=== PATIENT | male | born 1940 | race Caucasian/White ===

== ENCOUNTER 2024-10-22 14:35 | Outpatient (CLI) | payer OTHER, SELFPAY | END 2024-10-22 14:36 | disposition home or self-care (01) | LOC: AMB 10-23 13:07 | PROVIDERS: PCP Family Medicine; Visit Provider Student in an Organized Health Care Education/Training Program | DX: S79.912A Unspecified injury of left hip, initial encounter (principal); W01.0XXA Fall on same level from slipping, tripping and stumbling without subsequent striking against object, initial encounter; Y92.128 Other place in nursing home as the place of occurrence of the external cause | CPT/HCPCS: A0425; A0429 ==

== ENCOUNTER 2024-10-22 15:04 | Inpatient (IN) | payer OTHER, MEDICARE, SELFPAY ==
[2024-10-22] VITALS (9 sets, daily range): BP systolic 127–144; BP diastolic 88–109; PULSE 86–110; RESP 18–20; TEMP 36.6–37.3; O2SAT 91–97; BMI 25.8; BMI 23.0
--- NOTE | 2024-10-22 15:21 | CRLHL7_ITS ---
For Patients: As a result of the Century Cures Act, medical imaging exams and procedure reports are released immediately into your electronic medical record. You may view this report before your referring provider. If you have questions, please contact your health care provider. INDICATION: Fall. Pain. COMPARISON: Plain films same date. TECHNIQUE: Multidetector imaging bony pelvis without for 4 months and axial coronal and sagittal small field if performance. FINDINGS: Mildly impacted 4 5 mm ventral displaced and slightly ventrally angulated fractures through the mid cervical femoral neck. Osteopenia. Moderately severe osteoarthritic changes of the hip. No intra-articular extension of fracture. No significant joint effusion. Trigger hematoma or other fluid collection. Intact pelvis. Moderate os arthritis SI joints with gracile anterior bridging osteophytes on the left. Moderate os arthritis symphysis pubis. Moderate osteoarthritis right hip. Redundant colon. Moderate stool. Prominent diffuse atherosclerotic vascular calcifications. Mild prostatomegaly. And right inguinal hernia. The this appears indirect. IMPRESSION: Acute mildly impacted and slightly displaced transcervical fracture left femoral neck. Please note that all CT scans at this facility use dose modulation, iterative reconstruction, and/or weight-based dosing when appropriate to reduce radiation dose to as low as reasonably achievable. Dictated by Norbert Rm MD @ 10/22/2024 4:23:48 PM (Electronically Signed)
--- NOTE | 2024-10-22 15:22 | CRLHL7_ITS ---
For Patients: As a result of the Cures Act, medical imaging exams and procedure reports are released immediately into your electronic medical record. You may view this report before your referring provider. If you have questions, please contact your health care provider. INDICATION: Trauma. TECHNIQUE: CT cervical spine without contrast. COMPARISON: None. FINDINGS: No acute fracture. No listhesis. Bony mineralization is age appropriate. No prevertebral soft tissue hematoma or swelling. No soft tissue abnormality is identified. Multilevel spondylosis. No pathologically enlarged lymph nodes. Thyroid is normal. Emphysema in the apices. IMPRESSION: Unremarkable cervical spine CT. Please note that all CT scans at this facility use dose modulation, iterative reconstruction, and/or weight-based dosing when appropriate to reduce radiation dose to as low as reasonably achievable. Dictated by Devante Chamberlain MD @ 10/22/2024 4:46:59 PM (Electronically Signed)
--- NOTE | 2024-10-22 15:22 | CRLHL7_ITS ---
For Patients: As a result of the Century Cures Act, medical imaging exams and procedure reports are released immediately into your electronic medical record. You may view this report before your referring provider. If you have questions, please contact your health care provider. INDICATION: Trauma. TECHNIQUE: Head CT without contrast. COMPARISON: None. FINDINGS: Periventricular areas of low attenuation, likely due to chronic small vessel ischemic changes. Generalized volume loss. Atherosclerosis. Motion degrades fine detailed evaluation of levels. No intracranial hemorrhage. No discrete mass or mass effect. There is no midline shift. The basilar cisterns are patent. No hydrocephalus. The ayon-white matter interface is otherwise preserved. No acute osseous abnormality. No extracalvarial soft tissue abnormality. The mastoid air cells are clear. The paranasal sinuses are well-aerated. The visualized portions of the orbits and globes are unremarkable. IMPRESSION: No acute intracranial process per unenhanced head CT given the above constraints. Please note that all CT scans at this facility use dose modulation, iterative reconstruction, and/or weight-based dosing when appropriate to reduce radiation dose to as low as reasonably achievable. Dictated by Devante Chamberlain MD @ 10/22/2024 4:44:21 PM (Electronically Signed)
--- NOTE | 2024-10-22 15:45 | CRLHL7_ITS ---
For Patients: As a result of the Cures Act, medical imaging exams and procedure reports are released immediately into your electronic medical record. You may view this report before your referring provider. If you have questions, please contact your health care provider. INDICATION: Left hip pain, fall, injury, hip fracture TECHNIQUE: Pelvis radiograph, Hip radiograph 3 views left COMPARISON: None FINDINGS: Bone: There is a nondisplaced impacted fracture present in the left femoral neck. A linear lucency is seen overlying the right posterior acetabular wall. Moderate diffuse osteopenia is present. Joint: Moderate bilateral hip osteoarthritis is present. The visualized sacroiliac joints are unremarkable in appearance. The pubic symphysis is normal in appearance. Soft tissue: Unremarkable. No radiopaque foreign bodies are seen. IMPRESSION: 1. There is a nondisplaced impacted fracture present in the left femoral neck. 2. A linear lucency is seen overlying the right posterior acetabular wall. This may be an os acetabulum but correlation with physical exam is recommended to exclude an acute fracture. Dictated by Bhargav Ramsey MD @ 10/22/2024 4:41:41 PM Dictated by: Bhargav Ramsey MD @ 10/22/2024 16:42:20 (Electronically Signed)
--- NOTE | 2024-10-22 15:45 | CRLHL7_ITS ---
For Patients: As a result of the Cures Act, medical imaging exams and procedure reports are released immediately into your electronic medical record. You may view this report before your referring provider. If you have questions, please contact your health care provider. INDICATION: Recent chest injury from fall TECHNIQUE: Chest radiograph 1 view COMPARISON: None FINDINGS: Mediastinum: The mediastinum is normal in appearance. The cardiac silhouette is moderately enlarged but may be accentuated by the portable technique. Lung: Minimal left basilar atelectasis is present. No sign of pleural effusion seen. No pneumothorax is identified. Bone and Soft tissue: Unremarkable for age. IMPRESSIONS: 1. The cardiac silhouette is moderately enlarged but may be accentuated by the portable technique. 2. If there is a high clinical index of suspicion for rib injury, dedicated rib series radiographs are recommended. Dictated by Bhargav Ramsey MD @ 10/22/2024 4:43:02 PM Dictated by: Bhargav Ramsey MD @ 10/22/2024 16:43:05 (Electronically Signed)
--- NOTE | 2024-10-22 16:12 | ED_ITS ---
HPI - Fall General Date Seen: 10/22/24 Chief Complaint: Fall/Minor Trauma Stated Complaint: Hip injury Source: EMS Mode of arrival: EMS Limitations: altered mental status History of Present Illness HPI Narrative: Patient is an 83-year-old male on hospice care through [facility] present he EMS after fall. Per staff he did have a fall were skin is left knee and was complaining about hip pain after that. They also states he did hit his head. He is typically is ambulatory to the brought him in for evaluation. He is at his cognitive baseline. No other concerns noted. When I asked the patient what hurts he points to his hip. Is unable to give further history due to his dementia. Related Data Home Medications ?Medication ?Instructions ?Recorded ?Confirmed hyoscyamine sulfate 0.125 mg 0.125 mg PO TID PRN 10/22/24 10/22/24 sublingual tablet lorazepam 0.5 mg tablet 0.5 mg PO Q4H PRN 10/22/24 10/22/24 melatonin 3 mg tablet 6 mg PO HS PRN 10/22/24 10/22/24 morphine concentrate 100 mg/5 mL 5 mg PO Q4H 10/22/24 10/22/24 (20 mg/mL) oral solution quetiapine 25 mg tablet 25 mg PO QHS 10/22/24 10/22/24 venlafaxine 75 mg tablet,extended 75 mg PO DAILY 10/22/24 10/22/24 release 24 hr Allergies Allergy/AdvReac Type Severity Reaction Status Date / Time No Known Drug Allergies Allergy Verified 10/22/24 16:54 Review of Systems Status of ROS: Reports: unobtainable due to mental status PFSH PFS Social History Smoking Status: Never smoker Do you use any of these nicotine containing products: None How often do you have a drink containing alcohol: never AUDIT-C Alcohol total score: 0 Non-prescribed substance use: denies use Exam Narrative: Exam Narrative: Const: In mild distress Eyes: PERRL, no conjunctival injection, and symmetrical lids HENT: Atraumatic external nose and ears. Moist mucous membranes. Neck: Symmetric, trachea midline, No thyromegaly. CVS: RRR, No murmurs or gallops. Peripheral pulses 2+ and equal in all extremities RESP: Unlabored respiratory effort. Clear to auscultation bilaterally. GI: Nontender/Nondistended, No rebound or guarding. MSK: Tenderness to palpation left hip, visually grimaces when I pressed to his left hip Skin: Warm, Dry. Abrasion just below left knee Neuro: Normal Muscle tone, No focal neurological deficits as far as can be determined due to his severe dementia Psych: Awake, Alert, but only oriented to self when it comes to pain Const: Vital Signs, click to edit/add: Vital Signs - 24 hr 10/22/24 15:09 Temperature 97.8 F Pulse Rate [Pulse Oximeter] 89 Respiratory Rate 20 Blood Pressure [Ri ght Upper Arm] 144/92 H Pulse Oximetry 97 Oxygen Delivery Me thod Room Air Course Vital Signs Vital signs: Initial Vital Signs Temperature 97.8 F 10/22/24 15:09 Temperature Source Temporal Artery Scan 10/22/24 15:09 Pulse Rate 89 10/22/24 15:09 Respiratory Rate 20 10/22/24 15:09 Blood Pressure 144/92 H 10/22/24 15:09 Blood Pressure Mean 109 H 10/22/24 15:09 Pulse Oximetry 97 10/22/24 15:09 Oxygen Delivery Method Room Air 10/22/24 15:09 Vital Signs Temperature 97.8 F 10/22/24 15:09 Pulse Rate 89 10/22/24 15:09 Respiratory Rate 20 10/22/24 15:09 Blood Pressure 144/92 H 10/22/24 15:09 Pulse Oximetry 97 10/22/24 15:09 Oxygen Delivery Method Room Air 10/22/24 15:09 Temperature 97.8 F 10/22/24 15:09 Pulse Rate 89 10/22/24 15:09 Respiratory Rate 20 10/22/24 15:09 Blood Pressure 144/92 H 10/22/24 15:09 Pulse Oximetry 97 10/22/24 15:09 Oxygen Delivery Method Room Air 10/22/24 15:09 Medications Administered Medications: Discontinued Medications Generic Name Dose Route Start Last Admin Trade Name Freq PRN Reason Stop Dose Admin Lorazepam 0.5 mg 10/22/24 16:42 10/22/24 16:50 Lorazepam 0.5 Mg Tablet PO 10/22/24 16:43 0.5 mg ONCE ONE Administration Oxycodone HCl 5 mg 10/22/24 16:55 03/18/25 16:57 Oxycodone 5 Mg Tablet PO 10/22/24 16:56 5 mg ONCE ONE Administration Quetiapine Fumarate 25 mg 10/22/24 17:44 10/22/24 17:54 Quetiapine 25 Mg Tablet PO 10/22/24 17:45 25 mg ONCE ONE Administration MDM - Fall MDM Narrative Medical decision making narrative: Patient is a 3-year-old male presenting after a fall. Since his belief he hit his head will do CT scan head and cervical spine. Does have tenderness to his left hip as he visually grimaces when I push there does not grimace with depression your hours. Do believe I will need to do a CT scan of the hip to rule out any fractures. CT scan returned showing a left hip fracture. Will go and order a hip x-ray and chest x-ray for surgical planning. CT scan of the head and cervical spine reviewed by myself and the radiologist shows no acute fractures. Did do an EKG it shows he is in AFib. Since he is on hospice I had a conversation with the daughter on if she would even want surgery for him at this time. She states he is a very active person and gets most of his interim it from walking around his dementia work so she would like him to be admitted. I then spoke to the orthopedic provider who says that can do surgery on her tomorrow. I spoke to the hospitalist I was told that the patient has to have her hospice revoked. I then had multiple phone calls calling the daughter multiple times, her hospice provider multiple times, the hospitalist here [place] multiple times and while her hospice provider was saying he does not need to be off hospice everyone here in [place] says he needs to be off hospice to be admitted. The daughter did have some concern about him getting back on hospice after admission but I was told this should not be too much of a problem. She will take him off hospice and he will be admitted. Imaging Data CT scan head: Attestation: I have reviewed the pertinent imaging results. Radiologist's impression: No acute intracranial process per unenhanced head CT given the above constraints. Please note that all CT scans at this facility use dose modulation, iterative reconstruction, and/or weight-based dosing when appropriate to reduce radiation dose to as low as reasonably achievable. Dictated by Devante Chamberlain MD @ 10/22/2024 4:44:[address] scan cervical spine: Attestation: I have reviewed the pertinent imaging results. Radiologist's impression: Unremarkable cervical spine CT. Please note that all CT scans at this facility use dose modulation, iterative reconstruction, and/or weight-based dosing when appropriate to reduce radiation dose to as low as reasonably achievable. Dictated by Devante Chamberlain MD @ 10/22/2024 4:46:59 PM Chest x-ray: Attestation: I have reviewed the pertinent imaging results. Radiologist's impression: 1. The cardiac silhouette is moderately enlarged but may be accentuated by the portable technique. 2. If there is a high clinical index of suspicion for rib injury, dedicated rib series radiographs are recommended. Dictated by Bhargav Ramsey MD @ 10/22/2024 4:43:[address] scan hip: Attestation: I have reviewed the pertinent imaging results. Radiologist's impression: Acute mildly impacted and slightly displaced transcervical fracture left femoral neck. Please note that all CT scans at this facility use dose modulation, iterative reconstruction, and/or weight-based dosing when appropriate to reduce radiation dose to as low as reasonably achievable. Dictated by Norbert Rm MD @ 10/22/2024 4:23:48 PM Hip x-ray: Attestation: I have reviewed the pertinent imaging results. Radiologist's impression: 1. There is a nondisplaced impacted fracture present in the left femoral neck. 2. A linear lucency is seen overlying the right posterior acetabular wall. This may be an os acetabulum but correlation with physical exam is recommended to exclude an acute fracture. Dictated by Bhargav Ramsey MD @ 10/22/2024 4:41:41 PM ECG Data Attestation: I personally reviewed and interpreted this ECG as follows: Prior ECG tracings: not available for review Interpretation: AFib with a rate of 113 beats per minute, normal QRS, normal QTC, no ST or T- wave abnormalities. There was a large amount of artifact due to difficulty the patient still. Discharge Plan Discharge Clinical Impression: Closed fracture of left hip Qualifiers: Encounter type: initial encounter Qualified Code(s): S72.002A - Fracture of unspecified part of neck of left femur, initial encounter for closed fracture Patient Disposition: Admitted As Observation Condition: Stable Prescriptions: No Action venlafaxine 75 mg tablet extended release 24hr 75 mg PO DAILY quetiapine 25 mg tablet 25 mg PO QHS melatonin 3 mg tablet 6 mg PO HS PRN hyoscyamine sulfate 0.125 mg tablet, sublingual 0.125 mg PO TID PRN lorazepam 0.5 mg tablet 0.5 mg PO Q4H PRN morphine concentrate 100 mg/5 mL (20 mg/mL) solution 5 mg PO Q4H Follow Up/Referrals: Azael Beard MD [Primary Care Provider] -
[2024-10-22] MEDS: LORazepam 0.5 MG TABLET PO (16:50)
[2024-10-22] MEDS: OXYCODONE 5 MG TABLET PO (16:57)
--- OUTSIDE RECORDS SUMMARY | 2024-10-22 16:59 | XMS_ITS | Encounter Summary ---
Author Name [facility] [place] [facility] [place] Address [address], [place] [address] Care Team Providers Care Oil Deliverer Name Role Phone RANDA MARQUIS Primary Care Provider Unavailabl e Insurance Providers: All historical and current Section Date Range: From patient's date of to the date document was created. This section includes the names of all active insurance providers for the patient. Insurance Provider Type of Coverage Plan Name Start of Policy Coverage End of Policy Coverage Group Number Member ID Insurance Provider's Telephone Number Policy Henriquez's Name Patient's Relationship to Policy Henriquez MEDICARE (WNR) MEDICARE (M) PART A Nov 05, 2006 PART A [id number] Calos WEEKS RTMagaly PATIENT Selected Encounter This section includes the information on record at [place] for the Encounter. Date/Time Encounter Type Encounter Description Reason Pro vider Source Oct 24, 2023 10:26 AM Outpatient Encounter CLINICAL PHARMACY IHE Encounter Template Text not used by [place] Plan of Treatment: Future Appointments (+ 6 months) and Future Tests (+/- 45 days) The Plan of Treatment section includes future care activities for the patient from all [facility] treatment[facility]ilities. This section includes future appointments and future orders which are active, pending or scheduled. Future Appointments This section includes appointments that were scheduled to occur 6 months from the date of the Encounter, up to a maximum of 20 appointments. The data comes from all [place] treatment [facility]. Appointment Date/Time Appointment Type Appointme nt Facility Name Nov 09, 2023 01:30 PM [place]IC[place] [facility] Nov 09, 2023 02:00 PM [facility] [place]IC[place] [facility] Nov 10, 2023 01:00 PM [facility] - MEDICINE [facility] Nov 18, 2023 12:01 PM [facility]ORY - NONE [place] [facility] Nov 21, 2023 08:00 AM [place]ORY - NONE [place] [facility] Nov 21, 2023 08:01 AM [facility]ORY - NONE [place] [facility] Nov 29, 2023 03:00 PM AMBULATORY - REHAB MEDICIN E [facility] Dec 01, 2023 08:00 AM [facility]ORY - NONE [place] [facility] Dec 01, 2023 08:01 AM [place]ORY - NONE [place] [facility] December 14, 2023 05:00 PM AMBULATORY - REHAB MEDICIN E [facility] Jan 19, 2024 09:30 AM AMBULATORY - MEDICINE [facility] Jan 20, 2024 08:01 AM AM[facility]UL[facility]ORY - NONE [place] [facility] Feb 14, 2024 03:30 PM [place]ORY - [place]ICINE [place] [facility] Feb 26, 2024 01:15 PM [facility]ORY - NONE [place] [facility] Feb 26, 2024 02:00 PM AMBULATORY - REHAB MEDICIN E [facility] Mar 04, 2024 09:00 AM [facility] Mar 05, 2024 02:30 PM [facility] [place] [facility] Mar 15, 2024 11:00 AM [facility]ORY - NONE [place] [facility] Mar 27, 2024 08:30 AM AMBULATORY - PS[facility]CHIATRY [facility] Mar 27, 2024 08:31 AM AMBULATORY - PSYCHIATRY [facility] Lab Results: +/- 30 days of the encounter This section includes the Chemistry and Hematology Lab Results on record with [place] for the patient. Radiology Reports and Pathology Reports are provided separately, in subsequent sections. Lab Results This section contains the Chemistry/Hematology Results that were resulted 30 days before or 30 daysafter the date of the Encounter. Date/Time Source Result Type Result - Unit Interpretation Reference Range Comment Oct 24, 2023 01:50 PM [facility] URINALYSIS Specimen Type: URINE No comment entered. Ordering Provider: TOYIN WOLF Report Released Date/Time: Oct 24, 2023 12:23 PM Reporting Lab: [facility] [id number] Performing Lab: [facility] [id number] URINE COLOR COLORLESS SPECIFIC GRAVITY 1.011 1.003-1.03 5 URINE BILIRUBIN NEGATIVE NEGATIVE URINE KETONES NEGATIVE NEGATIVE URINE GLUCOSE NEGATIVE mg/dL URINE PROTEIN NEGATIVE mg/dL URINE PH 5.0 5.0-8.0 URINE WBC/HPF NONE SEEN /[HPF] 0-7 URINE BACTERIA NONE SEEN URINE RBC/HPF <1 /[HPF] 0-3 APPEARANCE CLEAR SQUAMOUS EPITHELIAL NONE SEEN /[HPF] URINE BLOOD NEGATIVE NEGATIVE URINE NITRITE NEGATIVE NEGATIVE LEUKOCYTE ESTERASE NEGATIVE NEGATIVE Oct 24, 2023 12:46 PM [facility] B 12 Specimen Type: SERUM No comment entered. Ordering Provider: TOYIN WOLF Report Released Date/Time: Oct 24, 2023 12:23 PM Reporting Lab: [facility] [id number] Performing Lab: [facility] [id number] B 12 454 pg/mL 213-816 Oct 24, 2023 12:46 PM [facility] FOLATE Specimen Type: SERUM No comment entered. Ordering Provider: TOYIN WOLF Report Released Date/Time: Oct 24, 2023 12:23 PM Reporting Lab: [facility] [phone] Performing Lab: [facility] [id number] FOLATE 14.1 ng/mL >7.0 Oct 24, 2023 12:46 PM [facility] BNP Specimen Type: PLASMA No comment entered. Ordering Provider: TOYIN WOLF Report Released Date/Time: Oct 24, 2023 12:23 PM Reporting Lab: [facility] [id number] Performing Lab: [facility] [id number] BNP 100 pg/mL H <99 Oct 24, 2023 12:46 PM [facility] COMPREHENSIVE METABOLIC PANEL+MG Specimen Type: PLASMA No comment entered. Ordering Provider: TOYIN WOLF Report Released Date/Time: Oct 24, 2023 12:23 PM Oct 24, 2023 12:46 PM [facility] TSH W/REFLEX TO FREE T4 Specimen Type: PLASMA No comment entered. Ordering Provider: TOYIN WOLF Report Released Date/Time: Oct 24, 2023 12:23 PM Reporting Lab: [facility] [phone] Performing Lab: [facility] [phone] TSH 3.11 u[IU]/mL 0.35-4.94 Oct 24, 2023 12:46 PM [facility] PROTHROMBIN TIME/INR Specimen Type: PLASMA No comment entered. Ordering Provider: TOYIN WOLF Report Released Date/Time: Oct 24, 2023 12:23 PM Reporting Lab: [facility] [phone] Performing Lab: [facility] [phone] .INR 1.2 H 0.8-1.1 .PT 13.8 s H 9.4-12.5 Oct 24, 2023 12:46 PM [facility] CBC & DIFF Specimen Type: BLOOD Comment: Automated Differential Performed Ordering Provider: TOYIN WOLF Report Released Date/Time: Oct 24, 2023 12:23 PM Reporting Lab: [facility] [phone] Performing Lab: [facility] [phone] WBC 8.08 10*3/uL 4.0-11.0 RBC 4.78 10*6/uL 4.6-6.2 HGB 14.5 g/dL 13.5-17.9 HCT 44.1 41-54 MCV 92.3 fL 80-100 MCH 30.3 pg 27-33 MCHC 32.9 g/dL 32.0-37.5 PLT 178 10*3/uL 150-400 MPV 8.7 fL 7.4-10.4 NEUT 59.8 40.0-80.0 LYMPHS 27.6 15.0-45.0 MONO 7.4 2.0-12.0 EOSINO 3.8 0.0-6.0 BASO 1.0 0.0-2.0 RDW 12.5 11.5-14.5 ABS LYMPH 2.23 10*3/uL 1.0-4.0 ABS MONO 0.60 10*3/uL 0.1-1.0 ABS NEUT 4.83 10*3/uL 2.0-7.7 ABS EOS 0.31 10*3/uL 0-0.5 ABS BASO 0.08 10*3/uL 0-0.2 IG(META,MYELO,P RO) 0.4 ABS IMMATURE GRAN 0.03 10*3/uL 0-0.1 Vital Signs: All taken on the encounter date This section contains inpatient and outpatient Vital Signs collected on the date of the Encounter. Date/Time Temperature Pulse Blood Pressure Respiratory Rate SP02 Pain Height Weight Body Mass Index Source Oct 24, 2023 03:27 PM 202 [facility] Oct 24, 2023 02:15 PM 75 134/83 20 99 [facility] Oct 24, 2023 11:19 AM 78 16 99 1 [facility] Oct 24, 2023 11:19 AM 97.5 132/94 [facility] Advance Directives: All historical and current Section Date Range: From patient's date of to the date document was created. This section includes ALL of a patient's completed or amended [place] Advance and Rescinded Directives. The entries below indicate that a directive exists for the patient, but an actual copy is not included with this document. The data comes from all [place] facilities. Date Advance Directives Provider Source Jan 30, 2024 ADVANCE DIRECTIVE JAYME CORTEZ [facility] Jan 30, 2024 ADVANCE DIRECTIVE DISCUSSION GILDARDO CORTEZ [facility] Jan 29, 2024 STATE-AUTHORIZED POR TABLE ORDERS SUE PINO [facility] Oct 24, 2023 RESCINDED ADVANCE DIRECTIVE JASON [facility] Oct 24, 2023 ADVANCE DIRECTIVE DISCUSSION SUPA LUOIS [facility] Radiology Reports: +/- 30 days of the encounter Radiology Reports For cases when an order for radiology services may have been completed prior to the date of the Encounter, the report list includes the Radiology Reports that were completed up to 30 days before dateof the Encounter. For cases when an order for radiology services may have been completed after the date of the Encounter, the report list also includes the Radiology Reports that were completed up to30 days after date of the Encounter. The data comes from all [place] treatment facilities. Date/Time Radiology Report Provider Source Oct 24, 2023 01:37 PM CHEST 2 VIEWS PA A ND LAT: JUSTYNA WEEKS [id number] -[id number] M Exm Date: OCT 24, 2023@13:37 Req Phys: TOYIN WOLF Loc: [facility] EMERGENCY DEPT WALK-IN (Re Img Loc: MAIN X-RAY Service: Unknown (Case [id number] COMPLETE) CHEST 2 VIEWS PA AND LAT (RAD Detailed) CPT:52127 Reason for Study: CHF Clinical History: IS NOT under investigation for COVID-19 or is COVID-19 negative CHF, dementia Responsible provider name and phone number to notify for critical findings if other than user placing the order and pager listed below: User placing orders pager: [phone] LAST CREATININE____ Report Status: Verified Date Reported: OCT 24, 2023 Date Verified: OCT 24, 2023 Powerhouse Mechanic Apprentice E-Sig:/ES/SIENNA CARPIO MD, FACR, CCD Report: EXAMINATION: CHEST 2 VIEWS PA AND LAT 10/24/2023 1:37 PM INDICATION: CHF COMPARISON: None. FINDINGS: The cardiac silhouette appears to be borderline enlarged. The pulmonary vasculature appears to be within normal limits. The lungs appear clear of infiltrate. No pleural fluid identified. Degenerative changes thoracic spine. Impression: No active pulmonary disease identified. Primary Interpreting Staff: SIENNA CARPIO MD, FACR, STAFF RADIOLOGIST (Powerhouse Mechanic Apprentice) /BSF SIENNA CARPIO [facility] Oct 24, 2023 01:[address] HEAD (P): JUSTYNA WEEKS [id number] -[id number] M Exm Date: OCT 24, 2023@13:25 Req Phys: TOYIN WOLF Loc: [facility] EMERGENCY DEPT WALK-IN (Re Img Loc: CT IMAGING Service: Unknown (Case [id number] COMPLETE) CT HEAD/BRAIN W/O CONTRAST (CT Detailed) CPT:69347 Reason for Study: AMS Clinical History: LAST 3: No data available for: CREATININE .CREAT EGFR(CKD-EPI) Allergies: (Fords only) Patient has answered NKA Defer to radiologist for final CT protocol. Contact number for responsible provider who can be reached for any questions or notifications of critical findings: ER Sergio Per Joint Commission Standards, by signing this diagnostic imaging request the ordering provider confirms they have considered patients age and recent imaging history. Report Status: Verified Date Reported: OCT 24, 2023 Date Verified: OCT 24, 2023 Powerhouse Mechanic Apprentice E-Sig:/ES/CITLALI MERA MD Report: EXAM: CT HEAD/BRAIN W/O CONTRAST HISTORY: AMS Reason for Study: AMS LAST 3: No data available for: CREATININE .CREAT EGFR(CKD-EPI) Allergies: ([place]ords only) Patient has answered NKA Defer to radiologist for final CT protocol. Contact number for responsible provider who can be reached for any questions or notifications of critical findings: JESSE Wolf Per Joint Commission Standards, by signing this diagnostic imaging request the orderi COMPARISON: None TECHNIQUE: Routine axial noncontrast acquisition. Routine sagittal and coronal reconstructions. Dose: Total DLP 806. FINDINGS: Small focus of encephalomalacia at the right occipital lobe consistent with chronic infarct. Small focus of encephalomalacia at the right cingulate gyrus consistent with chronic infarct. Small focus of encephalomalacia at the right temporal lobe consistent with a chronic infarct. Patchy areas of hypodense white matter in the cerebral hemispheres consistent with small vessel ischemia. Remaining brain parenchyma is within normal limits. No evidence of intracranial hemorrhage, intracranial mass effect or hydrocephalus. Arterial calcification at the anterior circulation. Imaged paranasal sinuses are within normal limits. Skull is within normal limits. Impression: 1. 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 2. Mild amount of small vessel ischemia. 3. Arterial calcification. Primary Interpreting Staff: CITLALI MERA MD, RADIOLOGIST (Powerhouse Mechanic Apprentice) /CITLALI PIZANO [facility] Encounter Notes: All associated encounter notes This section contains the clinical notes associated to the Encounter. Date/Time Encounter Note(s) Provider Source Oct 24, 2023 02:45 PM REPORT OF CONTACT: LOCAL TITLE: PATIENT CONTACT NOTE - PHARMACY STANDARD TITLE: REPORT OF CONTACT DATE OF NOTE: OCT 24, 2023@14:45 ENTRY DATE: OCT 24, 2023@14:45:52 AUTHOR: CESAR SEXTON EXP COSIGNER: URGENCY: STATUS: COMPLETED Patient Contact Name/Relationship of contact if other than : Nuzhat (daughter) Date & Time of Contact: Oct@12:00 Type of Contact: In person Reason for Contact: Other: Identification of patient medictions which were presented by family in a bag. All meds on this list EXCEPT alprazolam were in the patient's bag given to pharmacy for identification. Alprazolam was not present with the patient or family at time of interview. All meds in this bag were returned to family with instructions for the family to take the meds home or to destroy the medications. Action: Other: Medications identified and list created (see below). Comments: Belarusian/ Greek Alprazolam 2mg (1/2 tablet)/ Alprazolam Brexpiprazole 2mg/ Brexpiprazole Dabigatran 110 mg capsule/ Dabigatran Donepecilo 10mg tablets/ Donepexil Enalapril 10mg tabletas/ Enalapril Espironolactona 25mg tablets/ Spiranolactone Furosemida tabletas 40mg/ Furosemide Pancreatina Capsula 150mg (Creon)/ Creon * Lipasa/Lipase 10,000 UI * Amilasa/Amylase 45,600 UI * Proteasa/Protease 38,400 UI Sertraline Amarox 50mg filmomhulde tableten (Mongolian) Sertraline Sertalina Capsulas 50mg Sertraline Sildenafilo 50mg/ Sildenafil Vortioxetina Timothy 10mg/ Vortioxetine NON-LEGEND OTC PRODUCTS Centrum Balance Tabletas (multivitamin) Centrum Balance Centrum Silver +50 Tabletas (multivitamin) Centrum Silver +50 /es/ CESAR SEXTON Pharmacist Signed: 10/24/2023 15:02 CESAR SEXTON [facility]
--- OUTSIDE RECORDS SUMMARY | 2024-10-22 16:59 | XMS_ITS | Encounter Summary ---
Author Name [place] Address [address], [place] [address] Care Team Providers Care Support Teacher Name Role Phone RANDA MARQUIS Primary Care [...] PART A Nov 05, 2006 PART A [id number] [phone] Calos WEEKS RTR PATIENT Selected Encounter This section includes the information on record at [place] for the Encounter. Date/Time Encounter Type Encounter Description Reason Provider Source Oct 15, 2024 12:25 PM RN CARE EA 15 MIN HH/HOSPICE [facility] FOLLOW-UP ICD-10-CM F03.B18 Unsp dementia, moderate, with other behavioral disturb TERELL AGUILA Encounter Template Text not used by [facility] Assessments - Encounter Diagnoses This section includes the primary and secondary diagnoses documented for the Encounter. Date/Time Primary/Secondary Diagnosis Diagnosis Name Provider Source Oct 16, 2024 10:32 AM PRIMARY Unsp dementia, moderate, with other behavioral disturb TERELL AGUILA [facility] Plan of Treatment: Future Appointments (+ 6 months) and Future Tests (+/- 45 days) The Plan of Treatment section includes future care activities for the patient [facility] [place] [facility] This section includes future appointments and future orders which are active, pending or scheduled. Future Appointments This section includes appointments that were scheduled to occur 6 months from the date of the Encounter, up to a maximum of 20 appointments. The data comes from all [place] treatment facilities. Appointment Date/Time Appointment Type Appointme nt Facility Name Nov 06, 2024 02:30 PM AMBULATORY - MEDICINE [facility] Advance Directives: All historical and current Section Date Range: From patient's date of to the date document was created. This section includes ALL of a patient's completed or amended [place] Advance and Rescinded Directives. The entries below indicate that a directive exists for the patient, but an actual copy is not included with this document. The data comes from all [facility]. Date Advance Directives Provider Source Jan 30, 2024 ADVANCE DIRECTIVE JAYME CORTEZ [facility] Jan 30, 2024 ADVANCE DIRECTIVE DISCUSSION GILDARDO CORTEZ [facility] Jan 29, 2024 STATE-AUTHORIZED POR TABLE ORDERS SUE PINO [facility] Oct 24, 2023 RESCINDED ADVANCE DIRECTIVE JASON [facility] Oct 24, 2023 ADVANCE DIRECTIVE DISCUSSION SUPA [facility] Encounter Notes: All associated encounter notes This section contains the clinical notes associated to the Encounter. Date/Time Encounter Note(s) Provider Source Oct 16, 2024 10:25 AM COMMUNITY SHELTER CARE NOTE: LOCAL TITLE: COMMUNITY SHELTER RESIDENT ASSESSMENT STANDARD TITLE: COMMUNITY SHELTER CARE NOTE DATE OF NOTE: OCT 16, 2024@10:25 ENTRY DATE: OCT 16, 2024@10:25:42 AUTHOR: SCOTT AGUILA COSIGNER: URGENCY: STATUS: COMPLETED SUBJECT: [facility] ([facility]) Resident Assessment GENERAL INFORMATION DS - Disabilities Eligibility: NSC VERIFIED Visit completed by: Nurse Date of visit: October 15, 2024 [facility] ([facility]) Name: [facility] Type of visit: On-site Information provided by: [place] Reason for placement: Hospice INFORMATION OBTAINED DURING VISIT WITH ASSESSMENT OF COGNITION, COMMUNICATION, MOOD AND BEHAVIOR ----- Mental status: Alert voiced, experienced, or reported delusions (misconceptions or beliefs that are firmly held, contrary to reality), hallucinations (perceptual experiences in the absence of real or external sensory stimuli) or any other unusual thought process/content/altered perception during the visit: No Thought content: Within normal limits Mood/behavior: Cooperative/pleasant Hearing: Adequate (no difficulty in normal conversation) Vision: Impaired- utilizes corrective lenses Speech: Clear speech (distinct intelligible words) Communication (ability to understand): Sometimes understands (responds to simple/direct communication only) Communication (ability to be understood): Sometimes understood (ability is limited) SUICIDE SCREEN Annual C-SSRS completed. SATISFACTION is satisfied with care received at the [facility]. [place] reported no other concerns/complaints since placement or last visit. /Dater Assembler feels 's rights as a resident of a halfway have been maintained (i.e., the right to be treated with dignity and respect, free from abuse, neglect and discrimination based on race, color, national origin, disability, age, sex, sexual orientation, or spiritism): Yes [facility] staff provided a copy of the [place] reference sheet, containing contact information for [facility] staff and the [facility] margarita, to the /Dater Assembler: N/A, annual requirement previously met appears to be well adjusted to residing in this [facility]: Yes [place] is offered daily activities: Yes [place] is offered spiritual services: Yes [facility] STAFF OBSERVATIONS Quality of sensory and environmental aesthetic is adequate: Yes Facility cleanliness is adequate: Yes Fluids available: Yes [place]'s appearance: [place] appeared: Appropriately groomed, dressed for time of day long term staff is courteous: Not observed Total time spent for visit (in minutes) 5 min Total travel time 90 min INFORMATION OBTAINED FROM [facility] MEDICAL RECORD REVIEW Hospitalization since placement or last visit: No Emergency room visit since placement or last visit: No CLINICAL REVIEW Socialization Ability: Fair Restraint free since placement or last visit: Yes Behavioral symptoms present: No FUNCTIONAL STATUS Activity of Daily Living (ADL) Loss of ADL function since placement or last visit: No Weights and vital signs recorded monthly, or as ordered: Yes Most recent weight taken by [facility] staff: Weight (lbs): 174 Date: October 13, 2024 Weight loss of 5% or greater in the last 3 months: Yes Explanation: hospice, comfort focus Diet: Regular Skin assessment completed at appropriate intervals: Yes Pressure injuries: None Specialized wound care: None Pain management is effective: Yes DOCUMENTATION OVERSIGHT Physician, Nursing, and Investigator Welfare documentation completed at regular intervals in accordance with State regulations: Yes assessed by a provider at required intervals: Yes As needed (PRN) medication effectiveness is documented: Yes [facility] Plan of Care updated: Yes Date Plan of Care updated: September 12, 2024 Care plan reflects [place]'s individualized care needs and includes multidisciplinary participation: Yes LIFE-SUSTAINING TREATMENT [place]'s preferences for Life-Sustaining Treatment (LST) are documented and have been reviewed in the [facility] medical record: No [place]'s Life-Sustaining Treatment (LST) progress note and orders are documented in the [place] medical record: No Explanation: NA SAFETY ------ has not fallen since placement or last visit. No medication errors since placement or last visit. [place] attempted to elope from the facility: No Evidence of abuse/neglect either confirmed or under investigation: No Other adverse event(s) since placement or last visit: No LEVEL OF CARE MDS RUG or PDPM score is consistent with the [place]'s care needs. DISPOSITION appears with low care needs where an alternative level of care may be appropriate: No Discharge plan in place: N/A, [place] is receiving intermediate designer care (LTC) PROGRAM CARE COORDINATION PLAN ---- [place] PLAN OF CARE: Routine oversight of veterans [facility] care Total time spent for chart review (in minutes) 15 min /tierra/ Scott Aguila, blending operator Health Nurse Coordinator Signed: 10/16/2024 10:32 SCOTT AGUILA [facility]
--- OUTSIDE RECORDS SUMMARY | 2024-10-22 16:59 | XMS_ITS | Encounter Summary ---
Author Name [facility] [place] Address [address] [facility], [place] [address] Care Team Providers Care Golf Ball Trimmer Name Role Phone SOLITARIO MARQUISE Primary Care Provider Ibis birch Insurance Providers: All historical and current Section [...] PART A Nov 05, 2006 PART A [id number] [phone] Calos WEEKS RTMagaly PATIENT Selected Encounter This section includes the information on record at [place] for the Encounter. Date/Time Encounter Type Encounter Description Reason Provider Source Oct 10, 2024 03:00 PM Outpatient Encounter TELEPHONE TRIAGE MARIA E LEVI Encounter Template Text not used by [place] Plan of Treatment: Future Appointments (+ 6 [...] 20 appointments. The data comes from all [facility] facilities. Appointment Date/Time Appointment Type Appointme nt Facility Name Nov 06, 2024 02:30 PM [facility] Advance Directives: All historical and current Section Date Range: From patient's date of to the date document was created. This section includes ALL of a patient's completed or amended [place] Advance and Rescinded Directives. The entries below indicate that a directive exists for the patient, but an actual copy is not included with this document. The data comes from all [facility]. Date Advance Directives Provider Source Jan 30, 2024 ADVANCE DIRECTIVE JAYME CORTEZ [facility] Jan 30, 2024 ADVANCE DIRECTIVE DISCUSSION GILDARDO CORTEZ [facility] Jan 29, 2024 STATE-AUTHORIZED POR TABLE ORDERS SUE [facility] Oct 24, 2023 RESCINDED ADVANCE DIRECTIVE JASON [facility] Oct 24, 2023 ADVANCE DIRECTIVE DISCUSSION SUPA [facility] Encounter Notes: All associated encounter notes This section contains the clinical notes associated to the Encounter. Date/Time Encounter Note(s) Provider Source Oct 10, 2024 03:00 PM RN PROGRESS NOTE: LOCAL TITLE: CCC: CLINICAL TRIAGE STANDARD TITLE: RN PROGRESS NOTE DATE OF NOTE: OCT 10, 2024@15:00:37 ENTRY DATE: OCT 10, 2024@15:00:37 AUTHOR: MARIA E LEVI COSIGNER: URGENCY: STATUS: COMPLETED Patient Demographics Patient Name: JUSTYNA WEEKS Patient Primary Address: [address] [place] [address] Patient Primary Phone: [phone] Patient : 1940 Patient Age: 83 Call Back Number: [phone] Caller/Recipient Relation to Patient: Other If Other Describe Relation to Patient: Daughter Caller Name: Mary Alice Watson Emergency Contact: NANDINI WATSON Triage Summary Conducted triage/discussed symptoms Pain Score: 8 (Severe Pain) Utilized the Triage Tool: Yes Chief Complaint: Skin Lesion System WHEN: Within 8 Hours Nurse's Recommendation / WHEN: Within 24 Hours System WHERE: Urgent care center Nurse's Recommendation / WHERE: Other Nurse's Other / WHERE: Hospice team Patient Disposition Patient/Caregiver agrees to plan of care: Yes Patient WHERE: Other Other - Patient Where Disposition: Hospice team Patient WHEN: Within 24 hours Nursing Plan and Disposition Other course(s) of action Generated msg to PACT/Provider Provided guidance for worsening symptoms: *Caller/Patient* advised to call facilities [place] Clinical Contact Center or seek immediate medical attention for new or worsening symptoms Nurse Summary Nurse Summary: PATIENT CONCERN/DURATION/ONSET: Hastings's daughter Mary Alice Watson at [phone] is with her father at the [place] where he is at under Hospice services. She is reporting on the back of his leg (didn't get which leg) there is a silver dollar sized skin area that his hot and looks infected. She had the [place] nurse come and look at this area and she said they could apply a warm pack. The is on antibiotics starting Monday night. No further information available on med. This agent explained he is on Hospice care-need to call that team to discuss treatment plan for lancing per her request as he has no pact team listed with him being in a LTC facility and on hospice. WHAT HAS PATIENT TRIED TO TREAT THE SYMPTOMS: ABX since Monday not helping? SL Morphine for the pain-unable to determine HISTORY/PREVIOUS TREATMENT: Dementia, Hospice care in LTC facility, [facility], [facility] coordination WHAT IS PATIENT GOAL FOR THE CALL: Advice on where to get this lanced Was Care Now considered (TELE or VVC)? no WEB PUBLISHER DISPOSITION: Recommended triage is < 24 hrs defer to his Hospice Team and will view alert his [facility] coordinator as listed in chart for further care management. She verbalizes understanding of plan of care and agrees with plan of care. Best contact for is (Verified). [phone] This note was created by a [address] distribution agent. Please do not alert this nurse by adding as a signer for future communications. Alerts are not monitored by this user, please reach out to [facility] Leadership instead if indicated. Clinical Contact Center Codes Clinic/Location: V23 [facility] PHONE CCC RN Decision Support System Output: Triage Complete Triage Date: 10/10/2024, 02:48 PM Triage Note: Decision Support Tool Used: TXCC Phone Triage Marian, 10 Oct 2024 20:42:11 +0000 [facility] Demographics 83 y/o Male Results CC: Skin Lesion Software suggested: Within 8 Hours Software suggested follow-up location: Urgent care center, consider virtual care Values and Measures Duration of CC: 2 Days Positive Responses HPI: skin erythema, around skin lump or bump HPI: skin lump, painful, moderate to severe HPI: skin lump, painful, swollen VS: temperature not taken Negative Responses Denies: HPI: red streaks, from the skin lump or bump Denies: HPI: vomiting Education Log Follow hospice or [place] directive for care, continue med as prescribed, warm pack as tolerates Need to consult with Hospice team for further care assistance IMPORTANT: This note was created by [facility] Clinical Contact Center staff. Please do not alert the staff member by adding them as a signer for future communications. Alerts are not monitored by this user. /tierra/ TESHA Lunsford, RN, [facility] VISN23 [facility] Signed: 10/10/2024 15:00 Receipt Acknowledged By: 10/22/2024 11:55 /es/ Candy Aguila, is technician Health Nurse Coordinator 10/11/2024 09:47 /es/ YUE MARIN [facility] Community [employer] Manager MARIA E LEVI [facility]
--- OUTSIDE RECORDS SUMMARY | 2024-10-22 16:59 | XMS_ITS | Encounter Summary ---
Author Name [facility] [place] Address [address] [facility], [place] [address] Care Team Providers Care Metal Cleaner Name Role Phone RANDA MARQUIS Primary Care [...] PART A Nov 05, 2006 PART A [id number] [phone] Calos WEEKS RTMagaly PATIENT Selected Encounter This section includes the information on record at [place] for the Encounter. Date/Time Encounter Type Encounter Description Reason Pro vider Source Mar 04, 2024 09:00 AM Outpatient Encounter PSYCHOLOGICAL TESTING IHE Encounter Template Text not used by [place] Plan of Treatment: Future Appointments (+ 6 [...] 20 appointments. The data comes from all [facility]. Appointment Date/Time Appointment Type Appointme nt Facility Name Mar 05, 2024 02:30 PM AMBULATORY - SURGERY [facility] Mar 15, 2024 11:00 AM [facility] Mar 27, 2024 08:30 AM AMBULATORY - PSYCHIATRY [facility] Mar 27, 2024 08:31 AM AMBUL[facility] - [facility] Mar 28, 2024 10:45 AM AMBULATORY - NONE [facility] Apr 11, 2024 08:00 AM AMBULATORY - SURGERY [facility] Apr 11, 2024 08:01 AM AMBULATORY - NONE [facility] Apr 30, 2024 09:30 AM AMBULATORY - MEDICINE ALBE [facility] May 09, 2024 11:00 AM AMBULATORY - SURGERY [facility] May 15, 2024 12:30 PM AMBULATORY - NONE [facility] May 15, 2024 01:30 PM AMBULATORY - MEDIC[facility] May 15, 2024 02:30 PM AMBULATORY - REHAB MEDICIN E [facility] May 20, 2024 08:00 AM AMBULATORY - NONE [facility] Active, Pending, and Scheduled Orders This section includes a listing of several types of active, pending, and scheduled orders, including clinic medications orders, diagnostic test orders, procedure orders and consult orders; where the start date of the order is 45 days before the date of the Encounter or 45 days after the date of theEncounter. The data comes from all [facility]. Test Date/Time Test Type Test Details Facility Name Feb 14, 2024 12:00 AM Laboratory - Chemi stry Order ENTERIC PATHOGEN PCR PANEL STOOL FECES SP ONCE [facility] Lab Results: +/- 30 days of the encounter This section includes the Chemistry and Hematology Lab Results on record with [place] for the patient. Radiology Reports and Pathology Reports are provided separately, in subsequent sections. Lab Results This section contains the Chemistry/Hematology Results that were resulted 30 days before or 30 daysafter the date of the Encounter. Date/Time Source Result Type Result - Unit Interpretation Reference Range Comment Mar 15, 2024 11:43 AM [facility] POC CREATININE Specimen Type: BLOOD No comment entered. Ordering Provider: RANDA MARQUIS Report Released Date/Time: Mar 15, 2024 11:44 AM Reporting Lab: [facility] [id number] Performing Lab: [facility] [id number] POC CREATININE 1.1 mg/dL 0.6-1.3 Feb 26, 2024 04:14 PM [facility] LIPID PANEL,FASTING Specimen Type: PLASMA No comment entered. Ordering Provider: SANYA ORTIZ Report Released Date/Time: Feb 26, 2024 03:43 PM Reporting Lab: [facility] [id number] Performing Lab: [facility] [id number] CHOLESTEROL 156 mg/dL <199 TRIGLYCERIDE 74 mg/dL <149 .HDL 46 mg/dL >40 LDL CALCULATION 95 mg/dL <99 VLDL CALCULATION 15 mg/dL <29 NON HDL CHOLESTEROL 110 mg/dL <129 Feb 26, 2024 01:28 PM [facility] TTG AB,IGA Specimen Type: SERUM Comment: REFERENCE RANGE: <15.0 U/mL Value Interpretation <15.0 Antibody not detected > or = 15.0 Antibody detected Test Performed by [facility], [facility], [address] [place] [address] Rolando Arzola M.D., Ph.D., Director of Laboratories , [facility] [id number] Ordering Provider: EMIL MEDINA Report Released Date/Time: Feb 14, 2024 04:28 PM Reporting Lab: [facility] [id number] Performing Lab: [address] TTG AB,IGA <1.0 SEE BELOW Feb 26, 2024 01:28 PM [facility] IGA Specimen Type: PLASMA No comment entered. Ordering Provider: EMIL MEDINA Report Released Date/Time: Feb 14, 2024 04:28 PM Reporting Lab: [facility] [id number] Performing Lab: [facility] [address] IGA 587.8 mg/dL 63.0-645.0 Advance Directives: All historical and current Section Date Range: From patient's date of to the date document was created. This section includes ALL of a patient's completed or amended [place] Advance and Rescinded Directives. The entries below indicate that a directive exists for the patient, but an actual copy is not included with this document. The data comes from all [place] facilities. Date Advance Directives Provider Source Jan 30, 2024 ADVANCE DIRECTIVE JAYME CORTEZ [facility] Jan 30, 2024 ADVANCE DIRECTIVE DISCUSSION GILDARDO CORTEZ [facility] Jan 29, 2024 STATE-AUTHORIZED POR TABLE ORDERS SUE PINO [facility] Oct 24, 2023 RESCINDED ADVANCE DIRECTIVE [facility] Oct 24, 2023 ADVANCE DIRECTIVE DISCUSSION [facility] Radiology Reports: +/- 30 days of [...] the Encounter. The data comes from all [place] treatment facilities. Date/Time Radiology Report Provider Source Mar 28, 2024 10:55 AM MRI-BRAIN (P): MICKYJUSTYNA JERAMIE [id number] -1940 M Ex Date: MAR 28, 2024@10:55 Req Phys: SANYA ORTIZ Loc: [facility] (Req'g Loc) Img Loc: MRI IMAGING Service: [place] [address] THIS IS AN AMENDED REPORT (Case [id number] COMPLETE) MRI BRAINBRAINSTEM W & W/O CONTRA(MRI Detailed) CPT:38005 Contrast Media : Gadolinium Reason for Study: CVA w/u (Case [id number] COMPLETE) MRA HEAD W/O CONTRAST (MRI Detailed) CPT:73120 ( 2x ) MRI 3D SCANNER RECONSTRUCTION (MRI Detailed) CPT:71806 Contrast Media : Gadolinium (Case [id number] COMPLETE) MRA NECK W & W/O CONTRAST (MRI Detailed) CPT:30278 Contrast Media : Gadolinium Clinical History: Per Joint Commission Standards, by signing this diagnostic imaging request the ordering provider confirms they have considered patients age and recent imaging history. Did the ordering provider speak with a performance improvement consultant regarding this imaging exam? No Cerebrovasular disease and dementia Responsible provider name and phone number to notify for critical findings if other than user placing the order and pager listed below: User placing orders pager: LAST CREATININE 1.1 (10/24/23) Allergies: Patient has answered NKA Report Status: Verified Date Reported: MAR 28, 2024 Date Verified: MAR 28, 2024 Flour Blender Helper E-Sig:/ES/DILCIA ELIZABETH MD Report: MRI BRAINBRAINSTEM W & W/O CONTRAST, MRA HEAD W/O CONTRAST, MRI 3D SCANNER RECONSTRUCTION, MRA NECK W & W/O CONTRAST, MRI 3D SCANNER RECONSTRUCTION 03/28/2024 10:55 AM HISTORY: Cerebrovascular disease; dementia; stroke workup. TECHNIQUE: MRI of the brain was performed before and after the administration of intravenous contrast. MRA of the neck was performed before and after the administration of intravenous contrast, including three-dimensional image postprocessing. MRA of the brain was performed without intravenous contrast, including three-dimensional image postprocessing. CONTRAST: Gadavist 10 mL. COMPARISON: No prior MRI or MRA studies are available for comparison. Correlation is made to head CT without contrast dated 10/24/2023. FINDINGS: BRAIN MRI: No intracranial mass or abnormal enhancement is identified. There is no evidence of an acute infarct. Stable localized areas of encephalomalacia centered in the right anterior cingulate gyrus, right posterolateral temporal lobe, and right inferomedial occipital lobe are consistent with chronic infarcts. Stable chronic lacunar infarcts are present in the right ng radiata along the superoposterior putaminal margin, and in the left anterior putamen. An additional tiny focal chronic infarct involves cortex in the right inferomedial parietal lobe. Patchy and focal areas of FLAIR hyperintensity in the bilateral supratentorial white matter and erick are nonspecific, but likely reflect mild to moderate chronic microangiopathic change in this 83-year-old patient. Stable bilateral cerebral volume loss remains between moderate and moderate to severe. Accompanying bilateral hippocampal volume loss is again noted. There is no evidence of superimposed hydrocephalus. No intracranial hemorrhage is identified. The major intracranial vascular flow voids are visualized. Although new, mild mucosal thickening in the right middle ethmoid air cell and minimal fluid in a few right posterior mastoid air cells are likely incidental. The left mastoid air cells and remaining paranasal sinuses are well aerated. An ovoid lesion located in the right posterior parotid gland measures 0.9 craniocaudal x 1.0 cm anteroposterior x 0.9 cm transverse. This demonstrates moderate T2 hyperintensity, mild to moderate T1 hypointensity, and slightly heterogeneous enhancement. This is suspicious for a primary parotid neoplasm. This location was excluded from the previous imaging [id number]. NECK MRA: Brachiocephalic artery: Visualized portion is widely patent, noting that its origin through proximal to mid portion is excluded from the imaging [id number]. Right common carotid artery: Widely patent. Right internal carotid artery: Mild focal areas of stenosis involve its origin and proximal portion. Widely patent more distally throughout the neck. Right external carotid artery: Widely patent. Left common carotid artery: Origin and most proximal portion are excluded from the imaging [id number]. Otherwise, widely patent. Left internal carotid artery: Widely patent throughout the neck. Left external carotid artery: Widely patent. Right subclavian artery: Mild focal stenosis at its origin. Otherwise, widely patent. Left subclavian artery: Mild focal stenosis at its origin. Otherwise, widely patent. Right vertebral artery: Mild to moderate focal stenosis at its origin. Otherwise, widely patent throughout the neck. Dominant. Left vertebral artery: Widely patent throughout its length. BRAIN MRA: The major intracranial arteries are patent, without evidence of proximal embolic occlusion or hemodynamically significant stenosis. No aneurysm is identified in the imaged intracranial compartment. Impression: 1. No evidence of acute intracranial pathology or mass. 2. Stable localized chronic infarcts centered in the right anterior cingulate gyrus, right posterolateral temporal lobe, and right inferomedial occipital lobe. Additional tiny chronic focal infarct involving the right inferomedial parietal cortex. 3. Stable chronic lacunar infarcts along the superoposterior aspect of the right putamen and in the left anterior putamen. 4. Stable bilateral cerebral volume loss remains between moderate and moderate to severe, with persistent accompanying bilateral hippocampal volume loss. 5. Mild to moderate chronic microangiopathic change. 6. Mild to moderate focal stenosis at the right vertebral artery origin. 7. No evidence of neurovascular occlusion or additional sites of hemodynamically significant stenosis in the neck, noting that the brachiocephalic origin through proximal to mid portion and proximal left common carotid artery are excluded from the imaging [id number]. 8. Mild focal stenosis involving the origins of the right common carotid and bilateral subclavian arteries, as well as the right proximal internal carotid artery. Addendum: As described in the body of this report, a 1.0 cm enhancing lesion in the right posterior parotid gland is suspicious for a primary parotid neoplasm. Otolaryngology consultation should be considered. Primary Interpreting Staff: DILCIA ELIZABETH MD, RADIOLOGIST (Flour Blender Helper) /[facility] DILCIA ELIZABETH [facility] Mar 15, 2024 11:[address] (AP) ABDOMEN/PE LVIS (P): JUSTYNA WEEKS [id number] -1940 M Exm Date: MAR 15, 2024@11:21 Req Phys: EMIL MEDINA Pat Loc: [facility] (Req' Img Loc: CT IMAGING Service: [place] [address] (Case [id number] COMPLETE) CT (AP) ABDOMEN/PELVIS W CONTRAST(CT Detailed) CPT:85353 Contrast Media : Non-ionic Iodinated Reason for Study: Chronic diarrhea, ? hx of chronic pancreatitis Clinical History: Per Joint Commission Standards, by signing this diagnostic imaging request the ordering provider confirms they have considered patients age and recent imaging history. Defer to radiologist for final CT protocol. Contact number for responsible provider who can be reached for any questions or notifications of critical findings: [phone] Spear LAST 3: Collection DT Specimen Test Name Result Units Ref Range 10/24/2023 12:46 PLASMA CREATININE 1.1 mg/dL 0.7 - 1.2 10/24/2023 12:46 PLASMA .CREAT EGFR(CKD-E 67 Ref: >=60 Allergies: ([place] only) Patient has answered NKA Report Status: Verified Date Reported: MAR 15, 2024 Date Verified: MAR 15, 2024 Flour Blender Helper E-Sig:/ES/SHELLEY BURR DO Report: CT abdomen and pelvis with contrast History: Chronic diarrhea. Questionable history of chronic pancreatitis. Comparison: None Technique: CT of the abdomen and pelvis following contrast administration. IV contrast: 100 mL Omnipaque 350. Multiplanar reconstructions were obtained and reviewed. Dose: Total DLP: 483 mGy*cm Findings: Lung bases: The heart is enlarged. Mild lower lobe bronchiectasis. Mild bibasilar scarring versus atelectasis. Calcified granuloma in the left lower lobe. Liver: Nodular surface contour consistent with cirrhosis. No focal lesion. Gallbladder and bile ducts: Normal. Pancreas: There is pancreatic atrophy without mass, calcifications or ductal dilatation. Spleen: Normal. Adrenal glands: Normal. Kidneys and ureters: Small cyst in the lower pole of the right kidney. A few subcentimeter low-density renal lesions are too small to characterize. 8 mm calculus in the lower left kidney. Symmetric nephrograms. No hydronephrosis. Lymph nodes: No lymphadenopathy. GI tract: Small hiatal hernia. Mild distention of the stomach with fluid. Small duodenal diverticulum. No small bowel obstruction. The appendix is normal. There is colonic diverticulosis. Major vasculature: There is atherosclerotic calcification. Focal saccular ectasia of the infrarenal abdominal aorta measuring 2.6 cm. Peritoneal cavity: No ascites or free intraperitoneal gas. Pelvic organs: Prostate is enlarged. 5 mm high attenuation lesion along the left aspect of the urinary bladder (axial image 352, coronal image 66). This may represent enhancement or focal faint calcification. Bones: There are degenerative changes in the spine. No acute osseous abnormality. No suspicious bone lesion. Impression: 1. Cirrhotic appearance of the liver. 2. 5 mm high attenuation lesion along the left aspect of the urinary bladder. This may represent an enhancing lesion versus focal faint calcification. Recommend further evaluation. 3. Prostatomegaly. 4. Colonic diverticulosis. 5. Nonobstructing left nephrolithiasis. Primary Interpreting Staff: SHELLEY BURR DO, RADIOLOGIST (Flour Blender Helper) /[facility] SHELLEY BURR [facility] Encounter Notes: All associated encounter notes This section contains the clinical notes associated to the Encounter. Date/Time Encounter Note(s) Provider Source Mar 04, 2024 09:46 AM NO SHOW NOTE: LOCAL TITLE: NO SHOW/CANCELLATION CLINIC NOTE STANDARD TITLE: NO SHOW NOTE DATE OF NOTE: MAR 04, 2024@09:46 ENTRY DATE: MAR 04, 2024@09:47:08 AUTHOR: JENNIFER COSTA EXP COSIGNER: URGENCY: STATUS: COMPLETED not seen for scheduled appointment due to: No Show did not present for neuropsychology evaluation. Called his daughter Mary Alice (primary phone number) and reached her. She was unaware of today's appointment, stating that she typically relies on the appointment reminder letters from the [place] and had not received one for today's appointment. She denied concerns about the 's mental health and stated that she is focused on supporting his medical care. She reported increased agitation in the last few days and was encouraged to contact his prescribing providers should this persist, as she finds his evening medications very helpful for managing agitation. [place] is not known to this advertising writer so risk assesment is limited to chart review. [place]'s risk of suicide/homicide appears low. Risk factors: age, gender, race. Protective factors: denied SI/HI in October, supported living environment, no history of MH conditions. Appointment Rescheduled: No She is interested in rescheduling. Alerted her to the availability of neuropsychological consultation at the [facility] which she would like to do. Will alert neuropsychology MSAs to request to reschedule via telehealth to the [facility]. Please review patient chart and medications for renewal needs (if appropriate). /tierra/ JENNIFER COSTA, PHD, LP, ABPP STAFF NEUROPSYCHOLIGST Signed: 03/04/2024 09:52 JENNIFER COSTA [facility]
--- OUTSIDE RECORDS SUMMARY | 2024-10-22 17:00 | XMS_ITS | Continuity of Care Document ---
Author Name [facility] Organization [facility] Care Team Providers Care Study Coordinator Name Role Phone [facility] Unavailable Unavailable Problems Combined list of problems from Department of Defense and Veterans Affairs facilities. It does not include entries that were removed or entered in error. Problem Status Onset Date Problem Type Date of Resolution Comments Source Atrial fibrillation (SNOMED CT [id number]) Active Condition [facility] Chronic atrial fibrillation Active Condition [facility] Dementia Active Condition 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 [facility] Moderate mitral valve regurgitation Active Condition [facility] Parkinson's disease Active Condition [facility] Tremor Active Condition [facility] Diagnosis: ICD-10-CM F03.B18 Unsp dementia, moderate, with other behavioral disturb Active Diagnosis [facility] Diagnosis: ICD-10-CM Z71.89 Other specified counseling Active Diagnosis [facility] Diagnosis: ICD-10-CM Z51.5 Encounter for palliative care Active Diagnosis [facility] Diagnosis: ICD-10-CM G20.C Parkinsonism, unspecified Active Diagnosis [facility] Diagnosis: ICD-10-CM R19.7 Diarrhea, unspecified Active Diagnosis 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 [facility] Diagnosis: ICD-10-CM L82.1 Other seborrheic keratosis Active Diagnosis [facility] Diagnosis: ICD-10-CM Z65.9 Problem related to unspecified psychosocial circumstances Active Diagnosis [facility] Diagnosis: ICD-10-CM D22.5 Melanocytic nevi of trunk Active Diagnosis [facility] Diagnosis: ICD-10-CM Z79.01 director long term care (current) use of anticoagulants Active Diagnosis [facility] Re[facility] Diagnosis: ICD-10-CM I48.91 Unspecified atrial fibrillation Active Diagnosis [facility] Diagnosis: ICD-10-CM I34.0 Nonrheumatic mitral (valve) insufficiency Active Diagnosis [facility] Diagnosis: ICD-10-CM Z13.6 Encounter for screening for cardiovascular disorders Active Diagnosis [facility] Diagnosis: ICD-10-CM F32.A Depression, unspecified Active Diagnosis [facility] Diagnosis: ICD-10-CM F03.918 Unsp dementia, unsp severity, with other behavioral disturb [facility] Medications Combined list of outpatient medications from Department of Defense and Veterans Affairs facilities.Medications provided include 1) outpatient medications from the last 15 months, and 2) patient-reported medications. Medication Details Route Status Patient Instructions Prescription Expires Prescription Number Last Dispense Date Ordering Provider Order Date Order Qty Source AMYLASE 30,000UNIT/ LIPASE 6,000UNIT/P ROTEASE 19,000UNIT CAP,EC TAKE 1 CAPSULE BY MOUTH BEFORE MEALS AND SNACKS FOR DIGESTIO N ORAL DISCONT INUED 12/27/2024 [id number] Calos MARQUIS NNE 2023 300 [facility] AMYLASE 30,000UNIT/ LIPASE 6,000UNIT/P ROTEASE 19,000UNIT CAP,EC TAKE 1 CAPSULE BY MOUTH BEFORE MEALS FOR DIGESTIO N BEFORE MEALS AND SNACKS ORAL DISCONT INUED 11/23/2023 [id number] SOLOMON WOLF 2023 100 [facility] AMYLASE 30,000UNIT/ LIPASE 6,000UNIT/P ROTEASE 19,000UNIT CAP,EC TAKE 1 CAPSULE BY MOUTH BEFORE MEALS FOR DIGESTIO N BEFORE MEALS AND SNACKS ORAL 12/23/2023 [id number] 4 Calos MARQUIS NNE 2023 100 [facility] APIXABAN 5MG TAB TAKE ONE TABLET BY MOUTH EVERY 12 HOURS TO PREVENT STROKES ORAL DISCONT INUED 12/01/2024 [id number] 4 UMESH LOPEZ 2023 180 [facility] APIXABAN 5MG TAB TAKE ONE TABLET BY MOUTH EVERY 12 HOURS TO PREVENT STROKES ORAL DISCONT INUED (EDIT) 11/13/2024 [id number] 4 Destiny FULLER Y 2023 60 [facility] APIXABAN 5MG TAB TAKE ONE TABLET BY MOUTH EVERY 12 HOURS TO PREVENT STROKES ORAL DISCONT INUED (EDIT) 12/10/2023 [id number] 4 BENITEZ,Calos NNE 2023 60 [facility] BREXPIPRAZO LE 2MG TAB TAKE ONE TABLET BY MOUTH AT BEDTIME FOR AGITATIO N AND MOOD ORAL DISCONT INUED BY PROVIDE R 12/14/2024 [id number] 4 BENITEZ,A NNE 2023 90 [facility] BREXPIPRAZO LE 2MG TAB TAKE ONE TABLET BY MOUTH AT BEDTIME FOR AGITATIO N AND MOOD ORAL DISCONT INUED 12/31/2023 [id number] 4 BENIETZ,Calos NNE 2023 30 [facility] BREXPIPRAZO LE 2MG TAB TAKE ONE TABLET BY MOUTH AT BEDTIME FOR AGITATIO N AND MOOD ORAL DISCONT INUED 12/23/2023 [id number] 4 BENITEZ,Calos NNE 2023 30 [facility] BREXPIPRAZO LE 2MG TAB TAKE ONE TABLET BY MOUTH AT BEDTIME FOR AGITATIO N AND MOOD ORAL DISCONT INUED 11/23/2023 [id number] 4 CLAUDE ACOSTA E 2023 30 [facility] CARBIDOPA 25MG/LEVODO PA 100MG TAB TAKE 1 TABLET BY MOUTH EVERY DAY FOR 3 DAYS, THEN TAKE 1 TABLET TWICE A DAY FOR 3 DAYS, THEN TAKE 1 TABLET THREE TIMES A DAY FOR PARKINSO N DISEASE DO NOT TAKE WITH FOOD ORAL DISCONT INUED BY PROVIDE R 02/26/2025 [id number] 4 Magaly ORTIZ E 2023 90 [facility] DABIGATRAN ETEXILATE 150MG CAP,ORAL,UD TAKE ONE CAPSULE BY MOUTH EVERY 12 HOURS ATRIAL FIBRILLA TION ORAL DISCONT INUED BY PROVIDE R 11/23/2023 [id number] SOLOMON WOLF A 2023 60 [place] [facility] DONEPEZIL HCL 10MG TAB TAKE ONE TABLET BY MOUTH EVERY DAY FOR DEMENTIA ORAL DISCONT INUED 12/14/2024 [id number] 4 BENITEZ,A NNE 2023 90 [facility] DONEPEZIL HCL 10MG TAB TAKE ONE TABLET BY MOUTH EVERY DAY FOR DEMENTIA ORAL DISCONT INUED 12/23/2023 [id number] 4 BENITEZ,A NNE 2023 30 [facility] DONEPEZIL HCL 10MG TAB TAKE ONE TABLET BY MOUTH EVERY DAY FOR DEMENTIA ORAL DISCONT INUED 11/23/2023 [id number] 4 CLAUDE ACOSTA E 2023 30 [facility] ENALAPRIL MALEATE 10MG TAB TAKE ONE TABLET BY MOUTH EVERY DAY FOR BLOOD PRESSURE ORAL DISCONT INUED BY PROVIDE R 11/23/2023 [id number] 4 SOLOMON WOLF A 2023 30 [place] [facility] FLUTICASONE PROPIONATE 50MCG/SPRAY SOLN,NASAL, 16GM SPRAY 1 SPRAY IN EACH NOSTRIL EVERY DAY FOR CONGESTI ON NASAL DISCONT INUED 01/19/2025 [id number] 4 BENITEZ,A NNE 2023 1 [facility] FUROSEMIDE 40MG TAB TAKE ONE TABLET BY MOUTH EVERY DAY NEEDED FOR EXCESS FLUID ORAL DISCONT INUED 05/30/2024 [id number] 4 BENITEZ,A NNE 2023 30 [facility] FUROSEMIDE 40MG TAB TAKE ONE TABLET BY MOUTH EVERY MORNING FOR EXCESS FLUID ORAL DISCONT INUED 12/27/2024 [id number] 4 BENITEZ,A NNE 2023 90 [facility] FUROSEMIDE 40MG TAB TAKE ONE TABLET BY MOUTH EVERY DAY NEEDED FOR EXCESS FLUID ORAL DISCONT INUED 11/23/2023 [id number] SOLOMON WOLF A 2023 30 [facility] FUROSEMIDE 40MG TAB TAKE ONE TABLET BY MOUTH EVERY DAY NEEDED FOR EXCESS FLUID ORAL 12/23/2023 [id number] 4 Calos MARQUIS NNE 2023 30 [facility] GABAPENTIN 100MG CAP TAKE ONE CAPSULE BY MOUTH TWO TIMES A DAY NEEDED FOR ANXIETY ORAL DISCONT INUED BY PROVIDE R 05/01/2025 [id number] 4 Calos MARQUIS NNE 2023 60 [facility] LISINOPRIL 10MG TAB TAKE ONE TABLET BY MOUTH EVERY DAY FOR BLOOD PRESSURE ORAL DISCONT INUED BY PROVIDE R 11/09/2024 [id number] 4 DAVID BROOKS 2023 90 [place] [facility] LOPERAMIDE HCL 2MG CAP TAKE ONE CAPSULE BY MOUTH TWICE A DAY FOR DIARRHEA ORAL DISCONT INUED 05/16/2025 [id number] 4 Destiny NICHOLAS 2023 180 [facility] LOPERAMIDE [facility]CL 2MG CAP TAKE ONE CAPSULE BY MOUTH TWICE A DAY NEEDED FOR DIARRHEA ORAL 05/14/2024 [id number] 4 NEPTALI MEDINA 2023 180 [place] [facility] MELATONIN 3MG CAP/TAB TAKE 2 TABLETS BY MOUTH AT BEDTIME FOR SLEEP - TAKE 2 HOURS PRIOR TO SLEEP ORAL DISCONT INUED 12/27/2024 [id number] 4 Calos MARQUIS NNE 2023 120 [facility] MELATONIN 3MG CAP/TAB TAKE 2 TABLETS BY MOUTH AT BEDTIME FOR SLEEP TAKE ABOUT TWO HOURS BEFORE BEDTIME ORAL DISCONT INUED 11/23/2023 [id number] 4 CLAUDE ACOSTA 2023 60 [place] [facility] MELATONIN 3MG CAP/TAB TAKE 2 TABLETS BY MOUTH AT BEDTIME FOR SLEEP TAKE ABOUT TWO HOURS BEFORE BEDTIME ORAL 12/23/2023 [id number] 4 Calos MARQUIS NNE 2023 60 [facility] MISCELLANEO US USE BY NOT APPLIC ABLE ACTIVE SANCHEZ,TATYANA IN D 2023 [facility] PSYLLIUM PWDR,ORAL TAKE 2 TEASPOON SFUL BY MOUTH TWICE A DAY FOR REGULAR BOWEL MOVEMENT S ORAL DISCONT INUED 05/16/2025 [id number] 4 Destiny NICHOLAS A 2023 680 [facility] PSYLLIUM PWDR,ORAL TAKE 2 TEASPOON SFUL BY MOUTH TWICE A DAY FOR REGULAR BOWEL MOVEMENT S ORAL DISCONT INUED 02/14/2025 [id number] 4 NEPTALI MEDINAAR 2023 390 [facility] QUETIAPINE FUMARATE 25MG TAB TAKE ONE TABLET BY MOUTH TWICE A DAY NEEDED AND TAKE ONE TABLET AT BEDTIME FOR AGITATIO N (IF TOO SEDATING , CAN CHANGE TO HALF-TAB LETS INSTEAD) ORAL DISCONT INUED 06/14/2024 [id number] 4 CECE MORGAN 2023 90 [facility] SIMPLYTHICK GEL,ORAL,MO D THICK,12GM USE 1 PACKET BY MOUTH FIVE TIMES A DAY TO THICKEN LIQUID ADD 1 PACKET PER 4 OUNCES (1/2 CUP) OF LIQUID. STIR FOR 20 SECONDS. ORAL DISCONT INUED 12/26/2024 [id number] 4 BENITEZ,A NNE 2023 200 [facility] SPIRONOLACT ONE 25MG TAB TAKE ONE TABLET BY MOUTH EVERY DAY FOR BLOOD PRESSURE ORAL DISCONT INUED 12/27/2024 [id number] 4 BENITEZ,A NNE 2023 90 [facility] SPIRONOLACT ONE 25MG TAB TAKE ONE TABLET BY MOUTH EVERY DAY FOR BLOOD PRESSURE OR HEART FAILURE ORAL DISCONT INUED (EDIT) 12/31/2023 [id number] 4 BENITEZ,A NNE 2023 30 [facility] SPIRONOLACT ONE 25MG TAB TAKE ONE TABLET BY MOUTH EVERY DAY FOR BLOOD PRESSURE OR HEART FAILURE ORAL DISCONT INUED 12/23/2023 [id number] 4 BENITEZ,A NNE 2023 30 [facility] SPIRONOLACT ONE 25MG TAB TAKE ONE TABLET BY MOUTH EVERY DAY FOR BP OR HEART FAILURE ORAL DISCONT INUED 11/23/2023 [id number] 4 SOLOMON WOLF OLIVIA A 2023 30 [facility] VORTIOXETIN E 10MG TAB TAKE ONE TABLET BY MOUTH EVERY DAY FOR MOOD ORAL DISCONT INUED 12/14/2024 [id number] 4 BENITEZ,A NNE 2023 90 [facility] VORTIOXETIN E 10MG TAB TAKE ONE TABLET BY MOUTH EVERY DAY FOR MOOD ORAL DISCONT INUED 12/23/2023 [id number] 4 BENITEZ,A NNE 2023 30 [facility] VORTIOXETIN E 10MG TAB TAKE ONE TABLET BY MOUTH EVERY DAY FOR MOOD ORAL DISCONT INUED 11/23/2023 [id number] 4 CLAUDE ACOSTA E 2023 30 [facility] Immunizations Combined list of available immunizations from the Department of Defense and Veterans Affairs facilities. Immunization Series Date Given Administered By Site Reaction Lot Number CVX Code Drug Bacon Skin Lifter Status Comments Source PNEUMOCOCCAL CONJUGATE PCV20, POLYSACCHARID E [id number] CONJUGATE, ADJUVANT, PF 2023 LOVELY DOMINIQUE LEFT DELTO ID [id number] 216 complet ed [facility] ZOSTER RECOMBINANT 1 2023 LOVELY DOMINIQUE RIGHT DELTO ID [id number] 187 complet ed @@ ENTER DILUENT LOT# HERE [facility] COVID-19 (PFIZER), MRNA, LNP-S, PF, MAKEDA-SUCROSE, 30 MCG/0.3 ML (AGES 12+ YEARS) 2023 RON HINTON LEFT DELTO ID [id number] 309 complet ed [facility] INFLUENZA, HIGH-DOSE, TRIVALENT, PF 2023 RON HINT[place] RIGHT DELTO ID [id number] 135 complet ed [facility] Results Combined list of recent chemistry, hematology and other laboratory results from Department of Defense and Veterans Affairs, ranging from 15 months to all on record, depending upon the facility. Order Name Results Value Reference Range Date Interpretation Specimen Comments Source CBC LEUKOCYTES [#/VOLUME] IN BLOOD BY AUTOMATED COUNT 7.0 4.0 - 11.0 05/15 Specimen Type: BLOOD No comment entered. Ordering Provider: PASQUALE MEDINA Report Released Date/Time: Mar 18, 2024 06:14 PM Reporting Lab: [facility] [address] Performing Lab: [facility] [address] [facility] CBC ERYTHROCYT ES [#/VOLUME] IN BLOOD BY AUTOMATED COUNT 4.34 4.60 - 6.20 05/15 L Specimen Type: BLOOD No comment entered. Ordering Provider: PASQUALE MEDINA Report Released Date/Time: Mar 18, 2024 06:14 PM Reporting Lab: [facility] [address] Performing Lab: [facility] [address] [facility] CBC HEMOGLOBIN [MASS/VOLU ME] IN BLOOD 14.0 g/dL 13.5 - 17.9 05/15 Specimen Type: BLOOD No comment entered. Ordering Provider: PASQUALE MEDINA Report Released Date/Time: Mar 18, 2024 06:14 PM Reporting Lab: [facility] [address] Performing Lab: [facility] [address] [facility] CBC HEMATOCRIT [VOLUME FRACTION] OF BLOOD BY AUTOMATED COUNT 41.6 41.0 - 54.0 05/15 Specimen Type: BLOOD No comment entered. Ordering Provider: PASQUALE MEDINA Report Released Date/Time: Mar 18, 2024 06:14 PM Reporting Lab: [facility] [address] Performing Lab: [facility] [address] [facility] CBC MCV [ENTITIC VOLUME] BY AUTOMATED COUNT 95.9 fL 80.0 - 100.0 05/15 Specimen Type: BLOOD No comment entered. Ordering Provider: PASQUALE MEDINA Report Released Date/Time: Mar 18, 2024 06:14 PM Reporting Lab: [facility] [address] Performing Lab: [facility] [address] [place] [facility] CBC MCH [ENTITIC MASS] BY AUTOMATED COUNT 32.3 pg 27.0 - 33.0 05/15 Specimen Type: BLOOD No comment entered. Ordering Provider: PASQUALE MEDINA Report Released Date/Time: Mar 18, 2024 06:14 PM Reporting Lab: [facility] [address] Performing Lab: [facility] [address] [place] [facility] CBC MCHC [MASS/VOLU ME] BY AUTOMATED COUNT 33.7 g/dL 32.0 - 37.5 05/15 Specimen Type: BLOOD No comment entered. Ordering Provider: PASQUALE MEDINA Report Released Date/Time: Mar 18, 2024 06:14 PM Reporting Lab: [facility] [address] Performing Lab: [facility] [address] [facility] CBC PLATELETS [#/VOLUME] IN BLOOD BY AUTOMATED COUNT 158 150 - 400 05/15 Specimen Type: BLOOD No comment entered. Ordering Provider: PASQUALE MEDINA Report Released Date/Time: Mar 18, 2024 06:14 PM Reporting Lab: [facility] [address] Performing Lab: [facility] [address] [place] [facility] CBC PLATELET MEAN VOLUME [ENTITIC VOLUME] IN BLOOD BY AUTOMATED COUNT 8.5 fL 9.1 - 13.0 05/15 L Specimen Type: BLOOD No comment entered. Ordering Provider: PASQUALE MEDINA Report Released Date/Time: Mar 18, 2024 06:14 PM Reporting Lab: [facility] [address] Performing Lab: [facility] [address] [facility] CBC ERYTHROCYT E DISTRIBUTI ON WIDTH [RATIO] BY AUTOMATED COUNT 12.4 11.5 - 14.5 05/15 Specimen Type: BLOOD No comment entered. Ordering Provider: PASQUALE MEDINA Report Released Date/Time: Mar 18, 2024 06:14 PM Reporting Lab: [facility] [address] Performing Lab: [facility] [address] [facility] PROTHROM BIN TIME/INR INR IN PLATELET POOR PLASMA BY COAGULATIO N ASSAY 1.6 0.8 - 1.1 05/15 H Specimen Type: PLASMA No comment entered. Ordering Provider: PASQUALE MEDINA Report Released Date/Time: Mar 18, 2024 06:14 PM Reporting Lab: [facility] [address] Performing Lab: [facility] [address] [facility] [facility] PROTHROM BIN TIME/INR PROTHROMBI N TIME (PT) 18.0 s 9.4 - 12.5 05/15 H Specimen Type: PLASMA No comment entered. Ordering Provider: PASQUALE MEDINA Report Released Date/Time: Mar 18, 2024 06:14 PM Reporting Lab: [facility] [address] Performing Lab: [facility] [address] [place] [facility] COMPREHE NSIVE METABOLI C PANEL+MG CREATININE [MASS/VOLU ME] IN SERUM OR PLASMA 0.9 mg/dL 0.7 - 1.2 05/15 Specimen Type: PLASMA No comment entered. Ordering Provider: PASQUALE MEDINA Report Released Date/Time: Mar 18, 2024 06:14 PM Reporting Lab: [facility] [address] Performing Lab: [facility] [address] [place] [facility] COMPREHE NSIVE METABOLI C PANEL+MG UREA NITROGEN [MASS/VOLU ME] IN SERUM OR PLASMA 11 mg/dL 8 - 26 05/15 Specimen Type: PLASMA No comment entered. Ordering Provider: PASQUALE MEDINA Report Released Date/Time: Mar 18, 2024 06:14 PM Reporting Lab: [facility] [address] Performing Lab: [facility] [address] [place] [facility] COMPREHE NSIVE METABOLI C PANEL+MG GLUCOSE [MASS/VOLU ME] IN SERUM OR PLASMA 105 mg/dL 70 - 100 05/15 H Specimen Type: PLASMA No comment entered. Ordering Provider: PASQUALE MEDINA Report Released Date/Time: Mar 18, 2024 06:14 PM Reporting Lab: [facility] [address] Performing Lab: [facility] [address] [place] [facility] COMPREHE NSIVE METABOLI C PANEL+MG SODIUM [MOLES/VOL UME] IN SERUM OR PLASMA 137 mmol/L 136 - 145 05/15 Specimen Type: PLASMA No comment entered. Ordering Provider: PASQUALE MEDINA Report Released Date/Time: Mar 18, 2024 06:14 PM Reporting Lab: [facility] [address] Performing Lab: [facility] [address] [place] [facility] COMPREHE NSIVE METABOLI C PANEL+MG POTASSIUM [MOLES/VOL UME] IN SERUM OR PLASMA 4.1 mmol/L 3.5 - 5.1 05/15 Specimen Type: PLASMA No comment entered. Ordering Provider: PASQUALE MEDINA Report Released Date/Time: Mar 18, 2024 06:14 PM Reporting Lab: [facility] [address] Performing Lab: [facility] [address] [place] [facility] COMPREHE NSIVE METABOLI C PANEL+MG CHLORIDE [MOLES/VOL UME] IN SERUM OR PLASMA 105 mmol/L 98 - 107 05/15 Specimen Type: PLASMA No comment entered. Ordering Provider: PASQUALE MEDINA Report Released Date/Time: Mar 18, 2024 06:14 PM Reporting Lab: [facility] [address] Performing Lab: [facility] [address] [place] [facility] COMPREHE NSIVE METABOLI C PANEL+MG CARBON DIOXIDE, TOTAL [MOLES/VOL UME] IN SERUM OR PLASMA 26 mmol/L 22 - 29 05/15 Specimen Type: PLASMA No comment entered. Ordering Provider: PASQUALE MEDINA Report Released Date/Time: Mar 18, 2024 06:14 PM Reporting Lab: [facility] [address] Performing Lab: [facility] [address] [place] [facility] COMPREHE NSIVE METABOLI C PANEL+MG CALCIUM [MASS/VOLU ME] IN SERUM OR PLASMA 9.0 mg/dL 8.4 - 10.2 05/15 Specimen Type: PLASMA No comment entered. Ordering Provider: PASQUALE MEDINA Report Released Date/Time: Mar 18, 2024 06:14 PM Reporting Lab: [facility] [address] Performing Lab: [facility] [address] [place] [facility] COMPREHE NSIVE METABOLI C PANEL+MG PROTEIN [MASS/VOLU ME] IN SERUM OR PLASMA 7.6 g/dL 6.4 - 8.3 05/15 Specimen Type: PLASMA No comment entered. Ordering Provider: PASQUALE MEDINA Report Released Date/Time: Mar 18, 2024 06:14 PM Reporting Lab: [facility] [address] Performing Lab: [facility] [address] [place] [facility] COMPREHE NSIVE METABOLI C PANEL+MG ALBUMIN [MASS/VOLU ME] IN SERUM OR PLASMA 3.7 g/dL 3.5 - 5.2 05/15 Specimen Type: PLASMA No comment entered. Ordering Provider: PASQUALE MEDINA Report Released Date/Time: Mar 18, 2024 06:14 PM Reporting Lab: [facility] [address] Performing Lab: [facility] [address] [place] [facility] COMPREHE NSIVE METABOLI C PANEL+MG BILIRUBIN. TOTAL [MASS/VOLU ME] IN SERUM OR PLASMA 0.6 mg/dL 0.2 - 1.2 05/15 Specimen Type: PLASMA No comment entered. Ordering Provider: PASQUALE MEDINA Report Released Date/Time: Mar 18, 2024 06:14 PM Reporting Lab: [facility] [address] Performing Lab: [facility] [address] [place] [facility] COMPREHE NSIVE METABOLI C PANEL+MG MAGNESIUM [MASS/VOLU ME] IN SERUM OR PLASMA 2.1 mg/dL 1.6 - 2.6 05/15 Specimen Type: PLASMA No comment entered. Ordering Provider: PASQUALE MEDINA Report Released Date/Time: Mar 18, 2024 06:14 PM Reporting Lab: [facility] [address] Performing Lab: [facility] [address] [place] [facility] COMPREHE NSIVE METABOLI C PANEL+MG ANION GAP IN SERUM OR PLASMA 6 mmol/L 5 - 15 05/15 Specimen Type: PLASMA No comment entered. Ordering Provider: PASQUALE MEDINA Report Released Date/Time: Mar 18, 2024 06:14 PM Reporting Lab: [facility] [address] Performing Lab: [facility] [address] [place] [facility] COMPREHE NSIVE METABOLI C PANEL+MG ALKALINE PHOSPHATAS E [ENZYMATIC ACTIVITY/V OLUME] IN SERUM OR PLASMA 81 U/L 40 - 150 05/15 Specimen Type: PLASMA No comment entered. Ordering Provider: PASQUALE MEDINA Report Released Date/Time: Mar 18, 2024 06:14 PM Reporting Lab: [facility] [address] Performing Lab: [facility] [address] [place] [facility] COMPREHE NSIVE METABOLI C PANEL+MG ALANINE AMINOTRANS FERASE [ENZYMATIC ACTIVITY/V OLUME] IN SERUM OR PLASMA 20 U/L <44 - 44 05/15 Specimen Type: PLASMA No comment entered. Ordering Provider: PASQUALE MEDINA Report Released Date/Time: Mar 18, 2024 06:14 PM Reporting Lab: [facility] [address] Performing Lab: [facility] [address] [place] [facility] COMPREHE NSIVE METABOLI C PANEL+MG ASPARTATE AMINOTRANS FERASE [ENZYMATIC ACTIVITY/V OLUME] IN SERUM OR PLASMA 28 U/L 11 - 34 05/15 Specimen Type: PLASMA No comment entered. Ordering Provider: PASQUALE MEDINA Report Released Date/Time: Mar 18, 2024 06:14 PM Reporting Lab: [facility] [address] Performing Lab: [facility] [address] [place] [facility] COMPREHE NSIVE METABOLI C PANEL+MG GLOMERULAR FILTRATION RATE/1.73 SQ M.PREDICTE D [VOLUME RATE/AREA] IN SERUM, PLASMA OR BLOOD BY CREATININE -BASED FORMULA (CKD-EPI 2020) 85 60 05/15 Specimen Type: PLASMA No comment entered. Ordering Provider: PASQUALE MEDINA Report Released Date/Time: Mar 18, 2024 06:14 PM Reporting Lab: [facility] [address] Performing Lab: [facility] [address] [place] [facility] AFP (MODIFIE D) ALPHA-1-FE TOPROTEIN [MASS/VOLU ME] IN SERUM OR PLASMA 2.2 ng/mL <8.8 - 8.8 05/15 Specimen Type: SERUM No comment entered. Ordering Provider: PASQUALE MEDINA Report Released Date/Time: Mar 18, 2024 06:14 PM Reporting Lab: [facility] [address] Performing Lab: [facility] [address] [place] [facility] C DIFF PANEL CLOSTRIDIO IDES DIFFICILE TOXIN B TCDB GENE [PRESENCE] IN STOOL BY AJ WITH PROBE DETECTION NEGATIVE 05/08 Specimen Type: FECES No comment entered. Ordering Provider: PASQUALE MEDINA AR Report Released Date/Time: Feb 14, 2024 04:28 PM Reporting Lab: [facility] [address] Performing Lab: [facility] [address] [place] [facility] ELASTASE -1,PANC STL ELASTASE.P ANCREATIC [PRESENCE] IN STOOL canc 05/08 Specimen Type: FECES Comment: Specimen unsatisfact ory for analysis-PL EASE RESUBMIT sent in mail - unable to processes Cancellatio n reported to: Steve Medina MD @1204 05/08/2024 by [facility] Ordering Provider: PASQUALE MEDINA AR Report Released Date/Time: Feb 14, 2024 04:28 PM Reporting Lab: [facility] [address] Performing Lab: [facility] [address] [place] [facility] CALPROTE CTIN,STO OL CALPROTECT IN [MASS/MASS ] IN STOOL canc 05/08 Specimen Type: FECES Comment: Specimen unsatisfact ory for analysis-PL EASE RESUBMIT sent in mail - unable to process Cancellatio n reported to: Carito MITCHELL @1207 05/08/2024 by [facility] Ordering Provider: PASQUALE MEDINA Report Released Date/Time: Feb 14, 2024 04:29 PM Reporting Lab: [facility] [id number] Performing Lab: [facility] [id number] [place] [facility] BASIC METABOLI C PANEL+MG CREATININE [MASS/VOLU ME] IN SERUM OR PLASMA 0.9 mg/dL 0.7 - 1.2 04/30 Specimen Type: PLASMA No comment entered. Ordering Provider: SOLITARIO MARQUIS Report Released Date/Time: Apr 30, 2024 11:15 AM Reporting Lab: [facility] [address] Performing Lab: [facility] [address] [facility] BASIC METABOLI C PANEL+MG UREA NITROGEN [MASS/VOLU ME] IN SERUM OR PLASMA 15 mg/dL 8 - 26 04/30 Specimen Type: PLASMA No comment entered. Ordering Provider: SOLITARIO MARQUIS Report Released Date/Time: Apr 30, 2024 11:15 AM Reporting Lab: [facility] [address] Performing Lab: [facility] [address] [facility] BASIC METABOLI C PANEL+MG GLUCOSE [MASS/VOLU ME] IN SERUM OR PLASMA 95 mg/dL 70 - 100 04/30 Specimen Type: PLASMA No comment entered. Ordering Provider: SOLITARIO MARQUIS Report Released Date/Time: Apr 30, 2024 11:15 AM Reporting Lab: [facility] [address] Performing Lab: [facility] [address] [facility] BASIC METABOLI C PANEL+MG SODIUM [MOLES/VOL UME] IN SERUM OR PLASMA 138 mmol/L 136 - 145 04/30 Specimen Type: PLASMA No comment entered. Ordering Provider: SOLITARIO MARQUIS Report Released Date/Time: Apr 30, 2024 11:15 AM Reporting Lab: [facility] [address] Performing Lab: [facility] [address] [facility] BASIC METABOLI C PANEL+MG POTASSIUM [MOLES/VOL UME] IN SERUM OR PLASMA 4.0 mmol/L 3.5 - 5.1 04/30 Specimen Type: PLASMA No comment entered. Ordering Provider: SOLITARIO MARQUIS Report Released Date/Time: Apr 30, 2024 11:15 AM Reporting Lab: [facility] [address] Performing Lab: [facility] [address] [facility] BASIC METABOLI C PANEL+MG CHLORIDE [MOLES/VOL UME] IN SERUM OR PLASMA 104 mmol/L 98 - 107 04/30 Specimen Type: PLASMA No comment entered. Ordering Provider: SOLITARIO MARQUIS Report Released Date/Time: Apr 30, 2024 11:15 AM Reporting Lab: [facility] [address] Performing Lab: [facility] [address] [facility] BASIC METABOLI C PANEL+MG CARBON DIOXIDE, TOTAL [MOLES/VOL UME] IN SERUM OR PLASMA 27 mmol/L 22 - 29 04/30 Specimen Type: PLASMA No comment entered. Ordering Provider: SOLITARIO MARQUIS Report Released Date/Time: Apr 30, 2024 11:15 AM Reporting Lab: [facility] [address] Performing Lab: [facility] [address] [facility] BASIC METABOLI C PANEL+MG CALCIUM [MASS/VOLU ME] IN SERUM OR PLASMA 9.1 mg/dL 8.4 - 10.2 04/30 Specimen Type: PLASMA No comment entered. Ordering Provider: SOLITARIO MARQUIS Report Released Date/Time: Apr 30, 2024 11:15 AM Reporting Lab: [facility] [address] Performing Lab: [facility] [address] [facility] BASIC METABOLI C PANEL+MG MAGNESIUM [MASS/VOLU ME] IN SERUM OR PLASMA 2.0 mg/dL 1.6 - 2.6 04/30 Specimen Type: PLASMA No comment entered. Ordering Provider: SOLITARIO MARQUIS Report Released Date/Time: Apr 30, 2024 11:15 AM Reporting Lab: [facility] [address] Performing Lab: [facility] [address] [facility] BASIC METABOLI C PANEL+MG ANION GAP IN SERUM OR PLASMA 7 mmol/L 5 - 15 04/30 Specimen Type: PLASMA No comment entered. Ordering Provider: SOLITARIO MARQUIS Report Released Date/Time: Apr 30, 2024 11:15 AM Reporting Lab: [facility] [address] Performing Lab: [facility] [address] [facility] BASIC METABOLI C PANEL+MG GLOMERULAR FILTRATION RATE/1.73 SQ M.PREDICTE D [VOLUME RATE/AREA] IN SERUM, PLASMA OR BLOOD BY CREATININE -BASED FORMULA (CKD-EPI 2020) 85 60 04/30 Specimen Type: PLASMA No comment entered. Ordering Provider: SOLITARIO MARQUIS Report Released Date/Time: Apr 30, 2024 11:15 AM Reporting Lab: [facility] [address] Performing Lab: [facility] [address] [facility] URINALYS IS COLOR OF URINE YELLOW 04/11 Specimen Type: URINE No comment entered. Ordering Provider: SENTHIL CALDWELL Report Released Date/Time: Apr 11, 2024 08:41 AM Reporting Lab: [facility] [address] Performing Lab: [facility] [address] [place] [facility] URINALYS IS SPECIFIC GRAVITY OF URINE 1.027 1.003 - 1.035 04/11 Specimen Type: URINE No comment entered. Ordering Provider: SENTHIL CALDWELL Report Released Date/Time: Apr 11, 2024 08:41 AM Reporting Lab: [facility] [address] Performing Lab: [facility] [address] [place] [facility] URINALYS IS BILIRUBIN. TOTAL [PRESENCE] IN URINE BY TEST STRIP NEGATIVE 04/11 Specimen Type: URINE No comment entered. Ordering Provider: SENTHIL ACLDWELL Report Released Date/Time: Apr 11, 2024 08:41 AM Reporting Lab: [facility] [address] Performing Lab: [facility] [address] [place] [facility] URINALYS IS KETONES [MASS/VOLU ME] IN URINE BY TEST STRIP NEGATIVE 04/11 Specimen Type: URINE No comment entered. Ordering Provider: SENTHIL CALDWELL Report Released Date/Time: Apr 11, 2024 08:41 AM Reporting Lab: [facility] [address] Performing Lab: [place] [address] [place] [facility] URINALYS IS GLUCOSE [MASS/VOLU ME] IN URINE BY TEST STRIP NEGATIVE mg/dL 04/11 Specimen Type: URINE No comment entered. Ordering Provider: SENTHIL CALDWELL Report Released Date/Time: Apr 11, 2024 08:41 AM Reporting Lab: [facility] [address] Performing Lab: [facility] [address] [place] [facility] URINALYS IS PROTEIN [MASS/VOLU ME] IN URINE BY TEST STRIP 20 mg/dL 04/11 Specimen Type: URINE No comment entered. Ordering Provider: SENTHIL CALDWELL Report Released Date/Time: Apr 11, 2024 08:41 AM Reporting Lab: [facility] [address] Performing Lab: [facility] [address] [place] [facility] URINALYS IS PH OF URINE BY TEST STRIP 6.0 5.0 - 8.0 04/11 Specimen Type: URINE No comment entered. Ordering Provider: SENTHIL CALDWELL Report Released Date/Time: Apr 11, 2024 08:41 AM Reporting Lab: [facility] [address] Performing Lab: [facility] [address] [place] [facility] URINALYS IS LEUKOCYTES [#/AREA] IN URINE SEDIMENT BY MICROSCOPY HIGH POWER FIELD <1/[HPF] 0 - 7 04/11 Specimen Type: URINE No comment entered. Ordering Provider: SENTHIL CALDWELL Report Released Date/Time: Apr 11, 2024 08:41 AM Reporting Lab: [facility] [address] Performing Lab: [facility] [address] [place] [facility] URINALYS IS BACTERIA [PRESENCE] IN URINE SEDIMENT BY LIGHT MICROSCOPY NONE SEEN 04/11 Specimen Type: URINE No comment entered. Ordering Provider: SENTHIL CALDEWLL Report Released Date/Time: Apr 11, 2024 08:41 AM Reporting Lab: [facility] [address] Performing Lab: [facility] [address] [place] [facility] URINALYS IS ERYTHROCYT ES [#/AREA] IN URINE SEDIMENT BY MICROSCOPY HIGH POWER FIELD 1 /[HPF] 0 - 3 04/11 Specimen Type: URINE No comment entered. Ordering Provider: SENTHIL CALDWELL Report Released Date/Time: Apr 11, 2024 08:41 AM Reporting Lab: [facility] [address] Performing Lab: [facility] [address] [place] [facility] URINALYS IS APPEARANCE OF URINE CLEAR 04/11 Specimen Type: URINE No comment entered. Ordering Provider: SENTHIL CALDWELL Report Released Date/Time: Apr 11, 2024 08:41 AM Reporting Lab: [facility] [address] Performing Lab: [facility] [address] [place] [facility] URINALYS IS EPITHELIAL CELLS.SQUA MOUS [#/AREA] IN URINE SEDIMENT BY MICROSCOPY HIGH POWER FIELD NONE SEEN/[HP F] 04/11 Specimen Type: URINE No comment entered. Ordering Provider: SENTHIL CALDWELL Report Released Date/Time: Apr 11, 2024 08:41 AM Reporting Lab: [facility] [address] Performing Lab: [facility] [address] [place] [facility] URINALYS IS HEMOGLOBIN [PRESENCE] IN URINE BY TEST STRIP NEGATIVE 04/11 Specimen Type: URINE No comment entered. Ordering Provider: SENTHIL CALDWELL Report Released Date/Time: Apr 11, 2024 08:41 AM Reporting Lab: [facility] [address] Performing Lab: [facility] [address] [facility] URINALYS IS NITRITE [PRESENCE] IN URINE BY TEST STRIP NEGATIVE 04/11 Specimen Type: URINE No comment entered. Ordering Provider: SENTHIL CALDWELL Report Released Date/Time: Apr 11, 2024 08:41 AM Reporting Lab: [facility] [address] Performing Lab: [facility] [address] [facility] URINALYS IS LEUKOCYTE ESTERASE [PRESENCE] IN URINE BY TEST STRIP NEGATIVE 04/11 Specimen Type: URINE No comment entered. Ordering Provider: SENTHIL CALDWELL Report Released Date/Time: Apr 11, 2024 08:41 AM Reporting Lab: [facility] [address] Performing Lab: [facility] [address] [facility] POC CREATINI NE CREATININE [MASS/VOLU ME] IN BLOOD 1.1 mg/dL 0.6 - 1.3 03/15 Specimen Type: BLOOD No comment entered. Ordering Provider: SOLITARIO MARQUIS Report Released Date/Time: Mar 15, 2024 11:44 AM Reporting Lab: [facility] [address] Performing Lab: [facility] [address] [facility] Vital Signs Combined list of inpatient and outpatient Vital Signs from Department of Defense and Veterans Affairs, ranging from 12 months to all on record, depending upon the facility. Vital Sign Value Date Comments Source SYSTOLIC BLOOD PRESSURE 143 05/15/2024 13:09:59 [facility] DIASTOLIC BLOOD PRESSURE 94 05/15/2024 13:09:59 [facility] PULSE OXIMETRY 98 05/15/2024 13:09:59 [place] [facility] WEIGHT 195.4 05/15/2024 13:09:59 [facility] BMI 25 kg/m2 05/15/2024 13:09:59 [facility] PAIN 0 05/15/2024 13:09:59 [facility] TEMPERATURE 98.2 05/15/2024 13:09:59 [facility] PULSE 94 05/15/2024 13:09:59 [facility] RESPIRATION 16 05/15/2024 13:09:59 [facility] SYSTOLIC BLOOD PRESSURE 136 05/09/2024 11:00:18 [facility] DIASTOLIC BLOOD PRESSURE 84 05/09/2024 11:00:18 [facility] PULSE OXIMETRY 98 05/09/2024 11:00:18 [facility] PAIN 0 05/09/2024 11:00:18 [facility] TEMPERATURE 97.1 05/09/2024 11:00:18 [facility] PULSE 87 05/09/2024 11:00:18 [facility] RESPIRATION 20 05/09/2024 11:00:18 [facility] SYSTOLIC BLOOD PRESSURE 98 04/30/2024 10:20:49 [facility] DIASTOLIC BLOOD PRESSURE 65 04/30/2024 10:20:49 [facility] PULSE OXIMETRY 98 04/30/2024 10:20:49 [facility] WEIGHT 197.7 04/30/2024 10:20:49 [facility] BMI 25 kg/m2 04/30/2024 10:20:49 [facility] PAIN 0 04/30/2024 10:20:49 [facility] TEMPERATURE 96.9 04/30/2024 10:20:49 [facility] PULSE 82 04/30/2024 10:20:49 [facility] RESPIRATION 16 04/30/2024 10:20:49 [facility] SYSTOLIC BLOOD PRESSURE 136 02/26/2024 13:49:39 [facility] DIASTOLIC BLOOD PRESSURE 87 02/26/2024 13:49:39 [facility] PULSE OXIMETRY 91 02/26/2024 13:49:39 [facility] PAIN 0 02/26/2024 13:49:39 [facility] PULSE 70 02/26/2024 13:49:39 [facility] RESPIRATION 18 02/26/2024 13:49:39 [facility] SYSTOLIC BLOOD PRESSURE 109 01/19/2024 11:12:07 [facility] DIASTOLIC BLOOD PRESSURE 73 01/19/2024 11:12:07 [facility] PULSE OXIMETRY 95 01/19/2024 11:12:07 [facility] WEIGHT 198.1 01/19/2024 11:12:07 [facility] BMI 25 kg/m2 01/19/2024 11:12:07 [facility] PAIN 0 01/19/2024 11:12:07 [facility] TEMPERATURE 97.9 01/19/2024 11:12:07 [facility] PULSE 94 01/19/2024 11:12:07 [facility] RESPIRATION 16 01/19/2024 11:12:07 [facility] Encounters Combined list of: 1) Encounters from Department of [facility] facilities going backup to the last 18 months, not all [place] inpatient encounters are included; 2) Encounters from the Department of [facility] [place] facilities going backup to 280 months. Location Location Details Encounter Type Encounter Number Reason For Visit Attending Provider ADM Date DC Date Status Disposition Source [facility] Outpatient Encounter [id number] 10/23 [facility] EMERGENCY DEPT VISIT MOD MDM [id number] Diagnos is: ICD-10- CM I48.91 Unspeci fied atrial fibrill ation SHELLEY WOLF Y A 10/23 [facility] OFFICE O/P EST HI 40 MIN [id number] Diagnos is: ICD-10- CM F03.B18 Unsp dementi a, moderat e, with other behavio ral disturb ROCIO ACOSTAEY E 10/23 [facility] Outpatient Encounter [id number] [place] 10/23 [facility] CRISIS INTERVEN SVC, 15 MIN [id number] Diagnos is: ICD-10- CM F03.918 Unsp dementi a, unsp severit y, with other behavio ral disturb MICKY,RU TH E 10/23 [place] [facility] QNHP OL DIG ASSMT&MGMT 5-10 [id number] Diagnos is: ICD-10- CM F32.A Depress ion, unspeci fied Marcelino CARRANZA ANE A 10/23 [place] [facility] Outpatient Encounter [id number] [place] J 10/23 [facility] Outpatient Encounter [id number] 10/24 [facility] ELECTROCAR DIOGRAM REPORT [id number] Diagnos is: ICD-10- CM Z13.6 Encount er for screeni ng for cardiov ascular disorde Carrillo Araiza O 11/08 [facility] OFFICE O/P NEW ME 60 MIN [id number] Diagnos is: ICD-10- CM I34.0 Nonrheu matic mitral (valve) insuffi Shorty Chen 11/08 [facility] Outpatient Encounter [id number] 11/08 [place] [facility] TTE W/DOPPLER COMPLETE [id number] Diagnos is: ICD-10- CM I48.91 Unspeci fied atrial fibrill ation KERVINKRISTYN FERNANDEZ NZI 11/08 [facility] OFFICE O/P NEW [place] 60 MIN [id number] Diagnos is: ICD-10- CM F03.B18 Unsp dementi a, moderat e, with other behavio ral disturb BENITEZ,AN NE 11/09 [facility] Outpatient Encounter [id number] 11/09 [place] [facility] [place] [facility] Outpatient Encounter [id number] 11/09 [place] [facility] [place] [facility] Outpatient Encounter [id number] DI LIGHTDELMI Aissatou 11/12 [facility] [place] [facility] MTMS BY PHARM ADDL 15 MIN [id number] Diagnos is: ICD-10- CM Z79.01 director long term care (curren t) use of anticoa gulants RICHARD FULLER Y 11/12 [facility] [place] [facility] Outpatient Encounter [id number] 11/12 [place] [facility] [place] [facility] Outpatient Encounter [id number] 11/12 [facility] [place] [facility] Outpatient Encounter [id number] 11/13 [facility] [place] [facility] Outpatient Encounter [id number] 11/14 [place] [facility] [place] [facility] Outpatient Encounter [id number] 11/20 [facility] [place] [facility] Outpatient Encounter [id number] 11/21 [place] [facility] [place] [facility] Outpatient Encounter [id number] 11/22 [place] [facility] [place] [facility] Outpatient Encounter [id number] 11/27 [place] [facility] [place] [facility] Outpatient Encounter [id number] 11/28 [place] [facility] [place] [facility] Outpatient Encounter [id number] Calos LOPEZ 11/30 [facility] [place] [facility] Outpatient Encounter [id number] 12/06 [place] [facility] [place] [facility] En[facility] [id number] 12/06 [place] [facility] [place] [facility] En[facility] [id number] 12/12 [place] [facility] [place] [facility] En[facility] [id number] 12/14 [place] [facility] [place] [facility] [id number] 12/14 [place] [facility] [place] [facility] En[place] [id number] 12/14 [place] [facility] [place] [facility] En[facility] [id number] 12/14 [place] [facility] [place] [facility] En[place] [id number] CLAUDE ORONA 12/20 [place] [facility] [place] [facility] [facility] [id number] 12/27 [place] [facility] [place] [facility] En[place] [id number] 01/08 [place] [facility] [place] [facility] En[facility] [id number] 01/09 [place] [facility] [place] [facility] En[facility] [id number] 01/09 [place] [facility] [place] [facility] En[place] [id number] 01/17 [place] [facility] CB OFFICE O/P EST HI 40 MIN [id number] Diagnos is: ICD-10- CM D22.5 Melanoc ytic nevi of trunk BENITEZKENNY NE 01/18 [facility] [place] [facility] Outpatient Encounter [id number] KENNY MARQUIS NE 01/18 [facility] Outpatient Encounter [id number] 01/18 [facility] Outpatient Encounter [id number] 01/28 [facility] HC PRO PHONE CALL 5-10 MIN [id number] Diagnos is: ICD-10- CM Z65.9 Problem related to unspeci fied psychos ocial circums kelle CORTEZ,ME DELORIS E 01/29 [facility] Outpatient Encounter [id number] 02/12 [facility] OFFICE O/P NEW HI 60 MIN [id number] Diagnos is: ICD-10- CM F03.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 Unsp dementi a, moderat e, with other behavio ral disturb KRISSY MAYES 02/13 [facility] Outpatient Encounter [id number] DELMI SINHA 02/21 [facility] Outpatient Encounter [id number] 02/22 [facility] OFF/OP CONSLTJ NEW/EST HI 55 [id number] Diagnos is: ICD-10- CM G20.C Vera onism, unspeci fied EXCONDE,RU PERT E 02/25 [facility] Outpatient Encounter [id number] 03/04 [facility] OFFICE O/P EST LOW 20 MIN [id number] Diagnos is: ICD-10- CM L82.1 Other seborrh eic keratos is SKIBNESS,L ORIE A 03/05 [facility] Outpatient Encounter [id number] 03/21 [place] [facility] [place] [facility] Outpatient Encounter [id number] 03/25 [place] [facility] [place] [facility] Outpatient Encounter [id number] 03/26 [place] [facility] FEE [id number] Diagnos is: ICD-10- CM F03.B18 Unsp dementi a, moderat e, with other behavio ral disturb Afia SILVAN R 03/27 [facility] [place] [facility] NRPSYC TST EVAL PHYS/QHP [place] [id number] Diagnos is: ICD-10- CM F03.B18 Unsp dementi a, moderat e, with other behavio ral disturb Afia SILVA AROANGELLAN R 03/27 [place] [facility] [place] [facility] Outpatient Encounter [id number] 03/27 [place] [facility] [place] [facility] Outpatient Encounter [id number] 04/01 [place] [facility] [place] [facility] Outpatient Encounter [id number] DELMI SINHA 04/03 [place] [facility] [place] [facility] Outpatient Encounter [id number] RON CERDA 04/04 [place] [facility] [place] [facility] Outpatient Encounter [id number] 04/04 [place] [facility] [place] [facility] OFFICE O/P NEW MOD 45 MIN [id number] Diagnos is: ICD-10- CM D49.4 Neoplas m of unspeci fied behavio r of bladder LAVERS,SOLITARIO 04/11 [place] [facility] [place] [facility] Outpatient Encounter [id number] 04/30 [place] [facility] OFFICE O/P [place] HI 40 MIN [id number] Diagnos is: ICD-10- CM F03.B18 Unsp dementi a, moderat e, with other behavio ral disturb BENITEZ,AN NE 04/30 [facility] Outpatient Encounter [id number] 05/02 [place] [facility] OFFICE O/P EST MOD 30 MIN [id number] Diagnos is: ICD-10- CM R93.41 Abn radlgc find on dx imaging renal pelv, ureter, or blddr AMANDA CRISTINA PP 05/09 [facility] Outpatient Encounter [id number] 05/09 [facility] Outpatient Encounter [id number] ANDRE WILD 05/10 [facility] OFFICE O/P EST MOD 30 MIN [id number] Diagnos is: ICD-10- CM R19.7 Diarrhe a, unspeci fiTATE Plunkett NNIFER W 05/15 [facility] OFF/OP CONSLTJ NEW/EST HI 55 [id number] Diagnos is: ICD-10- CM G20.C Vera onism, unspeci fied YASMINE MORGAN 05/15 [facility] OFF/OP EST MAY X REQ PHY/QHP [id number] Diagnos is: ICD-10- CM F03.B18 Unsp dementi a, moderat e, with other behavio ral disturb GLOEGE,JENNIFER MAMI S 05/21 [facility] HC PRO PHONE CALL 5-10 MIN [id number] Diagnos is: ICD-10- CM F03.B18 Unsp dementi a, moderat e, with other behavio ral disturb JENNIFER LLOYD S 05/21 [facility] [place] [facility] PRO PHONE CALL 11-20 MIN [id number] Diagnos is: ICD-10- CM Z51.5 Encount er for palliat slime care RACQUEL,SARITHA ANY T 05/23 [facility] [place] [facility] Outpatient Encounter [id number] 05/24 [facility] [place] [facility] Outpatient Encounter [id number] 06/18 [place] [place] [facility] Outpatient Encounter [id number] 07/02 [place] [place] [facility] Outpatient Encounter [id number] 07/08 [place] [place] [facility] Outpatient Encounter [id number] 07/08 [place] [place] [facility] CASE MANAGEMENT [id number] Diagnos is: ICD-10- CM Z71.89 Other specifi ed admitting counselor RAMBO [facility] [place] [facility] RN CARE EA 15 MIN HH/HOSPICE [id number] Diagnos is: ICD-10- CM F03.B18 Unsp dementi a, moderat e, with other behavio ral disturb JG ,SCOTT J 08/20 [place] [facility] [place] [facility] CASE MANAGEMENT [id number] Diagnos is: ICD-10- CM Z71.89 Other specifi ed admitting counselor RAMBO Flowers 09[facility]20 [facility] [place] [facility] Outpatient Encounter [id number] 09/30 [place] [facility] [place] [facility] Outpatient Encounter [id number] MARIA E LEVI 10/10 [facility] [place] [facility] RN CARE EA 15 MIN HH/HOSPICE [id number] Diagnos is: ICD-10- CM F03.B18 Unsp dementi a, moderat e, with other behavio ral disturb SCOTT GREGORIO 10/15 [facility] Social History Combined list of available smoking, tobacco, and other social history from [facility] and [facility] facilities. Social History Type Response Date Comment Sourc e Tobacco smoking status [facility] FORMER [facility]23 [facility] of [facility] OR MORE [facility]10[facility]2023 [facility] Plan of Care List of future care activities from [facility] facilities. Additional future care activities may be listed in the Assessment and Plan section. Date/Time Care Activity Care Activity Detail Facili ty 11/06/2024 AMBULATORY - MEDICINE AMBULATORY - MEDICI [facility] Advance Directives List of completed, amended, or rescinded Advance Directives on record at [facility] facilities. An actual copy of the Directive is not included. Date Advance Directive Provider Source 01/30/2024 ADVANCE DIRECTIVE JAYME CORTEZ [facility] 01/30/2024 ADVANCE DIRECTIVE DISCUSSION GILDARDO CORTEZ [facility] 01/29/2024 STATE-AUTHORIZED PORTABLE ORDERS Afia PINO [facility] 10/24/2023 RESCINDED ADVANCE DIRECTIVE JASON LOUIS [facility] 10/24/2023 ADVANCE DIRECTIVE DISCUSSION SUPA LOUIS [facility]
--- OUTSIDE RECORDS SUMMARY | 2024-10-22 17:00 | XMS_ITS | Encounter Summary ---
Author Name [facility] [place] [place] [facility] [place] Address [address] [place] [address], [place] [address] Care Team Providers Care Guard Captain Name Role Phone RANDA MARQUIS Primary Care [...] PART A Nov 05, 2006 PART A [id number] [phone] Calos WEEKS RTMagaly PATIENT Selected Encounter This section includes the information on record at [place] for the Encounter. Date/Time Encounter Type Encounter Description Reason Provider Source Sep 20, 2024 11:55 AM CASE MANAGEMENT [facility] FOLLOW-UP ICD-10-CM Z71.89 Other specified counseling SHANNON SALINAS Encounter Template Text not used by [place] Assessments - Encounter Diagnoses This section includes the primary and secondary diagnoses documented for the Encounter. Date/Time Primary/Secondary Diagnosis Diagnosis Name Provider Source Sep 24, 2024 12:01 PM PRIMARY Other specified counseling SHANNON SALINAS [facility] Plan of Treatment: Future Appointments (+ 6 months) and Future Tests (+/- 45 days) The Plan of Treatment section includes [facility] care activities for the [facility] [place] [facility] This section includes future appointments and future orders which are active, pending or scheduled. Future Appointments This section includes appointments that were scheduled to occur 6 months from the date of the Encounter, up to a maximum of 20 appointments. The data comes from all [facility] facilities. Appointment Date/Time Appointment Type Appointme nt Facility Name Nov 06, 2024 02:30 PM AMBULATORY - MEDICINE [facility] Advance Directives: All historical and current Section Date Range: From patient's date of to the date document was created. This section includes ALL of a patient's completed or amended [place] Advance and Rescinded Directives. The entries below indicate that a directive exists for the patient, but an actual copy is not included with this document. The data comes from all [facility]. Date Advance Directives Provider Source Jan 30, 2024 ADVANCE DIRECTIVE JAYME CORTEZ [facility] Jan 30, 2024 ADVANCE DIRECTIVE DISCUSSION GILDARDO CORTEZ [facility] Jan 29, 2024 STATE-AUTHORIZED POR TABLE ORDERS SUE PINO [facility] Oct 24, 2023 RESCINDED ADVANCE DIRECTIVE JASON LOUIS [facility] Oct 24, 2023 ADVANCE DIRECTIVE DISCUSSION [facility]PA [facility] Encounter Notes: All associated encounter notes This section contains the clinical notes associated to the Encounter. Date/Time Encounter Note(s) Provider Source Sep 20, 2024 11:55 AM COMMUNITY INTERMEDIATE CARE NOTE: LOCAL TITLE: COMMUNITY INTERMEDIATE RESIDENT ASSESSMENT STANDARD TITLE: COMMUNITY INTERMEDIATE CARE NOTE DATE OF NOTE: SEP 20, 2024@11:55 ENTRY DATE: SEP 24, 2024@11:55:17 AUTHOR: SHANNON SALINAS EXP COSIGNER: URGENCY: STATUS: COMPLETED Community Longterm ([facility]) Resident Assessment GENERAL INFORMATION DS - Disabilities Eligibility: NSC VERIFIED Visit completed by: Geospatial Technician Date of visit: September 20, 2024 Community Longterm ([facility]) Name: [facility] Type of visit: On-site Information provided by: pen[facility]entiary staff Name/Title: SW Reason for placement: [facility] INFORMATION OBTAINED DURING VISIT WITH ASSESSMENT OF COGNITION, COMMUNICATION, MOOD AND BEHAVIOR was not available to assess cognition, communication, mood and behavior. Explanation: Dementia SUICIDE SCREEN Annual C-SSRS completed. SATISFACTION Unable to assess /Painter And Decorator satisfaction. Explanation: dementia [facility] staff provided a copy of the [place] reference sheet, containing contact information for [facility] staff and the [facility], to the /Painter And Decorator: N/A, annual requirement previously met [place] appears to be well adjusted to residing in this [facility]: Yes is offered daily activities: Yes [place] is offered spiritual services: Yes [facility] STAFF OBSERVATIONS Quality of sensory and environmental aesthetic is adequate: Yes Facility cleanliness is adequate: Yes Fluids available: Yes [place]'s appearance: appeared: Appropriately groomed penitentiary staff is courteous: Yes Total time spent for visit (in minutes) 2 min Total travel time 40 min ------ INFORMATION OBTAINED FROM [facility] MEDICAL RECORD REVIEW ------ Hospitalization since placement or last visit: No Emergency room visit since placement or last visit: No CLINICAL REVIEW Socialization Ability: Good Restraint free since placement or last visit: Yes Behavioral symptoms present: No FUNCTIONAL STATUS Activity of Daily Living (ADL) Loss of ADL function since placement or last visit: No Weights and vital signs recorded monthly, or as ordered: Yes Most recent weight taken by [facility] staff: Weight (lbs): 178 Date: September 22, 2024 Weight loss of 5% or greater in the last 3 months: No Diet: Regular Skin assessment completed at appropriate intervals: Yes Pressure injuries: None Specialized wound care: None Pain management is effective: Yes DOCUMENTATION OVERSIGHT Physician, Nursing, and Corn Cooker documentation completed at regular intervals in accordance with State regulations: Yes assessed by a provider at required intervals: Yes As needed (PRN) medication effectiveness is documented: Yes [facility] Plan of Care updated: Yes Date Plan of Care updated: September 12, 2024 Care plan reflects [place]'s individualized care needs and includes multidisciplinary participation: Yes LIFE-SUSTAINING TREATMENT [place]'s preferences for Life-Sustaining Treatment (LST) are documented and have been reviewed in the [facility] medical record: Yes, no further review indicated at this time. [place]'s Life-Sustaining Treatment (LST) progress note and orders are documented in the [place] medical record: No Explanation: NA [facility] documented code status SAFETY ------ has not fallen since placement or last visit. No medication errors since placement or last visit. attempted to elope from the facility: No Evidence of abuse/neglect either confirmed or under investigation: No Other adverse event(s) since placement or last visit: No LEVEL OF CARE MDS RUG or PDPM score is consistent with the [place]'s care needs. DISPOSITION [place] appears with low care needs where an alternative level of care may be appropriate: No Discharge plan in place: N/A, [place] is receiving termite technician care (LTC) PROGRAM CARE COORDINATION PLAN - [place] PLAN OF CARE: Continue to provide routine oversight of care at [facility] Total time spent for chart review (in minutes) 15 min /tierra/ PAPITO PENA MODEL BUILDER PAPITO Signed: 09/24/2024 12:01 SHANNON SALINAS [facility]
--- OUTSIDE RECORDS SUMMARY | 2024-10-22 17:00 | XMS_ITS | Encounter Summary ---
Author Name [facility] [place] Address [address], [place] [address] Care Team Providers Care Design Engineer Marine Equipment Name Role Phone RANDA MARQUIS Primary Care [...] PART A Nov 05, 2006 PART A [id number] [phone] Calos WEEKS RTMagaly PATIENT Selected Encounter This section includes the information on record at [place] for the Encounter. Date/Time Encounter Type Encounter Description Reason Pro vider Source Sep 30, 2024 11:07 AM Outpatient Encounter GENERAL INTERNAL MEDICINE [facility] Encounter Template Text not used by [place] Plan of Treatment: Future Appointments (+ 6 [...] 20 appointments. The data comes from all [place] treatment facilities. Appointment Date/Time Appointment Type Appointme nt Facility Name Nov 06, 2024 02:30 PM AMBULATORY - MEDICINE [facility] Advance Directives: All historical and current Section Date Range: From patient's date of to the date document was created. This section includes ALL of a patient's completed or amended [place] Advance and Rescinded Directives. The entries below indicate that a directive exists for the patient, but an actual copy is not included with this document. The data comes from all [facility]. Date Advance Directives Provider Source Jan 30, 2024 ADVANCE DIRECTIVE JAYME CORTEZ [facility] Jan 30, 2024 ADVANCE DIRECTIVE DISCUSSION GILDARDO CORTEZ [facility] Jan 29, 2024 STATE-AUTHORIZED POR TABLE ORDERS SUE PINO [facility] Oct 24, 2023 RESCINDED ADVANCE DIRECTIVE JASON [facility] Oct 24, 2023 ADVANCE DIRECTIVE DISCUSSION [facility] Encounter Notes: All associated encounter notes This section contains the clinical notes associated to the Encounter. Date/Time Encounter Note(s) Provider Source Sep 30, 2024 11:07 AM REPORT OF CONTACT: LOCAL TITLE: APPOINTMENT SCHEDULING NOTE STANDARD TITLE: REPORT OF CONTACT DATE OF NOTE: SEP 30, 2024@11:07 ENTRY DATE: SEP 30, 2024@11:07:15 AUTHOR: MARIE JEONG COSIGNER: URGENCY: STATUS: COMPLETED APPOINTMENT SCHEDULING NOTE Has ADDENDA Attempted to schedule Return to clinic (RTC) Contact attempt made to 1st attempt Telephone Left message on voice mail to call back to this number [phone] If [place] calls back, schedule appt for: 05/15/2024 13:19 New Order entered by LOVELY DOMINIQUE (ERIC) Order Text: Return to [facility] 3V IMMUNIZATIONS on or around ( Aug 12, 2024 ) for a total of 1 appointment(s) - Shingles 2nd Dose Nature of Order: POLICY Elec Signature: LOVELY DOMINIQUE (CUSTOMER SERVICER) on 05/15/2024 13:20 Ordered by: JUANIS NICHOLAS (FELLOW) Left message for Mariza (phone - [phone]) at facility. She was going to talk to the famiy. Stated transportation will need to be arranged if he agrees to the appointment. /tierra/ NELIA FARRELL [employer] News Video Editor Signed: 09/30/2024 11:15 10/11/2024 ADDENDUM STATUS: COMPLETED Mariza passed on the information to his hospice nurse who was supposed to call me regarding the immunization. She stated she'll talk to them again and if I don't hear back from them next week, I should call Mariza back. /tierra/ NELIA FARRELL [employer] News Video Editor Signed: 10/11/2024 14:37 NELIA JEONG [facility]
[2024-10-22] MEDS: QUETIAPINE 25 MG TABLET PO ×2 (17:54→22:09)
--- NOTE | 2024-10-22 20:48 | P.IMHP_ITS ---
Assessment and Plan Assessment and plan (1) Closed fracture of left hip: Status: Acute Assessment and Plan: - Dtr desires patient to have surgery to preserve quality of life. She revoked hospice prior to admission. She gave okay for IVF overnight before surgery. - ER doc told me that orthopedics is aware and is planning on doing surgery tomorrow morning. I will make him NPO after midnight and avoid pharmacologic prophylaxis of VTE. 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 with a component of vascular dementia Status: Chronic (5) Urinary incontinence: Status: Chronic Assessment and Plan: - use briefs, avoid brand as it will likely exacerbate agitation and is at risk of getting pulled out by patient (6) Full incontinence of feces: Status: Chronic Assessment and Plan: - use briefs (7) Chronic atrial fibrillation: Problem comment: - with rapid ventricular rate - Not anticoagulated due to hospice Status: Chronic Assessment and Plan: - this increases risk of stroke perioperatively - control HR to less than 100 to decrease perioperative risk of stroke and cardiac events Plan - High risk for cardiopulmonary events and stroke perioperatively. Daughter is accepting of these risks in order to preserve patient's quality of life. Total Time Spent Total Time Spent: Time spent: Today I spent 75 minutes seeing the patient, discussion over the phone with the daughter and her , discussing the patient with ER staff, reviewing Expanse and EPIC notes/diagnostics, and documenting my impressions and plan in the medical record. 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 These comorbidities specifically would increase the risk during treatment and potentially prolong treatment length. This patient will require hospital services as outlined in the assessment and plan in order to stabilize and be safely discharged to a lower level of care. Because of the risk and acuity as described above, this patient cannot be managed at a lower level of care. LENGTH OF STAY: 2 IP ? Anticipated LOS>2 midnights due to acuity of clinical presentation requiring inpatient level of care Hospitalist- H&P: HPI History of Present Illness Time Seen by Provider: 20:00 Date Seen: 10/22/24 Chief complaint: Hip injury Narrative: Freddie Angel is a 83 year old male who has been on hospice since May 2024 for a parotid mass that is suspicious for malignancy and also has advanced parkinsonism with dementia versus Lewy body dementia who fell at [facility] today and sustained a left hip fracture. His daughter, Nuzhat, is his POA. I spoke with her over the phone this evening. She tells me that he is usually awake about 12 hours out of each day and he walks about 9 of those 12 hours. She tells me that walking gives him comfort and she wants him to be able to walk again. She was told by [facility] that he was up walking today when he fell backwards. It is not clear why he fell. She called the hospice provider and asked for hospice to be revoked while he is in the hospital to get surgery on his hip. 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 She demonstrated understanding and is still eating toward him getting surgery as that would help preserve his quality of life. She wished for him to be DNR/DNI with the exception of intubation if needed for surgery. She wanted me to give him IV fluids if necessary during this hospitalization. Review of Systems Status of ROS: Reports: unobtainable due to medical condition [facility] Medical History (Updated 10/23/24 @ 00:50 by Lucrecia Atkinson MD) Parkinsonism ?G20.C - Parkinsonism, unspecified (ICD-10) Cerebrovascular disease ?I67.9 - Cerebrovascular disease, unspecified (ICD-10) Wandering ?R46.89 - Other symptoms and signs involving appearance and behavior (ICD-10) Essential hypertension ?I10 - Essential (primary) hypertension (ICD-10) Anxiety disorder ?F41.9 - Anxiety disorder, unspecified (ICD-10) Tremor ?R25.1 - Tremor, unspecified (ICD-10) Chronic atrial fibrillation ?I48.20 - Chronic atrial fibrillation, unspecified (ICD-10) Full incontinence of feces ?R15.9 - Full incontinence of feces (ICD-10) Rheumatic mitral insufficiency ?I05.1 - Rheumatic mitral insufficiency (ICD-10) Urinary incontinence ?R32 - Unspecified urinary incontinence (ICD-10) Dysphagia ?R13.10 - Dysphagia, unspecified (ICD-10) Parotid mass ?K11.8 - Other diseases of salivary glands (ICD-10) Dementia ?F03.90 - Unspecified dementia, unspecified severity, without behavioral disturbance, psychotic disturbance, mood disturbance, and anxiety (ICD-10) Social History (Updated 10/22/24 @ 21:02 by Lucrecia Atkinson MD) Narrative: Resident of [facility]. Was on hospice for parotid mass, suspicious for malignancy. Daughter, Nuzhat, , is POA. She confirmed patient is DNR/DNI, okay to give IVF during this hospital stay. What is your current living situation?: I presently have a place to live Problems where you live: unable to answer Problems where you live details: Pt from [address] [place] [address] In the past 12 months, utilities in danger of being shut off: unable to answer In past 12 months, lack of transportation kept you from medical appts, meetings, work, or getting things needed for daily living: unable to answer In the past 12 mos, have been you worried that your food would run out before you had money to buy more?: unable to answer In the past 12 mos, the food you bought just didn't last and you didn't have money to buy more?: unable to answer Smoking Status: Never smoker Do you use any of these nicotine containing products: None How often do you have a drink containing alcohol: never AUDIT-C Alcohol total score: 0 Non-prescribed substance use: denies use How often does anyone, including family, friends and others, physically hurt you : unable to answer How often does anyone, including family, friends and others, insult or talk down to you: unable to answer How often does anyone, including family, friends and others, threaten you with harm: unable to answer How often does anyone, including family, friends and others, scream or curse at you: unable to answer Meds Home Medications and Allergies Home Medications ?Medication ?Instructions ?Recorded ?Confirmed ?Type hyoscyamine sulfate 0.125 mg 0.125 mg PO TID PRN 10/22/24 10/22/24 History sublingual tablet lorazepam 0.5 mg tablet 0.5 mg PO Q4H PRN 10/22/24 10/22/24 History melatonin 3 mg tablet 6 mg PO HS PRN 10/22/24 10/22/24 History morphine concentrate 100 mg/5 mL 5 mg PO Q4H 10/22/24 10/22/24 History (20 mg/mL) oral solution quetiapine 25 mg tablet 25 mg PO QHS 10/22/24 10/22/24 History venlafaxine 75 mg tablet,extended 75 mg PO DAILY 10/22/24 10/22/24 History release 24 hr Allergies Allergy/AdvReac Type Severity Reaction Status Date / Time No Known Drug Allergies Allergy Verified 10/22/24 16:54 Exam Narrative: Exam Narrative: General: No acute distress. Sleeping with mouth agape, awakens to name, answers ?yes? or ?uh huh? to all questions, even ones that are not yes/no questions and to questions that should be no. HEENT: Normocephalic atraumatic, pupils equally round and reactive to light and accommodation. Oropharynx clear. Mucous membranes are moist. No cervical lymphadenopathy, thyromegaly or carotid bruits. No JVD. Cardiovascular: Irregularly irregular. No murmurs, gallops, or rubs. Chest: No increased work of breathing. Clear to auscultation bilaterally. No crackles or wheezes. Abdomen: Bowel sounds present. Soft, nondistended, nontender. No hepatosplenomegaly or masses. Extremities: Shortened left leg, no bruising at the hip, abrasion at the left knee. No edema, no cyanosis or clubbing. Skin: No jaundice, no pallor, no rashes. Const: Vital Signs, click to edit/add: Vital Signs - 24 hr 10/22/24 15:09 10/22/24 19:41 10/22/24 20:00 Temperature 97.8 F 99.1 F Pulse Rate [Pulse Oximeter] 89 86 Pulse Rate [Right Radial] 101 H Respiratory Rate 20 18 Blood Pressure [Le ft Arm] 129/109 H Blood Pressure [Ri ght Upper Arm] 144/92 H 131/94 H Pulse Oximetry 97 93 91 Oxygen Delivery Me thod Room Air Room Air Room Air 10/22/24 20:04 10/22/24 20:26 Temperature 99.1 F Pulse Rate [Pulse Oximeter] Pulse Rate [Right Radial] 101 H Respiratory Rate 18 18 Blood Pressure [Le ft Arm] 129/109 H Blood Pressure [Ri ght Upper Arm] Pulse Oximetry 91 91 Oxygen Delivery Me thod Room Air Room Air Hospitalist - H&P: Result Labs Labs: 10/22/2024 EKG: Atrial fibrillation with rapid ventricular response, 113 beats per minute, incomplete right bundle-branch block, cannot rule out anterior septal infarct, age undetermined. Ordering Physician: Hang Sebastian D.O. Date of Service: 10/22/24 Procedure(s): CT hip LT wo con Accession Number(s): [id number] cc: Hang Sebastian D.O.~ For Patients: As a result of the Cures Act, medical imaging exams and procedure reports are released immediately into your electronic medical record. You may view this report before your referring provider. If you have questions, please contact your health care provider. INDICATION: Fall. Pain. COMPARISON: Plain films same date. TECHNIQUE: Multidetector imaging bony pelvis without for 4 months and axial coronal and sagittal small field if performance. FINDINGS: Mildly impacted 4 5 mm ventral displaced and slightly ventrally angulated fractures through the mid cervical femoral neck. Osteopenia. Moderately severe osteoarthritic changes of the hip. No intra-articular extension of fracture. No significant joint effusion. Trigger hematoma or other fluid collection. Intact pelvis. Moderate os arthritis SI joints with gracile anterior bridging osteophytes on the left. Moderate os arthritis symphysis pubis. Moderate osteoarthritis right hip. Redundant colon. Moderate stool. Prominent diffuse atherosclerotic vascular calcifications. Mild prostatomegaly. And right inguinal hernia. The this appears indirect. IMPRESSION: Acute mildly impacted and slightly displaced transcervical fracture left femoral neck. Please note that all CT scans at this facility use dose modulation, iterative reconstruction, and/or weight-based dosing when appropriate to reduce radiation dose to as low as reasonably achievable. Dictated by Norbert Rm MD @ 10/22/2024 4:23:48 PM (Electronically Signed) Ordering Physician: Hang Sebastian D.O. Date of Service: 10/22/24 Procedure(s): CT cervical spine wo con Accession Number(s): [id number] cc: Hang Sebastian D.O.~ For Patients: As a result of the Cures Act, medical imaging exams and procedure reports are released immediately into your electronic medical record. You may view this report before your referring provider. If you have questions, please contact your health care provider. INDICATION: Trauma. TECHNIQUE: CT cervical spine without contrast. COMPARISON: None. FINDINGS: No acute fracture. No listhesis. Bony mineralization is age appropriate. No prevertebral soft tissue hematoma or swelling. No soft tissue abnormality is identified. Multilevel spondylosis. No pathologically enlarged lymph nodes. Thyroid is normal. Emphysema in the apices. IMPRESSION: Unremarkable cervical spine CT. Please note that all CT scans at this facility use dose modulation, iterative reconstruction, and/or weight-based dosing when appropriate to reduce radiation dose to as low as reasonably achievable. Dictated by Devante Chamberlain MD @ 10/22/2024 4:46:59 PM (Electronically Signed) Ordering Physician: Hang Sebastian D.O. Date of Service: 10/22/24 Procedure(s): CT head/brain wo con Accession Number(s): [id number] cc: Hang Sebastian D.O.~ For Patients: As a result of the Cures Act, medical imaging exams and procedure reports are released immediately into your electronic medical record. You may view this report before your referring provider. If you have questions, please contact your health care provider. INDICATION: Trauma. TECHNIQUE: Head CT without contrast. COMPARISON: None. FINDINGS: Periventricular areas of low attenuation, likely due to chronic small vessel ischemic changes. Generalized volume loss. Atherosclerosis. Motion degrades fine detailed evaluation of levels. No intracranial hemorrhage. No discrete mass or mass effect. There is no midline shift. The basilar cisterns are patent. No hydrocephalus. The ayon-white matter interface is otherwise preserved. No acute osseous abnormality. No extracalvarial soft tissue abnormality. The mastoid air cells are clear. The paranasal sinuses are well-aerated. The visualized portions of the orbits and globes are unremarkable. IMPRESSION: No acute intracranial process per unenhanced head CT given the above constraints. Please note that all CT scans at this facility use dose modulation, iterative reconstruction, and/or weight-based dosing when appropriate to reduce radiation dose to as low as reasonably achievable. Dictated by Devante Chamberlain MD @ 10/22/2024 4:44:21 PM (Electronically Signed) Ordering Physician: Hang Sebastian D.O. Date of Service: 10/22/24 Procedure(s): XR chest 1V Accession Number(s): [id number] cc: Hang Sebastian D.O.~ For Patients: As a result of the Cures Act, medical imaging exams and procedure reports are released immediately into your electronic medical record. You may view this report before your referring provider. If you have questions, please contact your health care provider. INDICATION: Recent chest injury from fall TECHNIQUE: Chest radiograph 1 view COMPARISON: None FINDINGS: Mediastinum: The mediastinum is normal in appearance. The cardiac silhouette is moderately enlarged but may be accentuated by the portable technique. Lung: Minimal left basilar atelectasis is present. No sign of pleural effusion seen. No pneumothorax is identified. Bone and Soft tissue: Unremarkable for age. IMPRESSIONS: 1. The cardiac silhouette is moderately enlarged but may be accentuated by the portable technique. 2. If there is a high clinical index of suspicion for rib injury, dedicated rib series radiographs are recommended. Dictated by Bhargav Ramsey MD @ 10/22/2024 4:43:02 PM Dictated by: Bhargav Ramsey MD @ 10/22/2024 16:43:05 (Electronically Signed) Ordering Physician: Hang Sebastian D.O. Date of Service: 10/22/24 Procedure(s): XR hip LT min 2V Accession Number(s): [id number] cc: Hang Sebastian D.O.~ For Patients: As a result of the Cures Act, medical imaging exams and procedure reports are released immediately into your electronic medical record. You may view this report before your referring provider. If you have questions, please contact your health care provider. INDICATION: Left hip pain, fall, injury, hip fracture TECHNIQUE: Pelvis radiograph, Hip radiograph 3 views left COMPARISON: None FINDINGS: Bone: There is a nondisplaced impacted fracture present in the left femoral neck. A linear lucency is seen overlying the right posterior acetabular wall. Moderate diffuse osteopenia is present. Joint: Moderate bilateral hip osteoarthritis is present. The visualized sacroiliac joints are unremarkable in appearance. The pubic symphysis is normal in appearance. Soft tissue: Unremarkable. No radiopaque foreign bodies are seen. IMPRESSION: 1. There is a nondisplaced impacted fracture present in the left femoral neck. 2. A linear lucency is seen overlying the right posterior acetabular wall. This may be an os acetabulum but correlation with physical exam is recommended to exclude an acute fracture. Dictated by Bhargav Ramsey MD @ 10/22/2024 4:41:41 PM Dictated by: Bhargav Ramsey MD @ 10/22/2024 16:42:20 (Electronically Signed)
[2024-10-22] MEDS: SODIUM CHLORIDE 0.9 % (FLUSH) 10 ML SYRINGE 5 ML IVF (21:58)
[2024-10-22] MEDS: LACTATED RINGERS 1000 ML 1,000 ML 75 ML IV (21:58)
[2024-10-22] MEDS: ACETAMINOPHEN 325 MG TABLET 975 MG PO (22:10)
[2024-10-22] MEDS: HYDROmorphone 0.5 mg/0.5 ml inj IVP (22:19)
[2024-10-23] VITALS (25 sets, daily range): BP systolic 103–142; BP diastolic 55–106; PULSE 79–107; RESP 16–20; TEMP 36.3–37.2; O2SAT 77–98
[2024-10-23] MEDS: HYDROmorphone 0.5 mg/0.5 ml inj IVP ×6 (00:36→22:53)
[2024-10-23] MEDS: SODIUM CHLORIDE 0.9 % (FLUSH) 10 ML SYRINGE 5 ML IVF ×2 (00:37→02:38)
[2024-10-23] MEDS: METOPROLOL TARTRATE 1 MG/ML inj 5 MG IVP ×2 (01:14→21:09)
--- NOTE | 2024-10-23 03:27 | PC.NURSE ---
Pt came to floor this evening with a L Hip Fx. Pain controlled with meds, rest and ice. Pt from [facility] care. Demented and can't communicate effectively. Incontinent of urine. NPO since 0000. Possibly Surgery in the am. Hx of Afib.
--- NOTE | 2024-10-23 07:45 | PM.IMPN1 ---
Subjective Date Seen: 10/23/24 Interval history: Daily Progress Note - Hospital Medicine #: 2 CC: Hip fracture, history of parotid carcinoma, dementia. 24 HOUR UPDATE: Admitted last night for hip fracture care. Patient had a mechanical fall from standing height at his hospice facility, [facility]. Hospice has been revoked and he has been admitted under Medicare for operative repair of his left hip fracture. Notable Labs, Micro, Rads, Interventions: Vital signs are reviewed. Blood pressure 103/87. Pulse 98. Respirations 20. He is afebrile. He satting in the low 90s with supplemental oxygen at 2 L. Hemoglobin 13.3. White blood cell count is 9.5. Platelet count 131. INR 1.5 Chemistries are normal. Troponin is undetectable. Renal function is normal. Objective: Mumbles a few words, does not actively contribute to conversation. Mild agitation noted. Vitals: see above Lungs: Clear. Cardiac: S1S2. Left lower extremity is slightly shortened and internally rotated. Good pulses distally. Extremity is warm. Disposition/Potential discharge - He is on a bed hold from [facility] and will likely return there with postop cares. Today I spent 50minutes seeing the patient, reviewing Expanse and EPIC notes/diagnostics, discussing the care plan with our care time that includes social work, PT/OT, pharmacy, RT, residential and documenting my impressions and plan in the medical record. Exam Const: Vital Signs, click to edit/add: Vital Signs - 24 hr 10/22/24 15:09 10/22/24 19:41 10/22/24 20:00 Temperature 97.8 F 99.1 F Pulse Rate [Pulse Oximeter] 89 86 Pulse Rate [Right Radial] 101 H Respiratory Rate 20 18 Blood Pressure [Le ft Arm] 129/109 H Blood Pressure [Ri ght Upper Arm] 144/92 H 131/94 H Pulse Oximetry 97 93 91 Oxygen Delivery Me thod Room Air Room Air Room Air Oxygen Flow Rate 10/22/24 20:04 10/22/24 20:26 10/22/24 21:11 Temperature 99.1 F Pulse Rate [Pulse Oximeter] Pulse Rate [Right Radial] 101 H Respiratory Rate 18 18 Blood Pressure [Le ft Arm] 129/109 H Blood Pressure [Ri ght Upper Arm] Pulse Oximetry 91 91 91 Oxygen Delivery Me thod Room Air Room Air Oxygen Flow Rate 10/22/24 22:07 10/22/24 22:10 10/22/24 23:22 Temperature 99.1 F 99.1 F Pulse Rate [Pulse Oximeter] Pulse Rate [Right Radial] 110 H 110 H Respiratory Rate 18 18 Blood Pressure [Le ft Arm] 127/88 Blood Pressure [Ri ght Upper Arm] Pulse Oximetry 91 Oxygen Delivery Me thod Room Air Oxygen Flow Rate 10/22/24 23:22 10/23/24 01:24 10/23/24 01:24 Temperature Pulse Rate [Pulse Oximeter] Pulse Rate [Right Radial] Respiratory Rate 18 Blood Pressure [Le ft Arm] Blood Pressure [Ri ght Upper Arm] Pulse Oximetry 91 77 L 77 L Oxygen Delivery Me thod Room Air Nasal Cannula Nasal Cannula Oxygen Flow Rate 3 3 10/23/24 01:25 10/23/24 01:25 10/23/24 02:35 Temperature 98.3 F Pulse Rate [Pulse Oximeter] Pulse Rate [Right Radial] 90 Respiratory Rate 18 Blood Pressure [Le ft Arm] 106/85 Blood Pressure [Ri ght Upper Arm] Pulse Oximetry 97 97 92 Oxygen Delivery Me thod Nasal Cannula Nasal Cannula Nasal Cannula Oxygen Flow Rate 6 6 3 Assessment and Plan Assessment and plan (1) Closed fracture of left hip: Problem comment: DOI 10/22/24: Acute mildly impacted and slightly displaced transcervical fracture left femoral neck. ORIF planned for 10/23/24. High risk surgical candidate given known cardiac arrhythmia, no previous anticoagulation, comfort based care in the last 6 months. Status: Acute (2) Fall: Problem comment: DOI: 10/22/24. from standing; fell backward. CT head/spine = no acute injury. LEFT hip fracture. Status: Acute (3) Transition from hospice to acute care: Problem comment: For acute issues related to fall on 10/22/24; hip fracture/hospitalization/ORIF. 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
[2024-10-23 07:58] LABS: Basophils Absolute Auto 0.03 K/uL (0.00-0.30); Basophils Percent Auto 0.3 % (0.0-3.0); Eosinophils Absolute Auto 0.17 K/uL (0.00-0.50); Eosinophils Percent Auto 1.8 % (0.0-7.0); Hematocrit 40.8 % (37.0-53.0); Hemoglobin* 13.3 gm/dL (13.5-17.5); Immature Granulocytes Abs Auto 0.01 K/uL (0.00-0.30); Immature Granulocytes Pct Auto 0.1 %; Lymphocytes Percent Auto 12.3 % (20-44); Mean Corpuscular HGB Conc 33 gm/dL (32-36); Mean Corpuscular Hemoglobin 31 pg (26-34); Mean Corpuscular Volume 94 fL (80-100); Monocytes Percent Auto 7.1 % (0.0-11.0); Neutrophils Percent Auto 78.4 % (42.0-72.0); Platelet Count* 131 K/uL (140-440); RDW Coefficient of Variation % 12.7 % (11.5-15.5); Red Blood Count 4.32 m/uL (4.30-5.90); White Blood Count* 9.58 K/uL (4.50-11.00)
[2024-10-23 08:01] LABS: Slide Review Reflex No
[2024-10-23 08:14] LABS: Chloride* 101 mmol/L (96-114); Prothrombin Time 19.1 Seconds; Sodium* 136 mmol/L (135-149)
[2024-10-23 08:15] LABS: Potassium* 4.1 mmol/L (3.6-5.1)
[2024-10-23 08:17] LABS: Anion Gap 3 mEq/L (7-15); Blood Urea Nitrogen* 15 mg/dL (7-30); Carbon Dioxide* 32 mmol/L (20-32); Creatinine* 0.9 mg/dL (0.5-1.5); Est. Creatinine Clearance* 61.86; Estimated Glomerular Filt Rate 85 ml/min
[2024-10-23 08:18] LABS: Calcium* 8.7 mg/dL (8.4-10.6); Glucose* 106 mg/dL (60-115); Magnesium* 1.8 mg/dL (1.5-2.6)
[2024-10-23 08:30] LABS: Troponin I* < 0.01 ng/mL (0.01-0.04)
[2024-10-23] MEDS: LACTATED RINGERS 1000 ML 1,000 ML 75 ML IV (09:49)
--- NOTE | 2024-10-23 11:04 | REH.OT ---
PT/OT consult orders received. will wait until post surgery before evaluating.
--- NOTE | 2024-10-23 11:22 | PC.SOCIAL ---
Addendum entered by ANTWON BreenW 10/23/24 16:22: Discharge planning: glueline worker spoke to Shyla a nurse from [facility] out [facility] #[phone] and she shared that she was familiar with the pt's case and talked to pt's hospice nurse, Mauricio, and shared that because the pt's hospitalization is not related to his hospice diagnosis they are still able to keep the pt open to hospice and his current hospital stay should still be able to be billed to Medicare. Social work to follow-up as needed. Addendum entered by ANTWON BreenW 10/23/24 15:31: Discharge planning: glueline worker talked to Dulce Maria at [facility] out [facility] #[phone] to verify that the pt's daughter did indeed revoke hospice for the pt while he is in the hospital. Dulce Maria was going to reach out to the pt's nurse, Mauricio, to clarify/verify and will get back to this worker. Social work to follow-up as needed. Addendum entered by Maya Guevara, REGISTERED DIETETIC TECHNICIAN 10/23/24 12:43: Discharge planning: glueline worker met with pt's daughter, Nuzhat, and confirmed the pt is on a bed hold at [facility] and has [facility] out [facility]. Pt's daughter, Nuzhat, said that the pt's hospice nurse is named, Mauricio. glueline worker shared that this worker will assist with discharge planning for the pt. Social work to follow-up as needed. Original Note: Discharge planning: glueline worker spoke to GEETHA Cardenas at [facility] who shared that the pt is on a bed hold with them and has hospice through [facility]. glueline worker updated Charleen that the pt will be having surgery this afternoon at 1pm with Dr. Freeman. Social work to follow-up as needed.
--- NOTE | 2024-10-23 15:08 | P.ORCN_ITS ---
History of Present Illness HPI Date Seen: 10/23/24 Consult date: 10/23/24 Chief complaint: Left Hip injury Narrative: Freddie Angel is a pleasant 83-year-old male. He has been on hospice care since 05/2024 for parotid mass suspicious of malignancy as well as advanced dementia (whether parkinsonism versus Lewy body). He fell at his place of residence ([facility]) from a standing height landing on his left hip and sustained a left femoral neck fracture. He is unable bear weight. He presented [facility]. X-rays were obtained revealed a fracture. Orthopedics was consulted to assist with evaluation and management of this fracture. Further communication through his daughter, the IVA, reveals that the patient typically walks 9/12 hours and a given day. He is typically up walking/moving. She wished for him to be DNR/DNI with the exception of intubation if needed for surgery. [facility] Medical History Parkinsonism ?G20.C - Parkinsonism, unspecified (ICD-10) Cerebrovascular disease ?I67.9 - Cerebrovascular disease, unspecified (ICD-10) Wandering ?R46.89 - Other symptoms and signs involving appearance and behavior (ICD-10) Essential hypertension ?I10 - Essential (primary) hypertension (ICD-10) Anxiety disorder ?F41.9 - Anxiety disorder, unspecified (ICD-10) Tremor ?R25.1 - Tremor, unspecified (ICD-10) Chronic atrial fibrillation ?I48.20 - Chronic atrial fibrillation, unspecified (ICD-10) Full incontinence of feces ?R15.9 - Full incontinence of feces (ICD-10) Rheumatic mitral insufficiency ?I05.1 - Rheumatic mitral insufficiency (ICD-10) Urinary incontinence ?R32 - Unspecified urinary incontinence (ICD-10) Dysphagia ?R13.10 - Dysphagia, unspecified (ICD-10) Parotid mass ?K11.8 - Other diseases of salivary glands (ICD-10) Dementia ?F03.90 - Unspecified dementia, unspecified severity, without behavioral disturbance, psychotic disturbance, mood disturbance, and anxiety (ICD-10) Social History Narrative: Resident of [facility]. Was on hospice for parotid mass, suspicious for malignancy. Daughter, Nuzhat, , is POA. She confirmed patient is DNR/DNI, okay to give IVF during this hospital stay. What is your current living situation?: I presently have a place to live Problems where you live: unable to answer Problems where you live details: Pt from [facility] In the past 12 months, utilities in danger of being shut off: unable to answer In past 12 months, lack of transportation kept you from medical appts, meetings, work, or getting things needed for daily living: unable to answer In the past 12 mos, have been you worried that your food would run out before you had money to buy more?: unable to answer In the past 12 mos, the food you bought just didn't last and you didn't have money to buy more?: unable to answer Smoking Status: Never smoker Do you use any of these nicotine containing products: None How often do you have a drink containing alcohol: never AUDIT-C Alcohol total score: 0 Non-prescribed substance use: denies use How often does anyone, including family, friends and others, physically hurt you : unable to answer How often does anyone, including family, friends and others, insult or talk down to you: unable to answer How often does anyone, including family, friends and others, threaten you with harm: unable to answer How often does anyone, including family, friends and others, scream or curse at you: unable to answer Meds Home Medications and Allergies Home Medications ?Medication ?Instructions ?Recorded ?Confirmed ?Type hyoscyamine sulfate 0.125 mg 0.125 mg PO TID PRN 10/22/24 10/22/24 History sublingual tablet lorazepam 0.5 mg tablet 0.5 mg PO Q4H PRN 10/22/24 10/22/24 History melatonin 3 mg tablet 6 mg PO HS PRN 10/22/24 10/22/24 History morphine concentrate 100 mg/5 mL 5 mg PO Q4H 10/22/24 10/22/24 History (20 mg/mL) oral solution quetiapine 25 mg tablet 25 mg PO QHS 10/22/24 10/22/24 History venlafaxine 75 mg tablet,extended 75 mg PO DAILY 10/22/24 10/22/24 History release 24 hr Allergies Allergy/AdvReac Type Severity Reaction Status Date / Time No Known Drug Allergies Allergy Verified 10/22/24 16:54 Ortho Exam Narrative Exam Narrative: Patient is awake, moving, but not oriented to person, place, or time. He has some minor Parkinson type right thing taking place in the hospital bed while he lay supine today. Left lower extremity exam shows no lacerations or abrasions. No ecchymosis at this time. He seems to wince and ground with any sort hip range of motion or knee range of motion at this time. Neurologically intact in the superficial and deep peroneal as well as plantar distribution based on ankle range of motion/pumping that he is doing. Palpable DP and PT pulse. Strength and stability testing around the hip deferred today. Gait and station also deferred. Const Vital Signs, click to edit/add: Vital Signs - 24 hr 10/22/24 15:09 10/22/24 19:41 10/22/24 20:00 Temperature 97.8 F 99.1 F Pulse Rate [Pulse Oximeter] 89 86 Pulse Rate [Right Radial] 101 H Respiratory Rate 20 18 Blood Pressure [Left Arm] 129/109 H Blood Pressure [Right Upper Arm] 144/92 H 131/94 H Pulse Oximetry 97 93 91 Oxygen Delivery Method Room Air Room Air Room Air Oxygen Flow Rate 10/22/24 20:04 10/22/24 20:26 10/22/24 21:11 Temperature 99.1 F Pulse Rate [Pulse Oximeter] Pulse Rate [Right Radial] 101 H Respiratory Rate 18 18 Blood Pressure [Left Arm] 129/109 H Blood Pressure [Right Upper Arm] Pulse Oximetry 91 91 91 Oxygen Delivery Method Room Air Room Air Oxygen Flow Rate 10/22/24 22:07 10/22/24 22:10 10/22/24 23:22 Temperature 99.1 F 99.1 F Pulse Rate [Pulse Oximeter] Pulse Rate [Right Radial] 110 H 110 H Respiratory Rate 18 18 Blood Pressure [Left Arm] 127/88 Blood Pressure [Right Upper Arm] Pulse Oximetry 91 Oxygen Delivery Method Room Air Oxygen Flow Rate 10/22/24 23:22 10/23/24 01:24 10/23/24 01:24 Temperature Pulse Rate [Pulse Oximeter] Pulse Rate [Right Radial] Respiratory Rate 18 Blood Pressure [Left Arm] Blood Pressure [Right Upper Arm] Pulse Oximetry 91 77 L 77 L Oxygen Delivery Method Room Air Nasal Cannula Nasal Cannula Oxygen Flow Rate 3 3 10/23/24 01:25 10/23/24 01:25 10/23/24 02:35 Temperature 98.3 F Pulse Rate [Pulse Oximeter] Pulse Rate [Right Radial] 90 Respiratory Rate 18 Blood Pressure [Left Arm] 106/85 Blood Pressure [Right Upper Arm] Pulse Oximetry 97 97 92 Oxygen Delivery Method Nasal Cannula Nasal Cannula Nasal Cannula Oxygen Flow Rate 6 6 3 10/23/24 07:30 10/23/24 07:30 10/23/24 07:30 Temperature 97.9 F Pulse Rate [Pulse Oximeter] Pulse Rate [Right Radial] 79 Respiratory Rate 18 18 Blood Pressure [Left Arm] 113/55 L Blood Pressure [Right Upper Arm] Pulse Oximetry 90 90 90 Oxygen Delivery Method Nasal Cannula Nasal Cannula Oxygen Flow Rate 3 3 10/23/24 07:30 10/23/24 11:00 10/23/24 11:19 Temperature 97.5 F L Pulse Rate [Pulse Oximeter] Pulse Rate [Right Radial] 79 98 Respiratory Rate 18 20 Blood Pressure [Left Arm] 103/87 Blood Pressure [Right Upper Arm] Pulse Oximetry 98 95 Oxygen Delivery Method Nasal Cannula Oxygen Flow Rate 2 Results Labs Labs: Laboratory Results - last 48 hr 10/23/24 07:49 WBC 9.58 RBC 4.32 Hgb 13.3 L Hct 40.8 MCV 94 MCH 31 MCHC 33 RDW Coeff of Kushal 12.7 Plt Count 131 L Neut % (Auto) 78.4 H Lymph % (Auto) 12.3 L Bertie % (Auto) 7.1 Eos % (Auto) 1.8 Baso % (Auto) 0.3 Neut # (Auto) 7.50 H Lymph # (Auto) 1.20 Bertie # (Auto) 0.70 Eos # (Auto) 0.17 Baso # (Auto) 0.03 Abs Immat Gran (auto) 0.01 Imm/Tot Granulo (auto) 0.1 INR 1.50 H VBG pH Cancelled VBG pCO2 Cancelled VBG pO2 Cancelled VBG HCO3 Cancelled Sodium 136 Potassium 4.1 Chloride 101 Carbon Dioxide 32 Anion Gap 3 L BUN 15 Creatinine 0.9 Estimated Creat Clear 61.86 Estimated GFR 85 Glucose 106 Calcium 8.7 Magnesium 1.8 Troponin I < 0.01 L Diagnostic results Additional Comments: AP pelvis, AP and cross-table lateral radiographic views of the left hip from [facility] dated 10/22/2024 were ordered by different provider and reviewed by me. This demonstrates a valgus impacted femoral neck fracture that appears acute. No signs of AVN at this time. 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 CT scan of the pelvis from [facility] dated 10/22/2024 was also ordered by different provider and reviewed by me. This also demonstrates an acute, valgus impacted femoral neck fracture with mild displacement to the transcervical region of the femoral neck. Again visualizes the moderate-severe osteoarthrosis of bilateral hips Assessment and Plan Assessment and plan (1) Closed fracture of left hip: Problem comment: DOI 10/22/24: Acute mildly impacted and slightly displaced transcervical fracture left femoral neck. ORIF planned for 10/23/24. High risk surgical candidate given known cardiac arrhythmia, no previous anticoagulation, comfort based care in the last 6 months. Status: Acute Total time spent: Total time spent is greater than 50% in coordination of care (as documented) at patient's floor/unit and/or counseling patient: (2) Fall: Problem comment: DOI: 10/22/24. from standing; fell backward. CT head/spine = no acute injury. LEFT hip fracture. Status: Acute Total time spent: Total time spent is greater than 50% in coordination of care (as documented) at patient's floor/unit and/or counseling patient: (3) Transition from hospice to acute care: Problem comment: For acute issues related to fall on 10/22/24; hip fracture/hospitalization/ORIF. Status: Acute Total time spent: Total time spent is greater than 50% in coordination of care (as documented) at patient's floor/unit and/or counseling patient: (4) Chronic atrial fibrillation: Problem comment: - with rapid ventricular rate - Not anticoagulated due to hospice - Prn Metoprolol Status: Chronic Total time spent: Total time spent is greater than 50% in coordination of care (as documented) at patient's floor/unit and/or counseling patient: (5) Dementia: Problem comment: - seen neurology for memory changes, felt to be Parkinsonism vs lewy body dementia with a component of vascular dementia Status: Chronic Total time spent: Total time spent is greater than 50% in coordination of care (as documented) at patient's floor/unit and/or counseling patient: (6) Parotid mass: Problem comment: - 1 cm, suspicious for malignancy -> admitted to hospice 05/25/24 by Fatemeh Alcazar DO Status: Chronic Total time spent: Total time spent is greater than 50% in coordination of care (as documented) at patient's floor/unit and/or counseling patient: (7) Dysphagia: Problem comment: - He has dysphagia and can vomit if liquids are not thickened Status: Chronic Total time spent: Total time spent is greater than 50% in coordination of care (as documented) at patient's floor/unit and/or counseling patient: Plan It was not practical to have a conversation with the patient. His dementia did not allow meaningful conversation. Therefore, conversation was undertaken with his daughter on the telephone. I spoke with her and confirmed that she was aware of his current situation. She expressed that he is typically on hospice, but given his acute injury that it may be even more palliative for him to have surgery. I concur. Therefore, we discussed the risks and benefits of both nonoperative and surgical intervention. Surgery be for left femoral neck ORIF. We discussed the local risks (e.g. Infection, healing issues, malunion/nonunion, hardware irritation) as well as systemic risks (e.g. CT, VTE, stroke, ). She states understanding. Indeed she would like to proceed with surgery for on behalf of her father, Freddie Angel. Therefore, we will plan for this left femoral neck ORIF later today. He remains NPO. Following surgery, I would anticipate weight bear as tolerated left lower extremity. Walker ambulation assistance. He likely will benefit from a [facility] facility after discharge from the hospital. I was able to coordinate care with the anesthesia team today as well as the hospitalist team.
[2024-10-23] MEDS: CEFAZOLIN 1 GM inj IVP (15:38)
--- NOTE | 2024-10-23 15:43 | CRLHL7_ITS ---
For Patients: As a result of the Cures Act, medical imaging exams and procedure reports are released immediately into your electronic medical record. You may view this report before your referring provider. If you have questions, please contact your health care provider. Indication: INTRA OP LT HIP, HIP FX REPAIR Technique: Two fluoroscopic images left hip. Fluoroscopic time 44.6 seconds. IMPRESSION: Fluoroscopic guidance for open reduction internal fixation proximal left femoral fracture. Dictated by Devante Kumar MD @ 10/24/2024 8:47:48 AM (Electronically Signed)
--- NOTE | 2024-10-23 15:53 | P.NB_ITS ---
Nerve Block Nerve Block Time Seen by Provider: 15:33 Type of block requested by surgeon for post-operative analgesia: MARIA T/LFCN (Maria T only) Side: left Time out performed: Yes Verification of patient name: Yes Verification of date of : Yes Site marking: site marked Name of person performing procedure: Storm Continuous monitoring Was continuous monitoring of O2 sat, B/P, director of cardiac cath lab, recorded every 15 minutes?: Yes Procedure Checklist: sterile prep, needles and gloves Ultrasound guided. Images saved: Yes Medications given in 5ml increments after negative aspiration: Ropivicaine %: 0.5 mL: 20 Needle gauge: 20 Patient tolerated procedure well: Yes Additional comments: Needle noted below psoas tendon Block Charges Block Charge (with Pro Fee): Other Periph Nerve Block Use of Ultrasound Machine for Block: Yes- US Guidance/pain block
--- NOTE | 2024-10-23 15:54 | P.ANES_ITS ---
Anesthesia Charges Start Date/Time Anesthesia Start Date: 10/23/24 Anesthesia Start Time: 15:05 Stop Date/Time Anesthesia Stop Date: 10/23/24 Anesthesia Stop Time: 16:35 Summary Emergency: MDA Extremes of Age - Over 70 or under 1: MDA Coding CPT Codes CPT Codes: ANESTH SURGERY OF FEMUR - 89173 ([id number]) P4 - PT W/SEV SYS DIS THREAT LIFE, QK - ROLL PLUGGER MACHINE OPERATOR 2-4 CNCRNT ANES PROC, QX - ORGANIC EXTRACTIONS TECHNICIAN SVC W/ MD MED DIRECTION Additional Codes: Summary - Emergency: MDA ([id number]) Summary - Extremes of Age - Over 70 or under 1: MDA ([id number])
--- NOTE | 2024-10-23 15:54 | W.ANESCHARGE ---
Anesthesia Charges Start Date/Time Anesthesia Start Date: 10/23/24 Anesthesia Start Time: 15:05 Stop Date/Time Anesthesia Stop Date: 10/23/24 Anesthesia Stop Time: 16:35 Summary Emergency: MDA Extremes of Age - Over 70 or under 1: MDA Coding CPT Codes CPT Codes: ANESTH SURGERY OF FEMUR - 40271 ([id number]) P4 - PT W/SEV SYS DIS THREAT LIFE, QK - STATION CASHIER 2-4 CNCRNT ANES PROC, QX - ACUTE SPECIALIST SVC W/ MD MED DIRECTION Additional Codes: Summary - Emergency: MDA ([id number]) Summary - Extremes of Age - Over 70 or under 1: MDA ([id number])
--- NOTE | 2024-10-23 16:15 | PM.ORPRC ---
Procedure Note Date of procedure: 10/23/24 Procedure: PREOPERATIVE DIAGNOSES: 1. Left femoral neck fracture, valgus impacted, extra-articular POSTOPERATIVE DIAGNOSES: 1. Left femoral neck fracture, valgus impacted, extra-articular NAME OF OPERATION: 1. Left femur open reduction and internal fixation 2. 09685 - intraoperative fluoroscopy up to 1 hour. SURGEON: Shimon Alexander MD SECURITY SYSTEMS INTEGRATOR: Leslie mcdermott Pac. Of note, an title i instructional assistant was critical for this case to aide in patient positioning, extremity positioning, tissue retraction, instrument manipulation, and closure. ANESTHESIA: Spinal IMPLANTS: Synthes femoral neck system (FNS) with 1 hole side plate with associated screw, a lag screw, and divergent femoral head screw EBL: 50 mL COMPLICATIONS: None evident INDICATIONS: The patient is a pleasant, 83-year-old male who unfortunately sustained a fall within the last 24 hours. They landed on their left hip and were unable to bear weight. They experienced significant pain which prompted a visit to [facility]. X-rays were obtained and revealed a proximal femur fracture consistent with that described above. Given these findings, along with the desire to help with pain control and improve mobility/mobilization, surgery was recommended to stabilize the fracture and prevent it from displacing. PROCEDURE: Following a thorough discussion of risks, benefits, and alternatives, consent was obtained and the left hip was marked. After obtaining proper medical evaluation determining the patient was optimized prior to surgery, they were brought to the operating room and placed supine on the operating table. Induction of anesthesia undertaken. 1 g IV Ancef was administered within 1 hr of incision preoperatively. Proper time-out was performed identifying proper patient, site, and procedure. The operative extremity was prepped & draped in the appropriate sterile fashion using ChloraPrep after the patient was positioned on the fracture table with the head in neutral alignment and all bone prominences well padded. C-arm fluoroscopic imaging was utilized to obtain AP and lateral views of the operative hip. This indeed confirmed proper position of the proximal femur fracture. 10 blade skin incision was made distal to the greater trochanteric tip. Sharp incision through skin and ITB band allowed palpation of the proximal femur distal to the greater trochanteric tip. A partially threaded guidewire was initially placed near the center of the femoral neck position on both AP and lateral planes. Following this the associated steps for placement of the FNS device were completed sequentially including the bolt, crossing screw for 1 hole plate, and anti-rotation screw. C-arm fluoroscopic imaging confirmed fracture to remain stable, screws to be extra-articular, and the femur to now be moving as a single unit. Irrigation normal saline was performed followed by closure with # 0 Vicryl for the ITB band, 2-O Vicryl and 4-0 Monocryl for subcutaneous and subcuticular closure, respectively. The patient was awoken from anesthesia and transferred to the PACU in stable condition. PLAN: 1. Weight bear as tolerated operative lower extremity. 2. Encouraged ice. 3. Oxycodone for pain as needed. 4. 23 hr perioperative antibiotics. 5. Chemoprophylaxis for DVT prophylaxis along with SCDs.
--- NOTE | 2024-10-23 16:36 | P.ANES_ITS ---
Anesthesia Charges Start Date/Time Anesthesia Start Date: 10/23/24 Anesthesia Start Time: 15:05 Stop Date/Time Anesthesia Stop Date: 10/23/24 Anesthesia Stop Time: 16:35 Summary Emergency: MDA Extremes of Age - Over 70 or under 1: DOWEL MAKER Coding CPT Codes CPT Codes: ANESTH SURGERY OF FEMUR - 63669 ([id number]) P4 - PT W/SEV SYS DIS THREAT LIFE, QK - HOUSEKEEPING AND LAUNDRY TEAM LEADER 2-4 CNCRNT ANES PROC, QX - DOWEL MAKER SVC W/ MD MED DIRECTION Additional Codes: Summary - Extremes of Age - Over 70 or under 1: DOWEL MAKER ([id number]) Summary - Emergency: MDA ([id number])
--- NOTE | 2024-10-23 16:36 | W.ANESCHARGE ---
Anesthesia Charges Start Date/Time Anesthesia Start Date: 10/23/24 Anesthesia Start Time: 15:05 Stop Date/Time Anesthesia Stop Date: 10/23/24 Anesthesia Stop Time: 16:35 Summary Emergency: MDA Extremes of Age - Over 70 or under 1: METER RECORD CLERK Coding CPT Codes CPT Codes: ANESTH SURGERY OF FEMUR - 01890 ([id number]) P4 - PT W/SEV SYS DIS THREAT LIFE, QK - MUSEUM SERVICE SCHEDULER 2-4 CNCRNT ANES PROC, QX - METER RECORD CLERK SVC W/ MD MED DIRECTION Additional Codes: Summary - Extremes of Age - Over 70 or under 1: METER RECORD CLERK ([id number]) Summary - Emergency: MDA ([id number])
[2024-10-23] MEDS: LACTATED RINGERS 1000 ML 1,000 ML 50 ML IV (17:54)
[2024-10-23] MEDS: CEFAZOLIN 1 GM in 0.9 % SODIUM CHLORIDE Mini-bag 100 ML IVPB (20:15)
[2024-10-23] MEDS: QUETIAPINE 25 MG TABLET PO (20:18)
[2024-10-23] MEDS: SENNOSIDES 1 TAB TABLET 2 TAB PO (20:18)
--- NOTE | 2024-10-23 22:12 | PC.NURSE ---
Patient here during the day awaiting surgery. NPO prior to surgery and given PRN pain medication to help alleviate pain. Patient arrived back to the floor around 1700 post-op. Tachycardia, otherwise vitally stable. PRN metoprolol administered at 2114 for HR>100. Patient alert, pulling at cords and wincing with movement- PRN pain medications administered. Patient drinking fluids if nurse puts up to patient mouth. Patient refusing to eat at this time. Nursing help turn and repo patient due to pain and patient not moving otherwise. Patient needing 1L oxygen while sleeping and with pain medication to keep oxygen saturation >90%. Patient incontinent- nursing checking brief. Nursing to continue to monitor.
[2024-10-24] VITALS (14 sets, daily range): BP systolic 109–139; BP diastolic 69–92; PULSE 85–124; RESP 16–18; TEMP 36.7–37.4; O2SAT 93–97
[2024-10-24] MEDS: HYDROmorphone 0.5 mg/0.5 ml inj IVP ×4 (02:03→17:08)
[2024-10-24] MEDS: CEFAZOLIN 1 GM in 0.9 % SODIUM CHLORIDE Mini-bag 100 ML IVPB (04:06)
[2024-10-24] MEDS: METOPROLOL TARTRATE 1 MG/ML inj 5 MG IVP ×3 (04:08→17:08)
[2024-10-24 06:52] LABS: Hematocrit 38.5 % (37.0-53.0); Hemoglobin* 12.8 gm/dL (13.5-17.5); Mean Corpuscular HGB Conc 33 gm/dL (32-36); Mean Corpuscular Hemoglobin 31 pg (26-34); Mean Corpuscular Volume 94 fL (80-100); Platelet Count* 118 K/uL (140-440); White Blood Count* 8.31 K/uL (4.50-11.00)
--- NOTE | 2024-10-24 06:54 | PC.NURSE ---
End of shift summary: Pt has been drowsy & sleeping in between cares but with repositioning and VS, he moans, winces and grabs out for staff d/t pain. IV Dilaudid given x2 doses overnight. IVP Metoprolol also given @ 0200 for HR sustaining > 100. After metoprolol, HR remained in high 90s to low 100s. Pt showed no attempt overnight to swallow thickened liquids so PO PRN meds were not given. PIV in left FA infusing LR @ 75 mL/hr. Pt has been incontinent overnight of DARK maxine urine. He?s passing gas but no BM. TELE is in place but not ordered to monitor HR for metoprolol admin. Left lateral hip dressing is C/D/I. Active ice has been on/off overnight. RN noted localized swelling around the dressing, no redness or firmness. SCD?s in place all night. Pt has a bed hold at [facility] to return there on discharge. ?
[2024-10-24 06:58] LABS: Slide Review Reflex No
[2024-10-24 07:05] LABS: Chloride* 105 mmol/L (96-114); Potassium* 3.6 mmol/L (3.6-5.1); Sodium* 139 mmol/L (135-149)
[2024-10-24 07:08] LABS: Blood Urea Nitrogen* 14 mg/dL (7-30); Creatinine* 0.8 mg/dL (0.5-1.5); Est. Creatinine Clearance* 61.86; Estimated Glomerular Filt Rate 88 ml/min
[2024-10-24 07:09] LABS: Anion Gap 5 mEq/L (7-15); Calcium* 8.6 mg/dL (8.4-10.6); Carbon Dioxide* 29 mmol/L (20-32); Glucose* 94 mg/dL (60-115)
[2024-10-24 07:10] LABS: INR 1.33 (0.91-1.10); Prothrombin Time 17.4 Seconds
--- NOTE | 2024-10-24 07:42 | P.IMPN_ITS ---
Assessment and Plan Assessment and plan (1) History of open reduction and internal fixation (ORIF) procedure: Problem comment: Left femur open reduction and internal fixation (10/23/24, Dr. Alexander) -doing well postop day 1. Continue in-hospital care for occupational physical therapy. -on Xarelto for postop anticoagulation -pain management with IV hydromorphone and oral oxycodone and scheduled Tylenol -high risk for in-hospital delirium and VTE occurrence Status: Acute (2) Closed fracture of left hip: Problem comment: nondisplaced impacted fracture present in the left femoral neck. DOI - 10/22/24 - fall from standing height in hallway of SNF ORIF - 10/23/24 Status: Acute (3) Fall: Problem comment: DOI: 10/22/24. from standing; fell backward. CT head/spine = no acute injury. LEFT hip fracture. Status: Acute (4) Transition from hospice to acute care: Problem comment: For acute issues related to fall on 10/22/24; hip fracture/hospitalization/ORIF. 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 Status: Chronic (7) Parotid mass: Problem comment: - 1 cm, suspicious for malignancy -> admitted to hospice 05/25/24 by Fatemeh Alcazar DO Status: Chronic (8) Dysphagia: Problem comment: - He has dysphagia and can vomit if liquids are not thickened Status: Chronic Subjective Date Seen: 10/24/24 Interval history: Daily Progress Note - Hospital Medicine Day #: 3 Post-Op Day #: 1 Procedure: Left femur open reduction and internal fixation CC: Hip fracture (s/p ORIF on 10/24), history of parotid carcinoma, dementia - coming from [facility] 24 HOUR UPDATE: Patient looks better than expected this morning. He has been weaned off his oxygen. He was sitting in the chair when I enter the room. There is no obvious delirium. He communicated a couple of times with short sentences. He was able to stand with the help of therapy. He took 3 steps. Notable Labs, Micro, Rads, Interventions: Vital signs are reviewed. Hemodynamically stable. He has been low-flow oxygen as needed with PT. chest x-ray done this morning secondary to productive cough showed some mild pulmonary edema. CBC reassuring. Chemistries are normal. Troponin is undetectable. Renal function is normal. Objective: Voice clear today. He is more intentional with his movements and words. Vitals: see above Lungs: Clear. Cardiac: S1S2. Surgical site is covered without any significant blood loss or obvious hematoma. Disposition/Potential discharge - He is on a bed hold from [facility] and will likely return there with postop cares. Today I spent 50minutes seeing the patient, reviewing Expanse and EPIC notes/diagnostics, discussing the care plan with our care time that includes social work, PT/OT, pharmacy, RT, fdc and documenting my impressions and plan in the medical record. Exam Const: Vital Signs, click to edit/add: Vital Signs - 24 hr 10/23/24 11:00 10/23/24 11:19 10/23/24 16:30 Temperature 97.5 F L 98.9 F Pulse Rate 102 H Pulse Rate [Right Radial] 98 Respiratory Rate 20 16 Blood Pressure 134/96 H Blood Pressure [Le ft Arm] 103/87 Blood Pressure [Ri ght Arm] Pulse Oximetry 98 95 92 Oxygen Delivery Me thod Nasal Cannula Nasal Cannula OxyM ask Oxygen Flow Rate 2 10 10/23/24 16:35 10/23/24 16:40 10/23/24 16:45 Temperature 98.7 F Pulse Rate 103 H 101 H 104 H Pulse Rate [Right Radial] Respiratory Rate 18 18 16 Blood Pressure 132/95 H 139/93 H 133/92 H Blood Pressure [Le ft Arm] Blood Pressure [Ri ght Arm] Pulse Oximetry 91 91 94 Oxygen Delivery Me thod OxyMask OxyMask OxyMask Oxygen Flow Rate 10 10 10 10/23/24 16:50 10/23/24 16:55 10/23/24 16:58 Temperature 98.5 F Pulse Rate 100 99 103 H Pulse Rate [Right Radial] Respiratory Rate 16 16 18 Blood Pressure 142/93 H 139/97 H 135/96 H Blood Pressure [Le ft Arm] Blood Pressure [Ri ght Arm] Pulse Oximetry 93 93 93 Oxygen Delivery Me thod Room Air OxyMask OxyMask Oxygen Flow Rate 10 10 10/23/24 17:05 10/23/24 17:15 10/23/24 17:30 Temperature 98.2 F 98.5 F 97.4 F L Pulse Rate 100 101 H 88 Pulse Rate [Right Radial] Respiratory Rate 18 20 18 Blood Pressure 129/90 H 128/93 H 127/98 H Blood Pressure [Le ft Arm] Blood Pressure [Ri ght Arm] Pulse Oximetry 96 96 96 Oxygen Delivery Me thod OxyMask OxyMask Oxygen Flow Rate 10 4 4 10/23/24 17:45 10/23/24 18:00 10/23/24 18:30 Temperature 98.1 F 97.6 F Pulse Rate 89 98 96 Pulse Rate [Right Radial] Respiratory Rate 18 18 20 Blood Pressure 119/95 H 136/99 H 142/100 H Blood Pressure [Le ft Arm] Blood Pressure [Ri ght Arm] Pulse Oximetry 97 97 97 Oxygen Delivery Me thod OxyMask OxyMask OxyMask Oxygen Flow Rate 4 3 2 10/23/24 19:00 10/23/24 19:00 10/23/24 20:00 Temperature 97.8 F Pulse Rate 95 94 Pulse Rate [Right Radial] Respiratory Rate 18 18 Blood Pressure 138/97 H 141/106 H Blood Pressure [Le ft Arm] Blood Pressure [Ri ght Arm] Pulse Oximetry 92 96 96 Oxygen Delivery Me thod OxyMask OxyMask Oxygen Flow Rate 2 1 10/23/24 21:00 10/23/24 22:00 10/23/24 23:00 Temperature 97.8 F 97.8 F 98.5 F Pulse Rate 103 H 93 94 Pulse Rate [Right Radial] Respiratory Rate 18 16 16 Blood Pressure 132/94 H 135/93 H 123/89 Blood Pressure [Le ft Arm] Blood Pressure [Ri ght Arm] Pulse Oximetry 93 93 94 Oxygen Delivery Me thod OxyMask OxyMask OxyMask Oxygen Flow Rate 1 1 1 10/23/24 23:00 10/23/24 23:00 10/23/24 23:00 Temperature Pulse Rate Pulse Rate [Right Radial] 107 H Respiratory Rate 16 16 Blood Pressure Blood Pressure [Le ft Arm] Blood Pressure [Ri ght Arm] Pulse Oximetry 96 96 Oxygen Delivery Me thod OxyMask Oxygen Flow Rate 4 10/24/24 00:30 10/24/24 03:00 10/24/24 03:00 Temperature 99.1 F Pulse Rate Pulse Rate [Right Radial] 106 H Respiratory Rate 16 Blood Pressure Blood Pressure [Le ft Arm] Blood Pressure [Ri ght Arm] 139/92 H Pulse Oximetry 96 96 96 Oxygen Delivery Me thod OxyMask OxyMask Oxygen Flow Rate 4 4 10/24/24 04:09 Temperature Pulse Rate Pulse Rate [Right Radial] 113 H Respiratory Rate Blood Pressure Blood Pressure [Le ft Arm] Blood Pressure [Ri ght Arm] Pulse Oximetry Oxygen Delivery Me thod Oxygen Flow Rate Labs Labs: Laboratory Results - last 24 hr 10/23/24 10/24/24 07:49 06:15 WBC 9.58 8.31 RBC 4.32 4.10 L Hgb 13.3 L 12.8 L Hct 40.8 38.5 MCV 94 94 MCH 31 31 MCHC 33 33 RDW Coeff of Kushal 12.7 Plt Count 131 L 118 L Neut % (Auto) 78.4 H Lymph % (Auto) 12.3 L Mccracken % (Auto) 7.1 Eos % (Auto) 1.8 Baso % (Auto) 0.3 Neut # (Auto) 7.50 H Lymph # (Auto) 1.20 Mccracken # (Auto) 0.70 Eos # (Auto) 0.17 Baso # (Auto) 0.03 Abs Immat Gran (auto) 0.01 Imm/Tot Granulo (auto) 0.1 INR 1.50 H 1.33 H VBG pH Cancelled VBG pCO2 Cancelled VBG pO2 Cancelled VBG HCO3 Cancelled Sodium 136 139 Potassium 4.1 3.6 Chloride 101 105 Carbon Dioxide 32 29 Anion Gap 3 L 5 L BUN 15 14 Creatinine 0.9 0.8 Estimated Creat Clear 61.86 61.86 Estimated GFR 85 88 Glucose 106 94 Calcium 8.7 8.6 Magnesium 1.8 Troponin I < 0.01 L
[2024-10-24] MEDS: LACTATED RINGERS 1000 ML 1,000 ML 50 ML IV (08:24)
[2024-10-24] MEDS: OXYCODONE 5 MG TABLET PO ×3 (08:37→20:19)
[2024-10-24] MEDS: SENNOSIDES 1 TAB TABLET 2 TAB PO ×2 (08:38→20:19)
[2024-10-24] MEDS: RIVAROXABAN 10 MG TABLET PO (08:38)
[2024-10-24] MEDS: ACETAMINOPHEN 325 MG TABLET 975 MG PO (08:38)
[2024-10-24] MEDS: VENLAFAXINE HCL ER 37.5 MG CAPSULE 75 MG PO (08:39)
--- NOTE | 2024-10-24 09:40 | PM.ORPN ---
Subjective Subjective Time Seen by Provider: 09:20 Date Seen: 10/24/24 Principal diagnosis: Day 1 s/p left femur open reduction and internal fixation Interval history: Freddie is resting comfortably in his recliner with mild pain, moaning and grimacing, with left hip motion. Pain is well managed with icing, Oxycodone and Tylenol PRN. Dilaudid given overnight. Daughter, Mary Alice, and son-in-law, Tito, present during our visit. Freddie has dementia and does not appropriately respond to questions. Patient has not yet ambulated and not yet been seen by PT/OT. I spoke with his nurse, Leora, who reports Freddie had trouble swallowing thickened liquids and coughed up yellow/green phlegm. Swallow study will be performed later today. Mary Alice is requesting a chest x-ray to rule out pneumonia. Freddie resides at [facility] and tentatively will be returning to [facility] upon discharge. Ortho Exam Narrative Exam Narrative: Incision/Dressing: Dressing appears clean and dry. No drainage present. Mepilex intact. Minimal left hip swelling with no obvious erythema, fluctuance or excessive warmth. No ecchymosis or erythematous streaking. Warmth around the wound is appropriate. Ice is being utilized as needed. CMS: Intact distally with 2+ Dorsalis pedis and Posterior Tibial pulses. 5/5 motor strength dorsal and plantar flexion. Calf: Bilateral calves are supple, with no swelling, pain, tenderness, erythema, discoloration or coolness to the touch. Constitutional: Patient has dementia and did not appropriately respond to questions. Patient demonstrated some grimacing with hip movement. No shortness of breath. Patient appears comfortable without distress. Const Vital Signs, click to edit/add: Vital Signs - 24 hr 10/23/24 11:00 10/23/24 11:19 10/23/24 16:30 Temperature 97.5 F L 98.9 F Pulse Rate 102 H Pulse Rate [Right Radial] 98 Respiratory Rate 20 16 Blood Pressure 134/96 H Blood Pressure [Left Arm] 103/87 Blood Pressure [Right Arm] Pulse Oximetry 98 95 92 Oxygen Delivery Method Nasal Cannula Nasal Cannula OxyMask Oxygen Flow Rate 2 10 10/23/24 16:35 10/23/24 16:40 10/23/24 16:45 Temperature 98.7 F Pulse Rate 103 H 101 H 104 H Pulse Rate [Right Radial] Respiratory Rate 18 18 16 Blood Pressure 132/95 H 139/93 H 133/92 H Blood Pressure [Left Arm] Blood Pressure [Right Arm] Pulse Oximetry 91 91 94 Oxygen Delivery Method OxyMask OxyMask OxyMask Oxygen Flow Rate 10 10 10 10/23/24 16:50 10/23/24 16:55 10/23/24 16:58 Temperature 98.5 F Pulse Rate 100 99 103 H Pulse Rate [Right Radial] Respiratory Rate 16 16 18 Blood Pressure 142/93 H 139/97 H 135/96 H Blood Pressure [Left Arm] Blood Pressure [Right Arm] Pulse Oximetry 93 93 93 Oxygen Delivery Method Room Air OxyMask OxyMask Oxygen Flow Rate 10 10 10/23/24 17:05 10/23/24 17:15 10/23/24 17:30 Temperature 98.2 F 98.5 F 97.4 F L Pulse Rate 100 101 H 88 Pulse Rate [Right Radial] Respiratory Rate 18 20 18 Blood Pressure 129/90 H 128/93 H 127/98 H Blood Pressure [Left Arm] Blood Pressure [Right Arm] Pulse Oximetry 96 96 96 Oxygen Delivery Method OxyMask OxyMask Oxygen Flow Rate 10 4 4 10/23/24 17:45 10/23/24 18:00 10/23/24 18:30 Temperature 98.1 F 97.6 F Pulse Rate 89 98 96 Pulse Rate [Right Radial] Respiratory Rate 18 18 20 Blood Pressure 119/95 H 136/99 H 142/100 H Blood Pressure [Left Arm] Blood Pressure [Right Arm] Pulse Oximetry 97 97 97 Oxygen Delivery Method OxyMask OxyMask OxyMask Oxygen Flow Rate 4 3 2 10/23/24 19:00 10/23/24 19:00 10/23/24 20:00 Temperature 97.8 F Pulse Rate 95 94 Pulse Rate [Right Radial] Respiratory Rate 18 18 Blood Pressure 138/97 H 141/106 H Blood Pressure [Left Arm] Blood Pressure [Right Arm] Pulse Oximetry 92 96 96 Oxygen Delivery Method OxyMask OxyMask Oxygen Flow Rate 2 1 10/23/24 21:00 10/23/24 22:00 10/23/24 23:00 Temperature 97.8 F 97.8 F 98.5 F Pulse Rate 103 H 93 94 Pulse Rate [Right Radial] Respiratory Rate 18 16 16 Blood Pressure 132/94 H 135/93 H 123/89 Blood Pressure [Left Arm] Blood Pressure [Right Arm] Pulse Oximetry 93 93 94 Oxygen Delivery Method OxyMask OxyMask OxyMask Oxygen Flow Rate 1 1 1 10/23/24 23:00 10/23/24 23:00 10/23/24 23:00 Temperature Pulse Rate Pulse Rate [Right Radial] 107 H Respiratory Rate 16 16 Blood Pressure Blood Pressure [Left Arm] Blood Pressure [Right Arm] Pulse Oximetry 96 96 Oxygen Delivery Method OxyMask Oxygen Flow Rate 4 10/24/24 00:30 10/24/24 03:00 10/24/24 03:00 Temperature 99.1 F Pulse Rate Pulse Rate [Right Radial] 106 H Respiratory Rate 16 Blood Pressure Blood Pressure [Left Arm] Blood Pressure [Right Arm] 139/92 H Pulse Oximetry 96 96 96 Oxygen Delivery Method OxyMask OxyMask Oxygen Flow Rate 4 4 10/24/24 04:09 10/24/24 07:30 10/24/24 07:30 Temperature Pulse Rate Pulse Rate [Right Radial] 113 H Respiratory Rate 18 Blood Pressure Blood Pressure [Left Arm] Blood Pressure [Right Arm] Pulse Oximetry 96 96 Oxygen Delivery Method OxyMask Oxygen Flow Rate 2 10/24/24 07:30 10/24/24 07:30 Temperature 98.1 F Pulse Rate Pulse Rate [Right Radial] 95 95 Respiratory Rate 16 16 Blood Pressure Blood Pressure [Left Arm] Blood Pressure [Right Arm] 139/75 Pulse Oximetry 95 Oxygen Delivery Method OxyMask Oxygen Flow Rate 2 Assessment and Plan Assessment and plan (1) Closed fracture of left hip: Problem details: Day 1 s/p left femur open reduction and internal fixation (DOS: 10/23/24, Dr. Alexander) Status: Acute Assessment and Plan: - Chest x-ray ordered to rule out aspiration pneumonia. - Dressing is waterproof. May shower. Surgical glue covers the wound. - Weight bear as tolerated operative lower extremity with walker for assistance. - PT/OT consults. - For pain management, recommend rest, ice, Oxycodone and/or acetaminophen PRN. - DVT prophylaxis includes: Xarelto, ankle pumps when sedentary and frequent ambulation. - Discharge timing unknown, but I anticipate Freddie will return to [facility] upon discharge. - Patient will follow-up with myself in 2 weeks. [facility] Nursing staff may remove Mepilex dressing at 7-10 days postop and perform a wound check. Please contact our clinic with any concerns. - Notify Orthopedics with any questions or concerns. [phone]
--- NOTE | 2024-10-24 09:44 | CRLHL7_ITS ---
For Patients: As a result of the Century Cures Act, medical imaging exams and procedure reports are released immediately into your electronic medical record. You may view this report before your referring provider. If you have questions, please contact your health care provider. INDICATION: Short of breath, concern for aspiration pneumonia TECHNIQUE: 1 view chest radiograph COMPARISON: 10/22/2024 FINDINGS: Devices: None. Lung volumes are good. Prominent pulmonary vascular markings. Peripheral septal lines. Mild right fissural thickening is the same. No layering pleural effusion. No pneumothorax. Heart size is large but similar. Atherosclerotic vascular calcifications. IMPRESSION: Mild pulmonary edema. No layering pleural effusion seen. Dictated by Elisa Waite MD @ 10/24/2024 10:13:42 AM (Electronically Signed)
[2024-10-24] MEDS: FUROSEMIDE 10 MG/ML inj 20 MG IVP (11:27)
--- NOTE | 2024-10-24 11:46 | PC.SOCIAL ---
Discharge planning: foster care worker confirmed with the provider on duty that the pt will be staying in the hospital again tonight. foster care worker notified Mary Kate at [facility]. foster care worker secure emailed Mary Kate updated progress notes on the pt and also asked them if the pt would be able to have bed alarms on his bed when he returns to [facility] on their campus after his hospital stay per the request of the provider on duty. foster care worker also connected with Utilization Review who consulted with the hospital billing department and found that it is okay for the pt to still be active with [facility] during this hospital stay due to the hospitalization not being related to the pt's hospice diagnosis. Social work to follow-up as needed.
--- NOTE | 2024-10-24 12:24 | NUTR.NU ---
RDN with positive skin risk. Patient is a resident at [facility] where is receives Hospice services. Plan is for patient to return to [facility] on hospice. Not appropriate for nutrition screen at this time.
--- NOTE | 2024-10-24 12:26 | REH.OT ---
Per pt's dtr, pt lives at memory care where they assist pt with grooming, dressing, toileting, bathing and all IADLs. No OT warranted at this time to avoid duplication of services with PT; PT to focus on mobilizing pt during IP stay. Defer to PT recommendation on d/c disposition.
[2024-10-24] MEDS: ACETAMINOPHEN 650 MG TABLET ER 1300 MG PO ×2 (15:58→22:33)
--- NOTE | 2024-10-24 18:55 | PC.NURSE ---
End of shift . pt is alert x0 he cant tell me his . he has dementia. IV is patent. he did not do good with eating breakfast up in the chair. but he did better with his daughter at noon. he was able to help some. he did not do good with OPERATIONS SUPPORT SPECIALIST feeding him at supper. Pt does not complain of pain in the chair or bed. he does hurt with any cares and moving. he is getting po and IV pain meds. IVP Metoprolol also given for HR> 100. SL in left FA infusing LR @ 75 mL/hr. Pt has been incontinent of urine. He?s passing gas but no BM. TELE shows A-Fib. Left hip dressing is C/D/I. Active ice has been on/off. . SCD?s are on and off. ?he is a 2-3 assist to get up he does not move well. turn and pivot can be difficult. he took 3 steps with PT. alarms are on
[2024-10-24] MEDS: QUETIAPINE 25 MG TABLET PO (20:19)
[2024-10-24] MEDS: LACTATED RINGERS 1000 ML 1,000 ML 75 ML IV (20:51)
[2024-10-25] VITALS: O2SAT 96
[2024-10-25 01:55] VITALS: BP 118/78; PULSE 112; RESP 20; TEMP 37.4; O2SAT 98
[2024-10-25 04:00] VITALS: O2SAT 98
[2024-10-25] MEDS: OXYCODONE 5 MG TABLET PO ×2 (04:50→09:46)
--- NOTE | 2024-10-25 07:02 | PC.NURSE ---
19-07: pleasant and redirectable. Pivot transfer A x 2 from chair to bed. Repo in bed q2h, tolerated well. Incont of B&B, 1x soft BM. 5mg oxy given for pain. Pt removed tele, reading AFIB RVR when attached, did not give prn metoprolol d/t soft BP.
[2024-10-25 07:08] LABS: Hematocrit 39.2 % (37.0-53.0); Mean Corpuscular HGB Conc 33 gm/dL (32-36); Mean Corpuscular Hemoglobin 31 pg (26-34); Mean Corpuscular Volume 94 fL (80-100); Platelet Count* 120 K/uL (140-440); Red Blood Count 4.18 m/uL (4.30-5.90); White Blood Count* 8.61 K/uL (4.50-11.00)
[2024-10-25 07:28] LABS: Slide Review Reflex No
[2024-10-25 07:45] VITALS: PULSE 92
[2024-10-25 07:50] VITALS: BP 141/109; PULSE 90; RESP 20; TEMP 37.3; O2SAT 96
[2024-10-25] MEDS: ACETAMINOPHEN 650 MG TABLET ER 1300 MG PO (09:08)
[2024-10-25] MEDS: RIVAROXABAN 10 MG TABLET PO (09:08)
[2024-10-25 09:19] VITALS: RESP 20; O2SAT 99
--- NOTE | 2024-10-25 10:50 | PC.SOCIAL ---
Addendum entered by JOEY Breen 10/25/24 11:59: Discharge planning: family service worker spoke with pt's daughter, Nuzhat, she is aware that Dimitris did not end up revoking the hospice. family service worker reassured her that hospital staff checked into this matter and that because the pt's hospitalization was not related to his hospice diagnosis this hospitalization will still be able to be billed to Medicare. family service worker also provided pt and his daughter with another copy of The Important Message from Medicare form and explained the hospital discharge appeal process. Pt and his daughter have no plans to appeal the discharge and pt is pleased to go back to [facility] today. Social work to follow-up as needed. Addendum entered by JOEY Breen 10/25/24 10:57: Discharge planning: Discharge orders were secure emailed to Mary Kate at [facility]. Social work to follow-up as needed. Original Note: Discharge planning: Pt is able to return to [facility] today. Per the request of the provider on duty, [facility] will add bed alarms to the pt's bed, as well as, lowering the bed and adding a fall mat the floor of pt's bed side. family service worker left a message with pt's nurse, Mauricio, from [facility] out of [place] #[phone] informing him that the pt will be returning to [facility] today. Pt's daughter, Nuzhat, was informed via telephone. Pt will qualify for insurance coverage for non-emergent EMS transport due to his Dimentia diagnosis and recent hip fracture. Non-emergent EMS is scheduled for transport at noon. family service worker informed [facility]. Social work to follow-up as needed.
--- NOTE | 2024-10-25 12:56 | PC.NURSE ---
The patient discharged back to [facility] via non emergent EMS. Nurse to nurse report was given to Mirela regarding the patient. L hip mepilex CDI and L knee mepilex CDI. The patient moves well with Ax1-2 w/ GB and RW. He needs a lot of cuing with any type of ADLS. The patient is unable to verbalize pain. Tolerates moderately thickened liquids with no straws, Minced and moist diet, at times needs cuing and assistance to eat. Incontinent of bowel and bladder. around 1245 I called [facility] and let them know that I forgot to remove the patients IV. It was in the L arm of the patient.
--- NOTE | 2024-10-25 15:11 | P.DS_ITS ---
DS: Providers Provider Date Seen: 10/25/24 Date of admission: 10/22/24 20:58 Primary care physician: Azael Beard MD Admitting Clinician: Lucrecia Atkinson MD Consults: 10/22/24 20:58 Consult to Occupational Therapy [CONS] Routine Comment: Reason(s) for OT Consult:: Evaluate and Treat Any Restrictions?:: No Restrictions Consult to Physical Therapy [CONS] Routine Comment: Reason(s) for PT Consult:: Evaluate and Treat Any Restrictions?:: No Restrictions Consult to Physician [CONS] Routine Comment: Consulting Provider: Abrahan Gallagher Has provider been notified: Yes Consult to [employer] [CONS] Routine Comment: Reason for Consult:: Hospice Needed Attending Physician on discharge: Daksha Vera MD [facility] Date of Discharge: 10/25/24 DS: Diagnosis Discharge Diagnosis (1) History of open reduction and internal fixation (ORIF) procedure: Status: Acute Problem details: Left femur open reduction and internal fixation (10/23/24, Dr. Alexander) -on Xarelto then aspirin for postop anticoagulation - scheduled Tylenol and limited p.r.n. use of oxycodone (2) Closed fracture of left hip: Status: Acute Problem details: nondisplaced impacted fracture present in the left femoral neck. DOI - 10/22/24 - fall from standing height in hallway of SNF ORIF - 10/23/24 (3) Fall: Status: Acute Problem details: DOI: 10/22/24. from standing; fell backward. CT head/spine = no acute injury. LEFT hip fracture. (4) Transition from hospice to acute care: Status: Acute Problem details: For acute issues related to fall on 10/22/24; hip fracture/hospitalization/ORIF. 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 Hip fracture - fall at [facility] (DOI 10/22/24). ORIF to the left hip (10/23/24). Did exceedingly well with surgery with no postop delirium or complications. Discharged on postop day 2. BRIEF HOSPITAL COURSE: Patient was admitted for 4 days. Synopsis of acute inpatient issues are outlined above. Chronic medical conditions with notable findings outlined above. His Left Femur ORIF surgery was successful and uncomplicated on 10/23/2024. 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 He received standard of care treatment for his hip fracture. He did quite well with surgery and immediately post-operatively. We have not seen any superimposed delirium. Despite hospice status, he was a good candidate for surgery. He is ambulatory at a baseline and terminal sedation, understandably, was not pursued by the family. Our suggestion is to give him the best opportunity to have a short term successful rehab with the hip fixation. To that end, we recommend 5 days total of Xarelto anticoagulation (He has received two doses in acute stay), followed by 25 days of BID aspirin. We recommend routine therapies to help him remain as ambulatory and safe from falls as possible. We recommend scheduled extended release acetaminophen and limited use of oxycodone. Staff can decide if he responds better to his previous oral morphine or trial the oral oxycodone. Both will increase risk of falls and delirium. Ice, reassurance and schedule Tylenol are the best options. DISCHARGE MEDICATIONS: See Reconciled list - SIGNIFICANT CHANGES: Xarelto for 3 more days, aspirin b.i.d. for 25 days scheduled Tylenol Specific instructions to the patient and follow-up are outlined below. REVIEW OF SYSTEMS No new chest pain or dyspnea Pain controlled No voiding difficulties Tolerating diet challenge PHYSICAL EXAM: CONSTITUTIONAL: sensorium much improved after surgery. He is at his baseline with intermittent short sentences. Impulsive with activity which is his baseline. GENERAL: Well-developed and above ideal body weight, in no respiratory distress. VITAL SIGNS: see record. HEENT: Sclerae are anicteric. No petechiae. CARDIAC: rate controlled irregularly irregular. There is no S3 or rub. No harsh murmurs. Extremities show trace edema with symmetrical pulses. PULM: good air entry with no wheeze. NEURO: Speech is fluent. A brief neurologic exam is negative. SKIN: No rashes, petechiae, concerning changes PSYCHIATRIC: Euthymic. DISPOSITION: Back to [facility] care, pathways 3 links Time spent on discharge 37 minutes. Status at Discharge Functional status at discharge: uses cane/walker Overall status at discharge: patient is progressing back to baseline Time Spent with Patient Time attestation: Total time spent providing and/or coordinating discharge services: Exam Const: Vital Signs, click to edit/add: Vital Signs - 24 hr 10/24/24 15:40 10/24/24 15:40 10/24/24 15:40 Temperature 98.6 F Pulse Rate Pulse Rate [Pulse Oximeter] Pulse Rate [Right Radial] 101 H Respiratory Rate 16 16 Blood Pressure [Le ft Arm] Blood Pressure [Ri ght Arm] 124/84 Pulse Oximetry 93 93 93 Oxygen Delivery Me thod Room Air OxyMask Room Air OxyMask 10/24/24 16:28 10/24/24 16:40 10/24/24 20:20 Temperature Pulse Rate 120 H Pulse Rate [Pulse Oximeter] Pulse Rate [Right Radial] 101 H Respiratory Rate 16 Blood Pressure [Le ft Arm] Blood Pressure [Ri ght Arm] Pulse Oximetry 97 Oxygen Delivery Me thod 10/24/24 20:20 10/24/24 22:30 10/24/24 22:56 Temperature 98.7 F 99.4 F Pulse Rate 124 H Pulse Rate [Pulse Oximeter] 106 H Pulse Rate [Right Radial] 96 Respiratory Rate 16 16 Blood Pressure [Le ft Arm] 123/79 109/69 Blood Pressure [Ri ght Arm] Pulse Oximetry 97 95 Oxygen Delivery Me thod Room Air Room Air 10/24/24 23:00 10/24/24 23:00 10/25/24 00:00 Temperature Pulse Rate Pulse Rate [Pulse Oximeter] Pulse Rate [Right Radial] Respiratory Rate 16 Blood Pressure [Le ft Arm] Blood Pressure [Ri ght Arm] Pulse Oximetry 95 96 Oxygen Delivery Me thod Room Air 10/25/24 01:55 10/25/24 04:00 10/25/24 07:45 Temperature 99.3 F Pulse Rate Pulse Rate [Pulse Oximeter] 112 H 92 Pulse Rate [Right Radial] Respiratory Rate 20 Blood Pressure [Le ft Arm] 118/78 Blood Pressure [Ri ght Arm] Pulse Oximetry 98 98 Oxygen Delivery Me thod Room Air 10/25/24 07:50 10/25/24 09:19 10/25/24 09:19 Temperature 99.2 F Pulse Rate Pulse Rate [Pulse Oximeter] 90 Pulse Rate [Right Radial] Respiratory Rate 20 20 Blood Pressure [Le ft Arm] 141/109 H Blood Pressure [Ri ght Arm] Pulse Oximetry 96 99 99 Oxygen Delivery Me thod Room Air Room Air DS: Data Data Completed and Pending Labs on day of discharge: Labs from last 24 hours 10/25/24 06:54 WBC 8.61 RBC 4.18 L Hgb 13.0 L Hct 39.2 MCV 94 MCH 31 MCHC 33 Plt Count 120 L Discharge Plan Discharge Disposition: [facility] Date of Admission: 10/22/24 20:58 Attending Provider on Discharge: Daksha Vera Consulting Providers: Abrahan Gallagher Primary Care Provider: Azael Beard Condition: Stable Discharge Medications: New acetaminophen 650 mg Tablet Extended Release 1,300 mg PO Q8H Qty: 90 0RF oxycodone 5 mg Tablet 5 mg PO Q4H PRN (Reason: Pain) Qty: 30 0RF Xarelto 10 mg Tablet 10 mg PO DAILY Qty: 3 0RF aspirin 81 mg tablet,chewable 81 mg PO BID Qty: 50 0RF Continued venlafaxine 75 mg tablet extended release 24hr 75 mg PO DAILY quetiapine 25 mg tablet 25 mg PO QHS melatonin 3 mg tablet 6 mg PO HS PRN hyoscyamine sulfate 0.125 mg tablet, sublingual 0.125 mg PO TID PRN lorazepam 0.5 mg tablet 0.5 mg PO Q4H PRN morphine concentrate 100 mg/5 mL (20 mg/mL) solution 5 mg PO Q4H Discharge Orders: Discharge Order (Routine); Ordered 10/25/24 Ordered By: Hang Casas Consulting provider completed their portion of the discharge: Yes Additional Instructions: The hospital team understands that 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 He received standard of care treatment for his hip fracture. He did quite well with surgery and immediately post-operatively. We have not seen any superimposed delirium. Despite hospice status, he was a good candidate for surgery. He is ambulatory at a baseline and terminal sedation, understandably, was not pursued by the family. Our suggestion is to give him the best opportunity to have a short term successful rehab with the hip fixation. To that end, we recommend 5 days total of Xarelto anticoagulation (He has received two doses in acute stay), followed by 25 days of BID aspirin. We recommend routine therapies to help him remain as ambulatory and safe from falls as possible. We recommend scheduled extended release acetaminophen and limited use of oxycodone. Staff can decide if he responds better to his previous oral morphine or trial the oral oxycodone. Both will increase risk of falls and delirium. Ice, reassurance and schedule Tylenol are the best options. Activity Level: Up with assist, Weight Bearing as Tolerated and Use Walker Activity Restrictions: Wound: ? Remove surgical dressings after 7-10 days. Remove these dressings sooner if integrity is in question. ? No immersing wound in water; showering okay; light scrub with your hand and body soap, rinse, dab dry ? Sutures are under the skin, will dissolve; allow surgical glue to come off naturally; do not scrub the wound or apply ointments/lotions ? Call our office with any redness that streaks, excessive drainage from the wound, or wound gapping. Ice/Elevate: ? Ice as needed for swelling and discomfort; elevate extremity frequently above the heart. Motion/Exercise: ? Weight bear as tolerated operative extremity (walker/cane for ambulation assistance as needed) ? Per PT/OT. ? Straight leg raises daily: 1-2 sets of 10 reps Pain Medications: ? Oral narcotic as prescribed. Wean as tolerated. Additional acetaminophen as needed Blood Clot Prevention (DVT) postsurgical: ? Medication: 3 days of xarelto, followed by 25 days 81 mg aspirin by mouth twice daily (1 month total treatment) Driving: ? Do not drive while taking narcotic pain medication ? Anticipate 4-6 weeks no driving if operative leg is driving leg Dental: ? No elective dental work for 3 months post-op. If there is an urgent/emergent dental need, contact our office for an antibiotic prescription. Smoking/Alcohol: ? Do not smoke; do no drink alcohol especially when taking postoperative oral narcotic medication Seek Care from you Primary Care Provider if you experience the following issues in the postoperative phase and beyond: ? Bacterial infections such as: pneumonia, bacterial skin infection (cellulitis), UTI, high fever, chills unrelated to the operative body part - call your primary care physician urgently for treatment in hopes to protect your health and the metal implant. Referrals: ? PT, OT per patient preference - evaluate & treat (gait training, ROM, ADLs) Vaccines: ? No vaccines until 4-6 weeks postop Follow up: ? HER[facility]STO visit in 1-2 weeks. We understand that since patient is under hospice care, if follow-up visit in clinic is not indicated, phone call from your facility for update on patient will be fine. If there are any acute concerns regarding your surgery, please call our orthopedic clinic ([phone]) Discharge Diet: Regular Dysphagia Food: Level 5- Minced & Moist Dysphagia Liquid: Level 3- Moderately Thick (Honey) Follow Up Appointments: Azael Beard MD [Primary Care Provider] - (3-5 days) Hang Casas PA-C [Physician Medical Manager] - (2 weeks) Forms: [employer] Info Instructions Admit to: SNF Discharge Potential: Poor Length of Stay: >90 days Can use facility standing orders?: Yes Code Status: DNR/DNI Rehab Potential: Fair Therapy: Physical Therapy and Occupational Therapy Therapy Orders: Evaluate and Treat and Gait Training Oxygen: No Urinary Catheter: No Hospice Evaluate and Admit: readmit to hospice (if this was withdrawn during acute hospital stay) - contact [facility] with update and our notes. Orders are good >30 days: Yes
== END 2024-10-25 12:30 | disposition hospice, inpatient (51) | DRG 481 ==
LOC: ED 18:57 → MEDSURG 19:47
PROVIDERS: Family Medicine; Orthopaedic Surgery Sports Medicine; Admitting Provider Family Medicine; Emergency Provider Student in an Organized Health Care Education/Training Program; PCP Family Medicine; Visit Provider Family Medicine
PROC: 0QS704Z Reposition Left Upper Femur with Internal Fixation Device, Open Approach (ICD-10-PCS; principal; 2024-10-23 14:00)
DX: S72.032A Displaced midcervical fracture of left femur, initial encounter for closed fracture (principal); F01.C11 Vascular dementia, severe, with agitation; F02.C11 Dementia in other diseases classified elsewhere, severe, with agitation; I48.20 Chronic atrial fibrillation, unspecified; G89.18 Other acute postprocedural pain; R13.19 Other dysphagia; C07 Malignant neoplasm of parotid gland; M16.0 Bilateral primary osteoarthritis of hip; I10 Essential (primary) hypertension; N39.498 Other specified urinary incontinence; R15.9 Full incontinence of feces; I67.9 Cerebrovascular disease, unspecified; F41.9 Anxiety disorder, unspecified; W18.30XA Fall on same level, unspecified, initial encounter; Y92.129 Unspecified place in nursing home as the place of occurrence of the external cause; G20.C Parkinsonism, unspecified; G31.83 Neurocognitive disorder with Lewy bodies; Z79.01 Long term (current) use of anticoagulants; Z79.82 Long term (current) use of aspirin
CPT/HCPCS: 01230; 36415; 64450; 70450; 71045; 72125; 73502; 73700; 76000; 76942; 80048; 82803; 83735; 84484; 85025; 85027; 85610; 92610; 93005; 94761; 97110; 97116; 97161; 97530; 99100; 99140; 99285; A9270; C1713; J0690; J1100; J1171; J1940; J2250; J2371; J2405; J2704; J2795; J3490; J7120

== ENCOUNTER 2024-10-25 12:20 | Outpatient (CLI) | payer MEDICARE, OTHER, SELFPAY | END 2024-10-25 12:21 | disposition home or self-care (01) | LOC: AMB 10-28 10:00 | PROVIDERS: PCP Family Medicine; Visit Provider Internal Medicine | DX: Z98.890 Other specified postprocedural states (principal); S72.002A Fracture of unspecified part of neck of left femur, initial encounter for closed fracture; Z78.9 Other specified health status | CPT/HCPCS: A0425; A0428 ==